=== PATIENT | male | born 1960 | race African-American/Black ===

== ENCOUNTER 2016-09-24 11:37 | Emergency (ER) | payer MEDICAID ==
[~2016-09-24] VITALS: Ht 185.4 cm; Wt 95.0 kg
[~2016-09-24 11:37] MED LIST: CIPR500T2 PO; COUM3TAB PO; COUM5TAB PO; FINA5TAB2 PO; HUMALOG SQ; LEVEMIR SQ; LISI-515 PO; METO25TA3 PO; TAMS0.4C4 PO; VITA500T PO; insulin needles SQ
[2016-09-24 11:39] VITALS: BP 130/65; PULSE 78; RESP 16; TEMP 98.1; O2SAT 96
--- NOTE | 2016-09-24 12:10 | PD ---
HPI Chief Complaint: Syncope/Near-Syncope Time Seen by Provider: 12:10 Travel History International Travel<30 days: No Contact w/Intl Traveler<30days: No Traveled to known affect area: No History of Present Illness HPI 56-year-old Afro-[place] male presents to emergency department with reports of recurrent syncope, generalized weakness, and abdominal pain in the lower abdomen for the past 4 days. Patient was seen by Dr. Rene, the urologist earlier this morning for history of his increasing PSA, and was noted to have symptoms of dizziness, intermittent fever, and question syncope. Urinalysis was performed at that time showing no obvious signs of UTI. Patient is voiding. And moving his bowels appropriately. He denies nausea or vomiting. He has history of type 2 diabetes treated with insulin with high blood sugar [address] Rene's office. Patient denies headache, or upper respiratory symptoms. He denies chest pain. He has a history of atrial fibrillation for which he takes Coumadin. He denies shortness of breath. He states he did not take his long-acting insulin today, as he was worried he might have low sugars due to his generalized weakness. He has no known drug allergies. PFSH Past Medical History Hx Anticoagulant Therapy: Yes Cardiovascular Problems: No Diabetes: Yes Diminished Hearing: No Genitourinary: No Musculoskeletal: No Neurologic: Yes (VERTIGO) Reproductive: No Respiratory: No Social History Alcohol Use: Yes (OCCASIONALLY) Tobacco Use: No Substance Use: No Allergies-Medications (Allergen,Severity, Reaction): Coded Allergies: No Known Allergies (Verified , 09/24/16) Reported Meds & Prescriptions Reported Meds & Active Scripts Active Ciprofloxacin (Ciprofloxacin HCl) 500 Mg Tab 500 Mg PO BID Metoprolol Tartrate 25 Mg Tab 25 Mg PO DAILY Tamsulosin (Tamsulosin HCl) 0.4 Mg Cap 0.4 Mg PO BID Reported Humalog Inj (Insulin Human Lispro) 1,000 Unit/10 Ml Vial 10 Units SQ BIDAC Warfarin 4 Mg Tab 8 Mg PO HS Proscar (Finasteride) 5 Mg Tab 5 Mg PO HS Do not crush. Levemir Inj (Insulin Detemir) 1,000 unit/ 10 ML Vial 10 Units SQ HS Do not mix with any other Insulin. Lisinopril 20 Mg Tab 20 Mg PO BID Review of Systems ROS Limitations: Poor Historian General / Constitutional: Positive: Fever (he states intermittent.), Chills, Weight Loss Eyes: No: Visual changes HENT: Positive: Lightheadedness, No: Headaches, Vertigo, Sore Throat, Rhinitis , Rhinorrhea, Congestion, Neck Stiffness, Neck Pain, Masses, Ear Discharge, Earache Cardiovascular: Positive: Irregular Rhythm (patient has history of atrial fibrillation.), No: Chest Pain or Discomfort Respiratory: No: Cough, Shortness of Breath, Wheezing Gastrointestinal: Positive: Nausea, Abdominal Pain (lower abdominal pain), Loss of Appetite, No: Vomiting, Diarrhea Genitourinary: Positive: Frequency (no more than usual.), Nocturia, Hematuria, Pelvic Pain, No: Urgency, Dysuria, Decreased Urinary Output, Flank Pain Musculoskeletal: Positive: Weakness (generalized), No: Myalgias, Arthralgias, Limited ROM, Cramping, Edema, Pain Skin: No Rash Neurologic: No: Weakness Psychiatric: No: Depression Endocrine: No: Polydipsia Hematologic/Lymphatic: No: Easy Bruising Physical Exam Narrative GENERAL: Patient appears in mild distress. SKIN: Warm and mildly diaphoretic. Normal color. Decreased turgor. HEAD: Atraumatic. Normocephalic. EYES: Pupils equal and round. No scleral icterus. No injection or drainage. Patient has left-sided strabismus. ENT: No nasal bleeding or discharge. Mucous membranes pink and somewhat dry. NECK: Trachea midline. No JVD. Supple and nontender. CARDIOVASCULAR: Regular rate and rhythm. No murmurs gallops or rubs. RESPIRATORY: No accessory muscle use. Clear to auscultation. Breath sounds equal bilaterally. GASTROINTESTINAL: Abdomen soft, patient has mild to moderate tenderness in the right lower quadrant, without guarding or rebound, nondistended. Hepatic and splenic margins not palpable. Patient does have notable right sided flank tenderness with percussion. MUSCULOSKELETAL: Extremities without clubbing, cyanosis, or edema. No obvious deformities. NEUROLOGICAL: Awake and alert. No obvious cranial nerve deficits. Motor grossly within normal limits. Five out of 5 muscle strength in the arms and legs. Normal speech. PSYCHIATRIC: Appropriate mood and affect; insight and judgment normal. Data Data Last Documented VS Vital Signs Date Time Temp Pulse Resp B/P Pulse Ox O2 Delivery O2 Flow Rate FiO2 09/24/16 12:43 20 09/24/16 12:32 98 Room Air 09/24/16 12:11 85 09/24/16 12:11 142/87 09/24/16 11:39 98.1 Orders Electrocardiogram (09/24/16 12:17) Complete Blood Count With Diff (09/24/16 12:17) Comprehensive Metabolic Panel (09/24/16 12:17) Magnesium (Mg) (09/24/16 12:17) Ckmb (Isoenzyme) Profile (09/24/16 12:17) Troponin I (09/24/16 12:17) Act Partial Throm Time (Ptt) (09/24/16 12:17) Prothrombin Time / Inr (Pt) (09/24/16 12:17) Urinalysis - C+S If Indicated (09/24/16 12:17) Blood Glucose (09/24/16 12:17) Ecg Monitoring (09/24/16 12:17) Iv Access Insert/Monitor (09/24/16 12:17) Oximetry (09/24/16 12:17) Sodium Chloride 0.9% Flush (Ns Flush) (09/24/16 12:30) Sodium Chlor 0.9% 1000 Ml Inj (Ns 1000 M (09/24/16 12:17) Orthostatic Vital Signs (09/24/16 12:17) Lipase (09/24/16 12:17) Lactic Acid (09/24/16 12:17) Ct Abd/Pel W Iv Contrast(Rout) (09/24/16 12:17) Morphine Inj (Morphine Inj) (09/24/16 12:30) Ondansetron Inj (Zofran Inj) (09/24/16 12:30) Blood Culture (09/24/16 12:17) Oral Contrast - Adult (09/24/16 12:38) Urine Culture (09/24/16 12:40) Blood Glucose (09/24/16 13:16) Blood Glucose (09/24/16 14:16) Sodium Chlor 0.9% 1000 Ml Inj (Ns 1000 M (09/24/16 13:46) Insulin Human Regular Inj (Novolin R Inj (09/24/16 13:30) Levofloxacin 750 Mg Premix Inj (Levaquin (09/24/16 13:30) Diatrizoate Liq ( Gastroview Liq) (09/24/16 14:23) Morphine Inj (Morphine Inj) (09/24/16 16:15) Iohexol 350 Inj (Omnipaque 350 Inj) (09/24/16 16:20) Tray, Coude Stratton 16fr (09/24/16 17:04) Urinary Catheter Insert/Apply (09/24/16 17:04) Labs Laboratory Tests Test 09/24/16 09/24/16 12:25 12:40 White Blood Count 7.8 TH/MM3 Red Blood Count 4.12 MIL/MM3 Hemoglobin 12.5 GM/DL Hematocrit 36.9 % Mean Corpuscular Volume 89.4 FL Mean Corpuscular Hemoglobin 30.4 PG Mean Corpuscular Hemoglobin 34.0 % Concent Red Cell Distribution Width 13.7 % Platelet Count 192 TH/MM3 Mean Platelet Volume 10.6 FL Neutrophils (%) (Auto) 90.1 % Lymphocytes (%) (Auto) 5.9 % Monocytes (%) (Auto) 3.8 % Eosinophils (%) (Auto) 0.1 % Basophils (%) (Auto) 0.1 % Neutrophils # (Auto) 7.0 TH/MM3 Lymphocytes # (Auto) 0.5 TH/MM3 Monocytes # (Auto) 0.3 TH/MM3 Eosinophils # (Auto) 0.0 TH/MM3 Basophils # (Auto) 0.0 TH/MM3 CBC Comment DIFF FINAL Differential Comment Prothrombin Time 14.1 SEC Prothromb Time International 1.3 RATIO Ratio Activated Partial 34.3 SEC Thromboplast Time Sodium Level 137 MEQ/L Potassium Level 5.1 MEQ/L Chloride Level 100 MEQ/L Carbon Dioxide Level 27.3 MEQ/L Anion Gap 10 MEQ/L Blood Urea Nitrogen 19 MG/DL Creatinine 1.81 MG/DL Estimat Glomerular Filtration 47 ML/MIN Rate Random Glucose 452 MG/DL Lactic Acid Level 1.5 mmol/L Calcium Level 9.6 MG/DL Magnesium Level 2.1 MG/DL Total Bilirubin 0.7 MG/DL Aspartate Amino Transf 16 U/L (AST/SGOT) Alanine Aminotransferase 14 U/L (ALT/SGPT) Alkaline Phosphatase 89 U/L Total Creatine Kinase 35 U/L Troponin I 0.02 NG/ML Total Protein 8.5 GM/DL Albumin 3.4 GM/DL Lipase 151 U/L Urine Color YELLOW Urine Turbidity HAZY Urine pH 5.0 Urine Specific [place] 1.016 Urine Protein NEG mg/dL Urine Glucose (UA) 1000 mg/dL Urine Ketones 10 mg/dL Urine Occult Blood NEG Urine Nitrite NEG Urine Bilirubin NEG Urine Urobilinogen LESS THAN 2.0 MG/DL Urine Leukocyte Esterase MOD Urine RBC 1 /hpf Urine WBC 23 /hpf Urine WBC Clumps OCC Urine Squamous Epithelial <1 /hpf Cells Urine Bacteria MANY /hpf Microscopic Urinalysis Comment CULTURE INDICATED MDM Medical Decision Making Medical Screen Exam Complete: Yes Emergency Medical Condition: Yes Medical Record Reviewed: Yes Differential Diagnosis Electrolyte imbalance. Dehydration. Pyelonephritis. Possible obstruction in the right kidney. Renal colic. Appendicitis. Pancreatitis. History of syncopal episode. Narrative Course Patient is medically stable at time of exam. EKG shows a normal sinus rhythm without significant ST changes. Labs ordered including a fingerstick glucose, CBC, CMP, lactic acid, lipase, magnesium, PT PTT and INR, troponin, and urinalysis. Blood cultures were ordered 2. Orthostatic vital signs are ordered. CT abdomen and pelvis with IV contrast ordered. Patient is given 4 mg Zofran as well as 4 mg morphine IV. Patient is given 1000 mg normal saline bolus. CBC is unremarkable with a white count of 7.8. RBC slightly low at 4.12. Hemoglobin was 12.5. Hematocrit is 36.9. There is also right shift with neutrophils percentage of 98.1. CMP shows a BUN of 19. Creatinine 1.81. GFR estimate 47. Glucose is elevated at 452. Lactic acid is 1.5. Total creatinine kinase is 35 total protein is 8.5. Lipase was 151. Urinalysis shows urine glucose of the thousand, urine ketones of 10, moderate leukocyte esterase esterase with 23 white blood cells per high-power field, and occasional white blood cell clumps. There are many urine bacteria. Urine is cultured. 1330 hrs. Patient was given levofloxacin 750 mg IV, as well as 2 L of normal saline IV total, and he is given insulin 10 units IV. Blood sugars to be rechecked in one hour. CT of the abdomen and pelvis is still pending. Repeat blood sugar at 1615 showed it to be 287. Patient is given an additional [address] scan shows #1 very distended and thick-walled urinary bladder with prostatomegaly. These changes are likely related to chronic bladder outlet obstruction. #2 a 10 mm partially calcified nodule in the right lower lobe with suggested follow-up recommended. 1650 hrs. call was placed to Dr. Rene, the patient's urologist, and the patient was discussed with Dr. Tinsley, who was covering for him. He recommended placing a Stratton catheter, and discharging the patient home with antibiotic treatment and follow with Dr. Rene. 16 daily Stratton was ordered with leg bag for discharge. Patient will be discharged home with a prescription for Levaquin 500 mg daily for 10 days. Patient is to continue the Stratton until seen in follow-up with Dr. Rene's office. Patient is to use his insulin as previously prescribed at home. Patient follow with his primary care physician regarding his diabetes and insulin. Patient can return to emergency department if worsening symptoms develop. Diagnosis Primary Impression: Prostatitis, acute Additional Impressions: Urinary tract infection Qualified Code: N30.00 - Acute cystitis without hematuria Hyperglycemia due to type 2 diabetes mellitus Qualified Code: E11.65 - Type 2 diabetes mellitus with hyperglycemia, with long-term current use of insulin Lower urinary tract obstruction Referrals: Tanner Rene DO call for appointment Patient Instructions: Stratton Catheter Placement and Care (ED), General Instructions, Prostatitis (ED), Urinary Retention in Men (ED), Urinary Tract Infection in Men (DC) Med/Other Pt SpecificInfo: Prescription(s) given Disposition: 01 DISCHARGE HOME Condition: Stable Jori Valadez Sep 24, 2016 12:10
[2016-09-24 12:11] VITALS: BP 142/87; PULSE 80; RESP 18; O2SAT 98
[2016-09-24] MEDS ORDERED: SODIUM CHLOR 0.9% 1000 ML INJ 1,000 ML IV ONE ×2 (12:17→13:46)
[2016-09-24] MEDS ORDERED: SODIUM CHLORIDE 0.9% FLUSH 5 ML FLUSH IVF PRN (12:30)
[2016-09-24] MEDS ORDERED: ONDANSETRON HCL 4 MG/2 ML VIAL IVP ONE (12:30)
[2016-09-24] MEDS ORDERED: MORPHINE SULFATE 4 MG/ML INJ IV PUSH ONE ×2 (12:30→16:15)
[2016-09-24 12:32] VITALS: O2SAT 98
[2016-09-24 12:41] LABS: BASOPHIL % 0.1 % (0.0-2.0); EOSINOPHIL % 0.1 % (0.0-4.0); HEMATOCRIT 36.9 % (39.0-51.0); HEMO FLAGS DIFF FINAL; LYMPH % 5.9 % (9.0-44.0); LYMPHOCYTE # 0.5 TH/MM3 (1.0-4.8); MEAN CELL VOLUME 89.4 FL (80.0-100.0); MEAN CORPUSCULAR HEMOGLOBIN 30.4 PG (27.0-34.0); MONO % 3.8 % (0.0-8.0); NEUT % 90.1 % (16.0-70.0); PLATELET COUNT 192 TH/MM3 (150-450); RED BLOOD COUNT 4.12 MIL/MM3 (4.50-5.90); RED CELL DISTRIBUTION WIDTH 13.7 % (11.6-17.2); WHITE BLOOD COUNT 7.8 TH/MM3 (4.0-11.0)
[2016-09-24 13:01] LABS: APTT (PATIENT) 34.3 SEC (24.3-30.1); INTERNATIONAL NORMALIZED RATIO 1.3 RATIO; PROTHROMBIN TIME - PATIENT 14.1 SEC (9.8-11.6)
[2016-09-24 13:10] LABS: BACTERIA, URINE MANY /hpf; BLOOD, URINE NEG (NEG); COMMENT (UR) CULTURE INDICATED; CULTURE IF INDICATED CULTURE INDICATED; GLUCOSE,URINE 1000 mg/dL (NEG); KETONE, URINE 10 mg/dL (NEG); NITRITE,URINE NEG (NEG); SQUAMOUS EPITHELIAL CELL URINE <1 /hpf (0-5); URINE COLOR YELLOW (YELLW/STRAW)
[2016-09-24 13:11] LABS: ALKALINE PHOSPHATASE 89 U/L (45-117); ALT (GPT) 14 U/L (12-78); ANION GAP 10 MEQ/L (5-15); AST (GOT) 16 U/L (15-37); BICARBONATE 27.3 MEQ/L (21.0-32.0); BLOOD UREA NITROGEN 19 MG/DL (7-18); CHLORIDE 100 MEQ/L (98-107); CREATINE KINASE 35 U/L (39-308); GLOMERULAR FILTRATION RATE 47 ML/MIN (>89); MAGNESIUM 2.1 MG/DL (1.5-2.5); POTASSIUM 5.1 MEQ/L (3.5-5.1); SODIUM (NA) 137 MEQ/L (136-145); TOTAL BILIRUBIN ADULT 0.7 MG/DL (0.2-1.0)
[2016-09-24] MEDS ORDERED: INSULIN HUMAN REGULAR 1,000 UNITS/10 ML VIAL IV PUSH ONE (13:30)
[2016-09-24] MEDS ORDERED: LEVOFLOXACIN 750 MG PREMIX INJ 150 ML IV ONE (13:30)
[2016-09-24] MEDS ORDERED: PROS5TAB PO (13:53)
[2016-09-24] MEDS ORDERED: WARF-20 PO (13:53)
[2016-09-24] MEDS ORDERED: HUMALOG SQ (13:54)
[2016-09-24] MEDS ORDERED: DIATRIZOATE MEGLUM/DIATRIZOATE SOD 9 ML CUP ONE (14:23)
[2016-09-24 14:45] VITALS: BP 137/89; PULSE 76; RESP 18; O2SAT 99
[2016-09-24] MEDS ORDERED: IOHEXOL 350 MG/ML 10 ML VIAL (for RAD DIAG) IV ONE (16:20)
--- NOTE | 2016-09-24 16:42 | RADRPT ---
EXAM DATE/TIME: 09/24/2016 15:59 [facility] COMPARISON: No previous studies available for comparison. INDICATIONS : Persistent abdominal pain with dizziness. IV CONTRAST: 100 cc Visipaque (iodixanol) IV ORAL CONTRAST: Prescribed oral contrast ingested. RADIATION DOSE: 14.05 CTDIvol (mGy) MEDICAL HISTORY : Hypertension. Diabetes mellitus type 1. SURGICAL HISTORY : None. ENCOUNTER: Initial ACUITY: 1 day PAIN SCALE: 5/10 LOCATION: Right lower quadrant TECHNIQUE: Volumetric scanning of the abdomen and pelvis was performed. Using automated exposure control and ad justment of the mA and/or kV according to patient size, radiation dose was kept as low as reasonably achievable to obtain optimal diagnostic quality images. FINDINGS: LOWER LUNGS: There is an essentially calcified nodule in the right lower lobe measuring 10 mm. LIVER: There is a 6 mm low density lesion in the right posterior liver. It is too small to characterize. The re is mild focal fat adjacent to the falciform ligament. There is no dilation of the biliary tree. No calcified gallstones. SPLEEN: Mildly enlarged measuring 13.8 cm in length. No focal lesion is seen. PANCREAS: There are calcifications within the pancreatic head and uncinate process. No duct dilatation or solid mass is seen. KIDNEYS: Normal in size and shape. There is no mass, stone or hydronephrosis. ADRENAL GLANDS: Within normal limits. VASCULAR: There is no aortic aneurysm. There is moderate atherosclerotic disease. BOWEL/MESENTERY: The stomach, small bowel, and colon demonstrate no acute abnormality. There is no free intraperitone al air or fluid. ABDOMINAL WALL: Within normal limits. RETROPERITONEUM: There is no lymphadenopathy. BLADDER: Urinary bladder is very distended and demonstrates circumferential wall thickening. No mass or calcif ications are seen. REPRODUCTIVE: The prostate gland is enlarged. INGUINAL: There is no lymphadenopathy or hernia. MUSCULOSKELETAL: There are degenerative changes of the lumbar spine but no acute osseous abnormality is seen. CONCLUSION: 1. No acute finding is identified within the abdomen or pelvis. 2. Very distended and thick-walled urinary bladder with prostatomegaly. These changes are likely rela nahun to chronic bladder outlet obstruction. 3. There is a 10 mm partially calcified nodule in the right lower lobe. Suggest followup to confirm s tability. 4. Nonacute findings include mild splenomegaly, moderate atherosclerotic disease, and pancreatic calc ifications suggestive of prior pancreatitis. Ventura Hernandez MD on September 24, 2016 at 16:35 Board Certified Radiologist. This report was verified electronically.
[2016-09-24] MEDS ORDERED: LEVA500T PO (17:36)
[2016-09-24] MEDS ORDERED: TRAM50TA PO (17:36)
[2016-09-24 17:45] VITALS: BP 131/74; PULSE 70; RESP 18; O2SAT 98
[2016-09-24 18:34] VITALS: BP 134/76; PULSE 72; RESP 18; O2SAT 98
--- NOTE | 2016-09-25 15:46 | EKG ---
Date Performed: 09/24/2016 Time Performed: 12:23:58 PTAGE: 56 years EKG: Sinus rhythm WITH SINUS ARRHYTHMIA VOLTAGE CRITERIA FOR LVH ABNORMAL ECG PREVIOUS TRACING : 02/19/2013 07.13 No significant change from previous tracing noted. DOCTOR: Kyle Kathleen Interpretating Date/Time 09/25/2016 15:45:15
[2016-10-04] MEDS ORDERED: METO25TA3 PO (16:13)
[2016-10-04] MEDS ORDERED: NOVORP2 SQ (16:26)
[2016-10-04] MEDS ORDERED: LEVEMIR SQ (17:02)
[2016-10-08] MEDS ORDERED: NOVORP2 SQ (12:23)
[2016-10-08] MEDS ORDERED: HUMALOG SQ (12:44)
[2016-10-11] MEDS ORDERED: [UNRECOGNIZED DRUG - CODE] (12:32)
[2016-10-11] MEDS ORDERED: [UNRECOGNIZED DRUG - CODE] TOP (12:32)
[2016-10-23] MEDS ORDERED: ONETKIT11 (10:49)
[2016-10-23] MEDS ORDERED: ONETTES4 (10:49)
[2016-10-23] MEDS ORDERED: ONETMIS8 (10:49)
[2016-11-08] MEDS ORDERED: NOVORP2 SQ (12:44)
[2016-12-14] MEDS ORDERED: MECL-62 PO (16:31)
[2017-01-03] MEDS ORDERED: HUMALOG SQ (08:34)
== END 2016-09-24 18:50 | disposition home or self-care (01) ==
LOC: NEPE 11:37
DX: N41.0 Acute prostatitis (principal); N30.00 Acute cystitis without hematuria; E11.65 Type 2 diabetes mellitus with hyperglycemia; N13.9 Obstructive and reflux uropathy, unspecified; B96.20 Unspecified Escherichia coli [E. coli] as the cause of diseases classified elsewhere; R94.31 Abnormal electrocardiogram [ECG] [EKG]; R53.1 Weakness; R10.30 Lower abdominal pain, unspecified; R42 Dizziness and giddiness; I48.91 Unspecified atrial fibrillation; Z79.4 Long term (current) use of insulin; Z79.01 Long term (current) use of anticoagulants; Z86.69 Personal history of other diseases of the nervous system and sense organs
CPT/HCPCS: 51703; 74177; 80053; 81001; 82550; 83605; 83690; 83735; 84484; 85025; 85610; 85730; 87040; 87077; 87086; 87186; 93005; 96361; 96374; 96375; 99285; J1815; J1956; J2270; J2405; J7030; Q9963; Q9967

== ENCOUNTER 2016-09-30 22:30 | Observation (INO) | payer MEDICAID ==
[~2016-09-30 22:30] MED LIST changes: -COUM3TAB PO; -COUM5TAB PO; -FINA5TAB2 PO; +LEVA500T PO; +PROS5TAB PO; +TRAM50TA PO; -VITA500T PO; +WARF-20 PO; -insulin needles SQ
[2016-09-30] MEDS ORDERED: MECLIZINE HCL 25 MG TAB PO ONE (22:45)
[2016-09-30] MEDS ORDERED: ONDANSETRON HCL 4 MG/2 ML VIAL IVP ONE (22:45)
[2016-09-30] MEDS ORDERED: SODIUM CHLOR 0.9% 1000 ML INJ 1,000 ML IV SCH (22:46)
--- NOTE | 2016-09-30 22:46 | PD ---
HPI Chief Complaint: syncope Time Seen by Provider: 22:38 Travel History International Travel<30 days: No Contact w/Intl Traveler<30days: No Traveled to known affect area: No History of Present Illness HPI 56-year-old male with history of atrial fibrillation on Coumadin, left eye blindness, currently being treated for prostatitis on Levaquin. He presents via EMS for evaluation of syncopal episode. The patient currently has a Stratton catheter in place. He reports a prior to arrival he was emptying the Stratton catheter when he became dizzy and passed out and landed on the ground. He woke up on the ground. He is complaining of an occipital headache where he hit his head. He has a tiny laceration there. He is complaining of some lower back pain as well. He is currently experiencing dizziness which he describes as a room spinning sensation. He denies any chest pain, shortness of breath, palpitations, nausea or vomiting, neck pain, numbness or tingling or weakness in extremities. Blood sugar was read as "high" according to EMS. He has a history of diabetes, he does not remember if he took his insulin today. No other complaints. Last tetanus vaccination 2015. PFSH Past Medical History Hx Anticoagulant Therapy: Yes Cardiovascular Problems: No Diabetes: Yes Diminished Hearing: No Genitourinary: No Musculoskeletal: No Neurologic: Yes (VERTIGO) Reproductive: No Respiratory: No Past Surgical History Prostatectomy: Yes Social History Alcohol Use: Yes (OCCASIONALLY) Tobacco Use: No Substance Use: No Allergies-Medications (Allergen,Severity, Reaction): Coded Allergies: No Known Allergies (Verified , 09/24/16) Reported Meds & Prescriptions Reported Meds & Active Scripts Active Tramadol (Tramadol HCl) 50 Mg Tab 50 Mg PO Q6H PRN Levaquin (Levofloxacin) 500 Mg Tab 500 Mg PO DAILY Tamsulosin (Tamsulosin HCl) 0.4 Mg Cap 0.4 Mg PO BID Reported Humalog Inj (Insulin Human Lispro) 1,000 Unit/10 Ml Vial 10 Units SQ BIDAC Warfarin 4 Mg Tab 8 Mg PO HS Proscar (Finasteride) 5 Mg Tab 5 Mg PO HS Do not crush. Levemir Inj (Insulin Detemir) 1,000 unit/ 10 ML Vial 10 Units SQ HS Do not mix with any other Insulin. Lisinopril 20 Mg Tab 20 Mg PO BID Review of Systems Except as stated in HPI: all other systems reviewed are Neg Physical Exam Narrative GENERAL: Well-developed well-nourished male in no acute distress answering questions appropriately. SKIN: Warm and dry. Linear 1 cm laceration occipital scalp HEAD: Skin as noted above Normocephalic. EYES: Pupils round, right pupil is reactive to light. ENT: No nasal bleeding or discharge. Mucous membranes pink and moist. NECK: Trachea midline. No JVD. CARDIOVASCULAR: Regular rate and rhythm. No murmur appreciated. RESPIRATORY: No accessory muscle use. Clear to auscultation. Breath sounds equal bilaterally. GASTROINTESTINAL: Abdomen soft, non-tender, nondistended. Hepatic and splenic margins not palpable. MUSCULOSKELETAL: No obvious deformities. Some tenderness to palpation to the lower back. NEUROLOGICAL: Awake and alert. No obvious cranial nerve deficits. Motor grossly within normal limits. Normal speech. Data Data Last Documented VS Vital Signs Date Time Temp Pulse Resp B/P Pulse Ox O2 Delivery O2 Flow Rate FiO2 10/01/16 02:00 84 16 164/77 98 09/30/16 23:03 98.0 Orders Electrocardiogram (09/30/16 22:41) Complete Blood Count With Diff (09/30/16 22:41) Comprehensive Metabolic Panel (09/30/16 22:41) Magnesium (Mg) (09/30/16 22:41) Ckmb (Isoenzyme) Profile (09/30/16 22:41) Troponin I (09/30/16 22:41) Act Partial Throm Time (Ptt) (09/30/16 22:41) Prothrombin Time / Inr (Pt) (09/30/16 22:41) Ct Brain W/O Iv Contrast(Rout) (09/30/16 22:41) Meclizine (Antivert) (09/30/16 22:45) Ondansetron Inj (Zofran Inj) (09/30/16 22:45) Spine, Lumbar - Ltd (Ap & Lat) (09/30/16 ) Sodium Chlor 0.9% 1000 Ml Inj (Ns 1000 M (09/30/16 22:46) Sodium Chlor 0.9% 1000 Ml Inj (Ns 1000 M (10/01/16 00:45) Resp Blood Gas Venous (10/01/16 ) Insulin Human Regular Inj (Novolin R Inj (10/01/16 00:45) Lactic Acid (10/01/16 00:32) Blood Gas Venous (Vbg) (10/01/16 01:15) Urinalysis - C+S If Indicated (10/01/16 01:37) Admit Order (Ed Use Only) (10/01/16 02:05) Labs Laboratory Tests Test 09/30/16 10/01/16 10/01/16 23:05 01:15 02:00 Prothrombin Time 14.2 SEC Prothromb Time International 1.3 RATIO Ratio Activated Partial 38.3 SEC Thromboplast Time White Blood Count 11.1 TH/MM3 Red Blood Count 3.99 MIL/MM3 Hemoglobin 11.8 GM/DL Hematocrit 35.7 % Mean Corpuscular Volume 89.5 FL Mean Corpuscular Hemoglobin 29.6 PG Mean Corpuscular Hemoglobin 33.1 % Concent Red Cell Distribution Width 14.2 % Platelet Count 254 TH/MM3 Mean Platelet Volume 10.0 FL Neutrophils (%) (Auto) 91.5 % Lymphocytes (%) (Auto) 4.1 % Monocytes (%) (Auto) 4.0 % Eosinophils (%) (Auto) 0.1 % Basophils (%) (Auto) 0.3 % Neutrophils # (Auto) 10.2 TH/MM3 Lymphocytes # (Auto) 0.5 TH/MM3 Monocytes # (Auto) 0.4 TH/MM3 Eosinophils # (Auto) 0.0 TH/MM3 Basophils # (Auto) 0.0 TH/MM3 CBC Comment AUTO DIFF Differential Total Cells 100 Counted Neutrophils % (Manual) 59 % Band Neutrophils % 15 % Lymphocytes % 23 % Monocytes % 1 % Neutrophils # (Manual) 8.4 TH/MM3 Metamyelocytes 2 % Differential Comment FINAL DIFF MANUAL Toxic Granulation 1+ Toxic Vacuolation PRESENT Platelet Estimate NORMAL Platelet Morphology Comment NORMAL Red Cell Morphology Comment NORMAL Sodium Level 135 MEQ/L Potassium Level 4.4 MEQ/L Chloride Level 93 MEQ/L Carbon Dioxide Level 24.8 MEQ/L Anion Gap 17 MEQ/L Blood Urea Nitrogen 29 MG/DL Creatinine 1.91 MG/DL Estimat Glomerular Filtration 44 ML/MIN Rate Random Glucose 579 MG/DL Calcium Level 9.6 MG/DL Magnesium Level 2.5 MG/DL Total Bilirubin 0.7 MG/DL Aspartate Amino Transf 29 U/L (AST/SGOT) Alanine Aminotransferase 16 U/L (ALT/SGPT) Alkaline Phosphatase 99 U/L Total Creatine Kinase 42 U/L Troponin I LESS THAN 0.02 NG/ML Total Protein 8.3 GM/DL Albumin 2.8 GM/DL Blood Gas Puncture Site PIV Blood Gas Patient Temperature 98.6 Venous Blood pH 7.34 Venous Blood Partial Pressure 36 mmHg CO2 Venous Blood Partial Pressure 34 mmHg O2 Venous Blood HCO3 19 mmol/L Venous Blood Oxygen Saturation 44 % Venous Blood Oxygen Content 6.6 Vol % Venous Blood Base Excess -5.6 mmol/L Oxygen Delivery Device RA Blood Gas Inspired Oxygen 21 % Urine Color LIGHT-YELLOW Urine Turbidity HAZY Urine pH 5.0 Urine Specific [place] 1.017 Urine Protein NEG mg/dL Urine Glucose (UA) 1000 mg/dL Urine Ketones 80 mg/dL Urine Occult Blood LARGE Urine Nitrite POS Urine Bilirubin NEG Urine Urobilinogen LESS THAN 2.0 MG/DL Urine Leukocyte Esterase MOD Urine RBC 11 /hpf Urine WBC 39 /hpf Urine Bacteria FEW /hpf Urine Mucus FEW /lpf Microscopic Urinalysis Comment CULTURE INDICATED MDM Medical Decision Making Medical Screen Exam Complete: Yes Emergency Medical Condition: Yes Medical Record Reviewed: Yes Differential Diagnosis Peripheral vertigo, central vertigo, closed head injury, intracranial hemorrhage , CVA Narrative Course 56-year-old male presents for evaluation after syncopal episode. He is currently experiencing a vertigo-like sensation. Plan is for basic lab work, EKG, CT the brain and lumbar spine x-ray. At the end of my shift the patient was signed out to Dr. Horner pending workup. Procedures EKG Prior to Arrival: Yes Scripts Metoprolol Tartrate 50 Mg Tab50 Mg PO BID #60 TAB Ref 0 Prov:Sunita Lovell MD 10/02/16 Meclizine 25 Mg Tab25 Mg PO TID PRN (VERTIGO) #60 TAB Ref 0 Prov:Sunita Lovell MD 10/02/16 Vlad Comer Sep 30, 2016 22:46
[2016-09-30 23:03] VITALS: BP 167/93; PULSE 91; RESP 18; TEMP 98; O2SAT 95
[2016-09-30 23:22] LABS: AUTOMATED NEUTROPHIL # 10.2 TH/MM3 (1.8-7.7); BASOPHIL % 0.3 % (0.0-2.0); EOSINOPHIL % 0.1 % (0.0-4.0); HEMATOCRIT 35.7 % (39.0-51.0); LYMPH % 4.1 % (9.0-44.0); LYMPHOCYTE # 0.5 TH/MM3 (1.0-4.8); MEAN CELL VOLUME 89.5 FL (80.0-100.0); MEAN CORPUSCULAR HEMOGLOBIN 29.6 PG (27.0-34.0); MEAN CORPUSCULAR HGB CONC 33.1 % (32.0-36.0); NEUT % 91.5 % (16.0-70.0); PLATELET COUNT 254 TH/MM3 (150-450); RED BLOOD COUNT 3.99 MIL/MM3 (4.50-5.90); RED CELL DISTRIBUTION WIDTH 14.2 % (11.6-17.2); WHITE BLOOD COUNT 11.1 TH/MM3 (4.0-11.0)
[2016-09-30 23:28] LABS: HEMO FLAGS AUTO DIFF
[2016-09-30 23:30] LABS: APTT (PATIENT) 38.3 SEC (24.3-30.1); INTERNATIONAL NORMALIZED RATIO 1.3 RATIO; PROTHROMBIN TIME - PATIENT 14.2 SEC (9.8-11.6)
--- NOTE | 2016-09-30 23:31 | RADRPT ---
EXAM DATE/TIME: 09/30/2016 23:07 [facility] COMPARISON: CT ABDOMEN & PELVIS W CONTRAST, September 24, 2016, 15:59. INDICATIONS : Pain from fall. MEDICAL HISTORY : None. SURGICAL HISTORY : None. ENCOUNTER: Initial ACUITY: 1 day PAIN SCORE: 5/10 LOCATION: Lumbar. FINDINGS: 3 views of the lumbar spine. Apparent urinary bladder catheter in place. Bone alignment within normal limits. No evidence of fracture. Small endplate osteophytes at every level of the lumbar spine. L4- 5 and L5-S1. CONCLUSION: Mild bony degenerative findings. No evidence of fracture. Minesh Rivas MD on September 30, 2016 at 23:27 Board Certified Radiologist. This report was verified electronically.
[2016-10-01] VITALS (12 sets, daily range): BP systolic 133–190; BP diastolic 74–92; PULSE 60–97; RESP 16–21; TEMP 97.6–98.9; O2SAT 94–98
[2016-10-01 00:02] LABS: ALKALINE PHOSPHATASE 99 U/L (45-117); ALT (GPT) 16 U/L (12-78); ANION GAP 17 MEQ/L (5-15); AST (GOT) 29 U/L (15-37); BICARBONATE 24.8 MEQ/L (21.0-32.0); BLOOD UREA NITROGEN 29 MG/DL (7-18); CHLORIDE 93 MEQ/L (98-107); GLOMERULAR FILTRATION RATE 44 ML/MIN (>89); MAGNESIUM 2.5 MG/DL (1.5-2.5); POTASSIUM 4.4 MEQ/L (3.5-5.1); SODIUM (NA) 135 MEQ/L (136-145); TOTAL BILIRUBIN ADULT 0.7 MG/DL (0.2-1.0)
[2016-10-01 00:05] LABS: CREATINE KINASE 42 U/L (39-308)
[2016-10-01] MEDS ORDERED: INSULIN HUMAN REGULAR 1,000 UNITS/10 ML VIAL IV PUSH ONE (00:45)
[2016-10-01] MEDS ORDERED: SODIUM CHLOR 0.9% 1000 ML INJ 1,000 ML IV SCH (00:45)
--- NOTE | 2016-10-01 01:24 | RADRPT ---
EXAM DATE/TIME: 10/01/2016 00:36 [facility] COMPARISON: CT BRAIN W/O CONTRAST, February 19, 2013, 6:58. INDICATIONS : Trauma, fall. RADIATION DOSE: 44.55 CTDIvol (mGy) MEDICAL HISTORY : Benign prostatic hyperplasia, (BPH). Hypertension. Diabetes. SURGICAL HISTORY : Prostatectomy. ENCOUNTER: Initial ACUITY: 1 day PAIN SCALE: 3/10 LOCATION: cranial TECHNIQUE: Multiple contiguous axial images were obtained of the head. Using automated exposure control and adj ustment of the mA and/or kV according to patient size, radiation dose was kept as low as reasonably a chievable to obtain optimal diagnostic quality images. FINDINGS: CEREBRUM: The ventricles are normal for age. No evidence of midline shift, mass lesion, hemorrhage or acute in farction. No extra-axial fluid collections are seen. POSTERIOR FOSSA: The cerebellum and brainstem are intact. The 4th ventricle is midline. The cerebellopontine angle i s unremarkable. EXTRACRANIAL: The visualized portion of the orbits is intact. SKULL: The calvaria is intact. No evidence of skull fracture. CONCLUSION: No acute intracranial findings. Minesh Rivas MD on October 01, 2016 at 1:21 Board Certified Radiologist. This report was verified electronically.
[2016-10-01 01:29] LABS: BANDS 15 % (0-6); METAMYELOCYTES 2 % (0-1); NEUTROPHIL # MANUAL DIFF 8.4 TH/MM3 (1.8-7.7); PLATELET ESTIMATE SMEAR NORMAL (NORMAL); PLATELET MORPHOLOGY NORMAL (NORMAL); POLYS (SEG NEUTROPHILS) 59 % (16-70); SCAN/DIFF FINAL DIFF MANUAL; WBC DIFF SAMPLE 100
[2016-10-01 01:30] LABS: TOXIC GRANULATION 1+ (NORMAL); TOXIC VACUOLATION PRESENT (NONE SEEN)
[2016-10-01 01:37] LABS: BLOOD GAS VENOUS BASE EXCESS -5.6 mmol/L (-2-2); BLOOD GAS VENOUS HCO3 19 mmol/L (22-26); BLOOD GAS VENOUS O2 CONTENT 6.6 Vol % (9.0-17.0); BLOOD GAS VENOUS O2 HGB SAT 44 % (70-76); BLOOD GAS VENOUS PCO2 36 mmHg (44-48); BLOOD GAS VENOUS PO2 34 mmHg (35-40); BLOOD GAS VENOUS pH 7.34 (7.360-7.400); CRITICAL VALUE NO; FIO2 21 %; OXYGEN DEVICE RA; TEMP CORR TO 98.6
[2016-10-01 01:39] LABS: DRAW SITE PIV
--- NOTE | 2016-10-01 01:56 | PD ---
Data Data Last Documented VS Vital Signs Date Time Temp Pulse Resp B/P Pulse Ox O2 Delivery O2 Flow Rate FiO2 10/01/16 01:20 88 16 138/79 98 09/30/16 23:03 98.0 Orders Electrocardiogram (09/30/16 22:41) Complete Blood Count With Diff (09/30/16 22:41) Comprehensive Metabolic Panel (09/30/16 22:41) Magnesium (Mg) (09/30/16 22:41) Ckmb (Isoenzyme) Profile (09/30/16 22:41) Troponin I (09/30/16 22:41) Act Partial Throm Time (Ptt) (09/30/16 22:41) Prothrombin Time / Inr (Pt) (09/30/16 22:41) Ct Brain W/O Iv Contrast(Rout) (09/30/16 22:41) Meclizine (Antivert) (09/30/16 22:45) Ondansetron Inj (Zofran Inj) (09/30/16 22:45) Spine, Lumbar - Ltd (Ap & Lat) (09/30/16 ) Sodium Chlor 0.9% 1000 Ml Inj (Ns 1000 M (09/30/16 22:46) Sodium Chlor 0.9% 1000 Ml Inj (Ns 1000 M (10/01/16 00:45) Resp Blood Gas Venous (10/01/16 ) Insulin Human Regular Inj (Novolin R Inj (10/01/16 00:45) Lactic Acid (10/01/16 00:32) Blood Gas Venous (Vbg) (10/01/16 01:15) Urinalysis - C+S If Indicated (10/01/16 01:37) Labs Laboratory Tests Test 09/30/16 10/01/16 23:05 01:15 Prothrombin Time 14.2 SEC Prothromb Time International 1.3 RATIO Ratio Activated Partial 38.3 SEC Thromboplast Time White Blood Count 11.1 TH/MM3 Red Blood Count 3.99 MIL/MM3 Hemoglobin 11.8 GM/DL Hematocrit 35.7 % Mean Corpuscular Volume 89.5 FL Mean Corpuscular Hemoglobin 29.6 PG Mean Corpuscular Hemoglobin 33.1 % Concent Red Cell Distribution Width 14.2 % Platelet Count 254 TH/MM3 Mean Platelet Volume 10.0 FL Neutrophils (%) (Auto) 91.5 % Lymphocytes (%) (Auto) 4.1 % Monocytes (%) (Auto) 4.0 % Eosinophils (%) (Auto) 0.1 % Basophils (%) (Auto) 0.3 % Neutrophils # (Auto) 10.2 TH/MM3 Lymphocytes # (Auto) 0.5 TH/MM3 Monocytes # (Auto) 0.4 TH/MM3 Eosinophils # (Auto) 0.0 TH/MM3 Basophils # (Auto) 0.0 TH/MM3 CBC Comment AUTO DIFF Differential Total Cells 100 Counted Neutrophils % (Manual) 59 % Band Neutrophils % 15 % Lymphocytes % 23 % Monocytes % 1 % Neutrophils # (Manual) 8.4 TH/MM3 Metamyelocytes 2 % Differential Comment FINAL DIFF MANUAL Toxic Granulation 1+ Toxic Vacuolation PRESENT Platelet Estimate NORMAL Platelet Morphology Comment NORMAL Red Cell Morphology Comment NORMAL Sodium Level 135 MEQ/L Potassium Level 4.4 MEQ/L Chloride Level 93 MEQ/L Carbon Dioxide Level 24.8 MEQ/L Anion Gap 17 MEQ/L Blood Urea Nitrogen 29 MG/DL Creatinine 1.91 MG/DL Estimat Glomerular Filtration 44 ML/MIN Rate Random Glucose 579 MG/DL Calcium Level 9.6 MG/DL Magnesium Level 2.5 MG/DL Total Bilirubin 0.7 MG/DL Aspartate Amino Transf 29 U/L (AST/SGOT) Alanine Aminotransferase 16 U/L (ALT/SGPT) Alkaline Phosphatase 99 U/L Total Creatine Kinase 42 U/L Troponin I LESS THAN 0.02 NG/ML Total Protein 8.3 GM/DL Albumin 2.8 GM/DL Blood Gas Puncture Site PIV Blood Gas Patient Temperature 98.6 Venous Blood pH 7.34 Venous Blood Partial Pressure 36 mmHg CO2 Venous Blood Partial Pressure 34 mmHg O2 Venous Blood HCO3 19 mmol/L Venous Blood Oxygen Saturation 44 % Venous Blood Oxygen Content 6.6 Vol % Venous Blood Base Excess -5.6 mmol/L Oxygen Delivery Device RA Blood Gas Inspired Oxygen 21 % MDM Supervised Visit with YAIR: Yes Interpretation(s) Afebrile Leukocytosis with 15% bandemia Renal insufficiency Glucose is 579 Troponin is normal Anion gap is 17 VBG: PH is 7.[address] of the head: No intracranial hemorrhage Differential Diagnosis Arrhythmia, electrolyte abnormality, dehydration, urinary tract infection Narrative Course This is a 56-year-old male who presents to the emergency department having had an episode of syncope followed by dizziness and weakness. Patient was placed on a monitor and an IV was established. He was found to be hyperglycemic with renal insufficiency which is similar to labs from one week ago. Patient was diagnosed with bladder outlet obstruction and a urinary tract infection one week ago and was discharged on antibiotics with a [place] catheter. He is not followed up with Dr. Rene yet. Patient was given 2 L of IV hydration, meclizine and Zofran but he continues to feel weak and dizzy. CT imaging of the head was reassuring. Patient will be admitted for continued IV hydration in the setting of syncope. Diagnosis Primary Impression: Syncope Qualified Code: R55 - Syncope, unspecified syncope type Admitting Information Admitting Physician Requests: Admit Thalia Horner MD Oct 01, 2016 01:56
[2016-10-01 02:28] LABS: BACTERIA, URINE FEW /hpf; BLOOD, URINE LARGE (NEG); COMMENT (UR) CULTURE INDICATED; CULTURE IF INDICATED CULTURE INDICATED; GLUCOSE,URINE 1000 mg/dL (NEG); KETONE, URINE 80 mg/dL (NEG); MUCUS URINE FEW /lpf (OCC); NITRITE,URINE POS (NEG); URINE COLOR LIGHT-YELLOW (YELLW/STRAW)
[2016-10-01] MEDS ORDERED: cefTRIAXone INJ 1,000 MG in SODIUM CHLORIDE 0.9% INJ 100 ML IV ONE (02:30)
[2016-10-01] MEDS ORDERED: DEXTROSE 50% IN WATER 50 ML VIAL(D50) IV PUSH PRN (03:15)
[2016-10-01] MEDS ORDERED: GLUCAGON 1 MG/ML VIAL OTHER PRN (03:15)
[2016-10-01] MEDS ORDERED: SODIUM CHLORIDE 0.9% FLUSH 5 ML FLUSH IV PRN (03:15)
[2016-10-01] MEDS: SODIUM CHLOR 0.9% 1000 ML INJ 1,000 ML IV SCH ×2 (03:59→15:50)
[2016-10-01] MEDS ORDERED: INSULIN DETEMIR 100 UNITS/ML VIAL SQ ONE (04:15)
[2016-10-01] MEDS: INSULIN ASPART SUPPLEMENTAL SCALE SQ SCH ×4 (06:51→21:32)
--- NOTE | 2016-10-01 09:06 | HHI.HP ---
[facility] No Primary Care Physician Admission Diagnosis hyperglycemia, syncope Diagnoses: Chief Complaint: dizziness Travel History International Travel<30 Days: No Contact w/Intl Traveler <30 Da: No Traveled to Known Affected Are: No History of Present Illness 56-year-old male with history of atrial fibrillation on Coumadin, left eye blindness, DM, BPH, HTN, currently being treated for prostatitis on Levaquin. He presents via EMS for evaluation of syncopal episode. He also says he has a h /o vertigo, and he reports dizziness/lightheadedness. Says he might think is related to meds. However he had this symptoms prior having started meds. The patient currently has a Miller catheter in place. Says prior to arrival he was emptying the Miller catheter when he became dizzy and passed out and landed on the ground. He woke up on the ground. He is complaining of an occipital headache where he hit his head. He has a tiny laceration there. He is complaining of some lower back pain as well. He is currently experiencing dizziness which he describes as a room spinning sensation. He denies any chest pain, shortness of breath, palpitations, nausea or vomiting, neck pain, numbness or tingling or weakness in extremities. Blood sugar was read as "high " according to EMS. He has a history of diabetes, he does not remember if he took his insulin. Denies chest pain, diaphoresis, nausea. Says he feel his heart racing at times. Says he follows with Dr Rene urology, however he missed the follow up appointment. No fever or chills. No other complaints. Review of Systems Except as stated in HPI: all other systems reviewed are Neg 12 ROS reviewe and negative except as stated in HPI Past Family Social History Past Medical History Prior bouts of vertigo Left eye blindness BPH Afib DM Past Surgical History Cystoscopy Reported Medications Reported Meds & Active Scripts Active Tramadol (Tramadol HCl) 50 Mg Tab 50 Mg PO Q6H PRN Levaquin (Levofloxacin) 500 Mg Tab 500 Mg PO DAILY Ciprofloxacin (Ciprofloxacin HCl) 500 Mg Tab 500 Mg PO BID Metoprolol Tartrate 25 Mg Tab 25 Mg PO DAILY Tamsulosin (Tamsulosin HCl) 0.4 Mg Cap 0.4 Mg PO BID Reported Humalog Inj (Insulin Human Lispro) 1,000 Unit/10 Ml Vial 10 Units SQ BIDAC Warfarin 4 Mg Tab 8 Mg PO HS Proscar (Finasteride) 5 Mg Tab 5 Mg PO HS Do not crush. Levemir Inj (Insulin Detemir) 1,000 unit/ 10 ML Vial 10 Units SQ HS Do not mix with any other Insulin. Lisinopril 20 Mg Tab 20 Mg PO BID Allergies: Coded Allergies: No Known Allergies (Verified , 09/24/16) Family History Parents healthy lived in 80s Siblings healthy Social History Denies EtOh use, tobacco use or illicit drug use Physical Exam Vital Signs Vital Signs Date Time Temp Pulse Resp B/P Pulse Ox O2 Delivery O2 Flow Rate FiO2 10/01/16 07:46 97.6 60 16 149/74 96 10/01/16 06:51 98.4 78 21 157/81 97 10/01/16 04:30 82 10/01/16 03:00 82 17 133/80 98 10/01/16 02:00 84 16 164/77 98 10/01/16 01:20 88 16 138/79 98 09/30/16 23:05 92 18 98 09/30/16 23:03 98.0 91 18 167/93 95 Physical Exam GENERAL: This is a well-nourished, well-developed patient, in no apparent distress. SKIN: No rashes, ecchymoses or lesions. Cool and dry. HEAD: Atraumatic. Normocephalic. No temporal or scalp tenderness. EYES: Pupils equal round and reactive. Extraocular motions intact. No scleral icterus. No injection or drainage. ENT: Nose without bleeding, purulent drainage or septal hematoma. Throat without erythema, tonsillar hypertrophy or exudate. Uvula midline. Airway patent. NECK: Trachea midline. No JVD or lymphadenopathy. Supple, nontender, no meningeal signs. CARDIOVASCULAR: Regular rate and rhythm without murmurs, gallops, or rubs. RESPIRATORY: Clear to auscultation. Breath sounds equal bilaterally. No wheezes , rales, or rhonchi. GASTROINTESTINAL: Abdomen soft, non-tender, nondistended. No hepato-splenomegaly , or palpable masses. No guarding. GENITOURINARY: Miller in place dak[place] color urine no hematuria. MUSCULOSKELETAL: Extremities without clubbing, cyanosis, or edema. No joint tenderness, effusion, or edema noted. No calf tenderness. Negative Homans sign bilaterally. NEUROLOGICAL: Awake and alert. Cranial nerves II through XII intact. Motor and sensory grossly within normal limits. Five out of 5 muscle strength in all muscle groups. Normal speech. Laboratory Laboratory Tests Test 09/30/16 10/01/16 10/01/16 10/01/16 23:05 01:15 02:00 03:50 Prothrombin Time 14.2 Prothromb Time International 1.3 Ratio Activated Partial 38.3 Thromboplast Time White Blood Count 11.1 Red Blood Count 3.99 Hemoglobin 11.8 Hematocrit 35.7 Mean Corpuscular Volume 89.5 Mean Corpuscular Hemoglobin 29.6 Mean Corpuscular Hemoglobin 33.1 Concent Red Cell Distribution Width 14.2 Platelet Count 254 Mean Platelet Volume 10.0 Neutrophils (%) (Auto) 91.5 Lymphocytes (%) (Auto) 4.1 Monocytes (%) (Auto) 4.0 Eosinophils (%) (Auto) 0.1 Basophils (%) (Auto) 0.3 Neutrophils # (Auto) 10.2 Lymphocytes # (Auto) 0.5 Monocytes # (Auto) 0.4 Eosinophils # (Auto) 0.0 Basophils # (Auto) 0.0 CBC Comment AUTO DIFF Differential Total Cells 100 Counted Neutrophils % (Manual) 59 Band Neutrophils % 15 Lymphocytes % 23 Monocytes % 1 Neutrophils # (Manual) 8.4 Metamyelocytes 2 Differential Comment FINAL DIFF MANUAL Toxic Granulation 1+ Toxic Vacuolation PRESENT Platelet Estimate NORMAL Platelet Morphology Comment NORMAL Red Cell Morphology Comment NORMAL Sodium Level 135 Potassium Level 4.4 Chloride Level 93 Carbon Dioxide Level 24.8 Anion Gap 17 Blood Urea Nitrogen 29 Creatinine 1.91 Estimat Glomerular Filtration 44 Rate Random Glucose 579 Calcium Level 9.6 Magnesium Level 2.5 Total Bilirubin 0.7 Aspartate Amino Transf 29 (AST/SGOT) Alanine Aminotransferase 16 (ALT/SGPT) Alkaline Phosphatase 99 Total Creatine Kinase 42 Troponin I LESS THAN 0.02 Total Protein 8.3 Albumin 2.8 Blood Gas Puncture Site PIV Blood Gas Patient Temperature 98.6 Venous Blood pH 7.34 Venous Blood Partial Pressure 36 CO2 Venous Blood Partial Pressure 34 O2 Venous Blood HCO3 19 Venous Blood Oxygen Saturation 44 Venous Blood Oxygen Content 6.6 Venous Blood Base Excess -5.6 Oxygen Delivery Device RA Blood Gas Inspired Oxygen 21 Urine Color LIGHT-YELLOW Urine Turbidity HAZY Urine pH 5.0 Urine Specific [place] 1.017 Urine Protein NEG Urine Glucose (UA) 1000 Urine Ketones 80 Urine Occult Blood LARGE Urine Nitrite POS Urine Bilirubin NEG Urine Urobilinogen LESS THAN 2.0 Urine Leukocyte Esterase MOD Urine RBC 11 Urine WBC 39 Urine Bacteria FEW Urine Mucus FEW Microscopic Urinalysis Comment CULTURE INDICATED Lactic Acid Level 0.9 Date/Time Procedure Status Source Growth 10/01/16 02:00 Urine Culture Received Urine Clean Catch Pending Result Diagram: 09/30/16230409/30/16 230 Assessment and Plan Assessment and Plan 56 yo male with: Syncope Hyperglycemia, uncontrolled DM UTI AFib rate controlled BPH HTN Monitor VS , keep normotensive, normoglycemic Check 2D ECHO. Check carotid US Check A1c Monitor on tele Neuro checks Restart home meds. Check INR, pharmacy consulted for INR level. Has chronic miller Accuchecks, ISS Check urine cultures. On IV abx Rocephin Antiemetics/laxatives as need. Pain meds per pain scale as need. DVT ppx scd/teds/on coumadin Code Status full code Discussed Condition With patient, nurse Sunita Lovell MD Oct 01, 2016 09:06
[2016-10-01] MEDS: METOPROLOL TARTRATE 25 MG TAB PO SCH (09:12)
[2016-10-01] MEDS: LISINOPRIL 20 MG TAB PO SCH ×2 (09:12→21:31)
[2016-10-01] MEDS: TAMSULOSIN HCL 0.4 MG CAP PO SCH ×2 (09:12→21:31)
[2016-10-01] MEDS: SODIUM CHLORIDE 0.9% FLUSH 5 ML FLUSH IV SCH ×2 (09:13→20:33)
[2016-10-01 10:16] LABS: HEMATOCRIT 33.4 % (39.0-51.0); HEMO FLAGS AUTO DIFF; MEAN CELL VOLUME 87.8 FL (80.0-100.0); MEAN CORPUSCULAR HEMOGLOBIN 29.2 PG (27.0-34.0); MEAN CORPUSCULAR HGB CONC 33.3 % (32.0-36.0); PLATELET COUNT 215 TH/MM3 (150-450); WHITE BLOOD COUNT 10.8 TH/MM3 (4.0-11.0)
[2016-10-01 10:27] LABS: BICARBONATE 24.3 MEQ/L (21.0-32.0); POTASSIUM 5.1 MEQ/L (3.5-5.1)
[2016-10-01 10:50] LABS: BANDS 3 % (0-6); NEUTROPHIL # MANUAL DIFF 10.3 TH/MM3 (1.8-7.7); POLYS (SEG NEUTROPHILS) 92 % (16-70); WBC DIFF SAMPLE 100
[2016-10-01 10:51] LABS: PLATELET ESTIMATE SMEAR NORMAL (NORMAL); PLATELET MORPHOLOGY NORMAL (NORMAL); SCAN/DIFF FINAL DIFF MANUAL
--- NOTE | 2016-10-01 11:13 | RADRPT ---
EXAM DATE/TIME: 10/01/2016 08:33 [place] COMPARISON: No previous studies available for comparison. INDICATIONS : Syncope. MEDICAL HISTORY : Hypertension. Benign prostatic hyperplasia, (BPH) Blind left eye. Vertigo. Afib. Diabetes. Anticoag ulant therapy. SURGICAL HISTORY : Prostatectomy. ENCOUNTER: Initial ACUITY: 1 day PAIN SCORE: 1/10 LOCATION: Bilateral neck PEAK SYSTOLIC VELOCITIES (cm/sec): ICA/CCA RATIO: Right: 0.7 Left: 1.1 ICA: Right: 97 Left: 88 CCA: Right: 134 Left: 81 ECA: Right: 81 Left: 86 VERTEBRAL: Right: 75 antegrade Left: 75 antegrade Elevated flow velocities and ICA/CCA ratios have been found to correlate with increased degrees of vessel stenosis, calculated as percentage of diameter relative to a normal segment of distal ICA/CCA FINDINGS: RIGHT CAROTID: No significant stenosis is visualized. The waveforms are within normal limits. LEFT CAROTID: Minimal noncalcified plaque is noted. No significant stenosis is visualized. The waveforms are withi n normal limits. VERTEBRAL ARTERIES: Antegrade flow is seen in both vertebral arteries. MISCELLANEOUS: None. CONCLUSION: Minimal noncalcified plaque left carotid bifurcation. Otherwise unremarkable exam; no evidence of hemodynamically significant stenosis. Antegrade flow in both vertebral arteries. Vinod Pelletier MD on October 01, 2016 at 10:58 Board Certified Radiologist. This report was verified electronically.
[2016-10-01 11:20] LABS: INTERNATIONAL NORMALIZED RATIO 1.2 RATIO; PROTHROMBIN TIME - PATIENT 13.8 SEC (9.8-11.6)
[2016-10-01] MEDS: ACETAMINOPHEN/HYDROcodone 325 MG/5 MG TAB PO PRN ×3 (12:01→20:32)
--- NOTE | 2016-10-01 14:59 | EKG ---
Date Performed: 10/01/2016 Time Performed: 00:07:33 PTAGE: 56 years EKG: Sinus rhythm MODERATE VOLTAGE CRITERIA FOR LVH, CONSIDER NORMAL VARIANT BORDERLINE ECG Compared to prior tracing no significant change PREVIOUS TRACING : 09/24/2016 12.23 DOCTOR: Mattie Drake Interpretating Date/Time 10/01/2016 14:52:14
[2016-10-01] MEDS ORDERED: WARFARIN SOD 4 MG TAB PO SCH (21:00)
[2016-10-01] MEDS ORDERED: INSULIN DETEMIR 100 UNITS/ML VIAL SQ SCH (21:00)
[2016-10-01] MEDS ORDERED: FINASTERIDE 5 MG TAB PO SCH (21:00)
[2016-10-01] MEDS ORDERED: MECLIZINE HCL 25 MG TAB PO ONE (21:15)
[2016-10-01 21:55] LABS: HEMOGLOBIN A1a 0.8 %; HEMOGLOBIN A1b 0.5 %; HEMOGLOBIN Ao 47.8 %; HEMOGLOBIN F 1.4 %; HEMOGLOBIN LA1C 2.5 %; HEMOGLOBIN P3 3.7 %
[2016-10-02] MEDS: SODIUM CHLOR 0.9% 1000 ML INJ 1,000 ML IV SCH
[2016-10-02] MEDS: ACETAMINOPHEN/HYDROcodone 325 MG/5 MG TAB PO PRN ×3 (00:18→14:59)
[2016-10-02 00:21] VITALS: BP 148/72; PULSE 89; RESP 20; TEMP 98.3; O2SAT 96
[2016-10-02] MEDS ORDERED: cefTRIAXone INJ 1,000 MG in SODIUM CHLORIDE 0.9% INJ 100 ML IV SCH (03:15)
[2016-10-02 03:47] VITALS: BP 142/76; PULSE 90; RESP 20; TEMP 98.4; O2SAT 97
[2016-10-02] MEDS: INSULIN ASPART SUPPLEMENTAL SCALE SQ SCH ×2 (06:04→11:00)
--- NOTE | 2016-10-02 07:39 | HHI.PR ---
Subjective Remarks Patient is in nad. Patient says he has pain and he thinks he has darker urine. Says he was supposed to see Dr Rene urology today. Will consult urology. He has no fever or chills. No n/v/d/c. No chest pain. Has vertigo at times. Objective Vitals Vital Signs Date Time Temp Pulse Resp B/P Pulse Ox O2 Delivery O2 Flow Rate FiO2 10/02/16 03:47 98.4 90 20 142/76 97 10/02/16 00:21 98.3 89 20 148/72 96 10/01/16 20:00 97 10/01/16 19:07 98.2 87 20 157/76 96 10/01/16 15:18 98.3 87 18 149/86 94 10/01/16 15:00 79 10/01/16 11:25 98.9 80 20 190/92 95 10/01/16 08:00 79 10/01/16 07:46 97.6 60 16 149/74 96 I/O 10/01/16 10/01/16 10/01/16 10/02/16 10/02/16 10/02/16 07:00 15:00 23:00 07:00 15:00 23:00 Intake Total 250 ml Output Total 900 ml 1450 ml 900 ml 775 ml Balance -650 ml -1450 ml -900 ml -775 ml Intake Oral 250 ml Output Urine Total 900 ml 1450 ml 900 ml 775 ml Result Diagram: 10/01/16 0910 10/01/16 0910 Imaging Last Impressions Carotid Artery Ultrasound 10/01/16 0000 Signed Impressions: Service Date/Time: Saturday, October 01, 2016 08:33 - CONCLUSION: Minimal noncalcified plaque left carotid bifurcation. Otherwise unremarkable exam; no evidence of hemodynamically significant stenosis. Antegrade flow in both vertebral arteries. Vinod Pelletier MD Head CT 09/30/16 2241 Signed Impressions: Service Date/Time: Saturday, October 01, 2016 00:36 - CONCLUSION: No acute intracranial findings. Minesh Rivas MD Lumbar Spine X-Ray 09/30/16 0000 Signed Impressions: Service Date/Time: Friday, September 30, 2016 23:07 - CONCLUSION: Mild bony degenerative findings. No evidence of fracture. Minesh Rivas MD Objective Remarks GENERAL: This is a well-nourished, well-developed patient, in no apparent distress. SKIN: No rashes, ecchymoses or lesions. Cool and dry. HEAD: Atraumatic. Normocephalic. No temporal or scalp tenderness. EYES: Pupils equal round and reactive. Extraocular motions intact. No scleral icterus. No injection or drainage. ENT: Nose without bleeding, purulent drainage or septal hematoma. Throat without erythema, tonsillar hypertrophy or exudate. Uvula midline. Airway patent. NECK: Trachea midline. No JVD or lymphadenopathy. Supple, nontender, no meningeal signs. CARDIOVASCULAR: Regular rate and rhythm without murmurs, gallops, or rubs. RESPIRATORY: Clear to auscultation. Breath sounds equal bilaterally. No wheezes , rales, or rhonchi. GASTROINTESTINAL: Abdomen soft, non-tender, nondistended. No hepato-splenomegaly , or palpable masses. No guarding. GENITOURINARY: Miller in place [place] color urine no hematuria. MUSCULOSKELETAL: Extremities without clubbing, cyanosis, or edema. No joint tenderness, effusion, or edema noted. No calf tenderness. Negative Homans sign bilaterally. NEUROLOGICAL: Awake and alert. Cranial nerves II through XII intact. Motor and sensory grossly within normal limits. Five out of 5 muscle strength in all muscle groups. Normal speech. A/P Assessment and Plan 56 yo male with: Syncope Hyperglycemia, uncontrolled DM insulin dependent A1c 8.1 UTI AFib rate controlled BPH follows with DrManoloomas will consult Dr Rene HTN Monitor VS , keep normotensive, normoglycemic Check 2D ECHO pending Carotid US reviewed without significant hemodynamically stenosis A1c 8.1 Monitor on tele Neuro checks Restart home meds. Check INR, pharmacy consulted for INR level. Has chronic miller Accuchecks, ISS Check urine cultures. On IV abx Rocephin Antiemetics/laxatives as need. Pain meds per pain scale as need. Consult Dr Rene appreciate recommendations. Seen by Dr Rene. Abdominal pain improved. Maintain Miller catheter and plan for a suprapubic prostatectomy as an outpatient. He will need to have a prostate needle biopsy first, and will need to hold his Coumadin for 1 week prior to this which will be done as an outpatient. Patient can be DC, to follow up as OP with PCP and consultants. DVT ppx scd/teds/on coumadin Code Status full code Discussed Condition With patient, nurse Sunita Lovell MD Oct 02, 2016 07:39
--- NOTE | 2016-10-02 07:41 | HHI.DCPOC ---
Discharge Care Plan Goals to Promote Your Health * To prevent worsening of your condition and complications * To maintain your health at the optimal level Directions to Meet Your Goals Take your medications as prescribed Follow your dietary instruction Follow activity as directed Keep your appointments as scheduled Take your immunizations and boosters as scheduled If your symptoms worsen call your PCP, if no PCP go to Urgent Care Center or Emergency Room Smoking is Dangerous to Your Health. Avoid second hand smoke Call the 24-hour hour crisis hotline for domestic abuse at Sunita Lovell MD Oct 02, 2016 07:41
[2016-10-02 07:43] LABS: INTERNATIONAL NORMALIZED RATIO 1.3 RATIO
[2016-10-02 07:44] LABS: AUTOMATED NEUTROPHIL # 8.2 TH/MM3 (1.8-7.7); BASOPHIL % 0.3 % (0.0-2.0); EOSINOPHIL # 0.1 TH/MM3 (0-0.4); EOSINOPHIL % 0.6 % (0.0-4.0); HEMATOCRIT 29.2 % (39.0-51.0); HEMO FLAGS DIFF FINAL; LYMPHOCYTE # 0.8 TH/MM3 (1.0-4.8); MEAN CELL VOLUME 87.9 FL (80.0-100.0); MEAN CORPUSCULAR HEMOGLOBIN 29.8 PG (27.0-34.0); MEAN CORPUSCULAR HGB CONC 33.9 % (32.0-36.0); MONO % 5.6 % (0.0-8.0); NEUT % 85.5 % (16.0-70.0); PLATELET COUNT 216 TH/MM3 (150-450); RED BLOOD COUNT 3.32 MIL/MM3 (4.50-5.90); RED CELL DISTRIBUTION WIDTH 13.7 % (11.6-17.2); WHITE BLOOD COUNT 9.6 TH/MM3 (4.0-11.0)
[2016-10-02 08:01] LABS: BICARBONATE 25.2 MEQ/L (21.0-32.0); POTASSIUM 3.7 MEQ/L (3.5-5.1)
[2016-10-02 08:25] VITALS: BP 145/83; PULSE 92; RESP 18; O2SAT 96
[2016-10-02] MEDS: METOPROLOL TARTRATE 25 MG TAB PO SCH (08:45)
[2016-10-02] MEDS: LISINOPRIL 20 MG TAB PO SCH (08:45)
[2016-10-02] MEDS: TAMSULOSIN HCL 0.4 MG CAP PO SCH (08:46)
[2016-10-02] MEDS: SODIUM CHLORIDE 0.9% FLUSH 5 ML FLUSH IV SCH (08:47)
--- NOTE | 2016-10-02 10:12 | HHI.FF ---
Face to Face Verification Diagnosis: (1) BPH (benign prostatic hyperplasia) (2) Hyperglycemia due to type 2 diabetes mellitus (3) Lower urinary tract obstruction (4) Prostatitis, acute (5) Syncope (6) Urinary tract infection Physical Therapy Order: Evaluate and Treat Home Health Nursing Order: Medical education Signs/symptoms of disease process Medication education-adverse effect Nursing assessment with vital signs I have seen patient Demarcus Cunha on 10/02/16. My clinical findings support the need for the requested home health care services because: Ltd mobility - disease progression Patient has SOB I certify that my clinical findings support that this patient is homebound because: Post-op weakness Unsteady gait/balance Sunita Lovell MD Oct 02, 2016 10:12
--- NOTE | 2016-10-02 11:20 | EC ---
Study Study Date:10/01/2016 STUDY CONCLUSIONS SUMMARY - Procedure narrative: Image quality was fair. Patient was tachycardiac through part of the exam, degrading some of the images. - Left ventricle: The cavity size was normal. Wall thickness was increased in a pattern of moderate LVH. There was concentric hypertrophy. Systolic function was normal. The estimated ejection fraction was in the range of 60% to 65%. Wall motion was normal; there were no regional wall motion abnormalities. - Right ventricle: The cavity size was mildly dilated. If LV function is below 40, please consider prescribing an ACEI or ARB or document rationale for non-use. PROCEDURE DATA STUDY STATUS: Elective. Procedure: Transthoracic echocardiography. Image quality was fair. Scanning was performed from the parasternal, apical, and subcostal acoustic windows. Study completion: The patient tolerated the procedure well. Transthoracic echocardiography. M-mode, complete 2D, complete spectral Doppler, and color Doppler. Height: Height: 73in. Weight: Weight: 189.6lb. Body mass index: BMI: 25.1kg/m^2. Body surface area: BSA: 2.11m^2. Patient status: Inpatient. CARDIAC ANATOMY LEFT VENTRICLE: The cavity size was normal. Wall thickness was increased in a pattern of moderate LVH. There was concentric hypertrophy. Systolic function was normal. The estimated ejection fraction was in the range of 60% to 65%. Wall motion was normal; there were no regional wall motion abnormalities. AORTIC VALVE: The valve appears to be grossly normal. Doppler: There was no stenosis. No significant regurgitation. Valve area: 3.77cm^2 (Vmax). Indexed valve area: 1.79cm^2/m^2 (Vmax). MITRAL VALVE: The valve appears to be grossly normal. Doppler: There was no evidence for stenosis. Trace regurgitation. Valve area by pressure half-time: 4.15cm^2. Indexed valve area by pressure half-time: 1.97cm^2/m^2. LEFT ATRIUM: The atrium was normal in size. RIGHT VENTRICLE: The cavity size was mildly dilated. PULMONIC VALVE: Not well visualized. TRICUSPID VALVE: The valve appears to be grossly normal. Doppler: There was no evidence for stenosis. Trace regurgitation. Peak gradient: 18mm Hg (D). PERICARDIUM: There was no pericardial effusion. Patient weight: 189.6lb _Ejection fraction:_ 65-75% _Fractional shortening:_ 32% up to 5Kg 5-11.5Kg 11.6-22.9Kg 23-45Kg 45-57Kg Aortic Root 7-13 <17 13-22 17-27 17-27 LA diam 6-13 <23 24-38 33-47 37-40 RVID 10-17 7-15 7-15 7-18 8-17 LVIDd 12-22 <32 24-38 33-47 37-40 LVPW 2-4 3-6 5-7 6-8 7-8 IVS 2-4 3-6 5-7 6-8 7-8 BASIC MEASUREMENTS ADULT NORMAL Left ventricle LV internal dimension, ED, chordal *39.4 mm 43-52 level, PLAX LV internal dimension, ES, chordal 27 mm 23-38 level, PLAX Fractional shortening, chordal level, 31 % >29 PLAX LV posterior wall thickness, ED 14.9 mm IVS/LVPW ratio, ED 0.98 <1.3 Volume, ED, MOD, 1-plane 100 ml Volume, ES, MOD, 1-plane 48 ml Ejection fraction, MOD, 1-plane 52 % Stroke volume, MOD, 1-plane 52 ml Volume index, ED, MOD, 1-plane 47 ml/m^2 Volume index, ES, MOD, 1-plane 23 ml/m^2 Stroke index, MOD, 1-plane 24.6 ml/m^2 Ventricular septum Septal thickness, ED 14.6 mm Aortic valve Leaflet separation 22 mm 15-26 Left atrium Anterior-posterior dimension 32 mm Anterior-posterior dimension index 1.52 cm/m^2 <2.2 BASIC MEASUREMENTS ADULT NORMAL Aortic valve Leaflet separation 22 mm 15-26 Aorta Root diameter, ED *38 mm 20-37 Left atrium Anterior-posterior dimension, ES 30 mm 19-40 Anterior-posterior dimension index, ES 1.42 cm/m^2 <2.2 LA/aortic root ratio 0.79 DOPPLER MEASUREMENTS ADULT NORMAL Aortic valve Peak velocity, S 117 cm/s Valve area, Vmax 3.77 cm^2 Valve area index, Vmax 1.79 cm^2/m^2 Mitral valve Peak E-wave velocity 55.4 cm/s Peak A-wave velocity 64.7 cm/s Pressure half-time 53 ms Peak E/A ratio 0.9 Valve area, pressure half-time 4.15 cm^2 Valve area index, pressure half-time 1.97 cm^2/m^2 Tricuspid valve Peak gradient, D 18 mm Hg Maximal inflow velocity 212 cm/s Systemic veins Estimated CVP 10 mm Hg LEGEND: Mean values are shown as u=mean value. Asterisk (*) loyd values outside specified normal range. Prepared and signed by Bob Portillo [id number]
--- NOTE | 2016-10-02 11:24 | HHI.FF ---
Face to Face Verification Diagnosis: (1) Syncope (2) Prostatitis, acute (3) Lower urinary tract obstruction (4) BPH (benign prostatic hyperplasia) (5) Hyperglycemia due to type 2 diabetes mellitus (6) Urinary tract infection Home Health Nursing Order: Medical education Signs/symptoms of disease process Medication education-adverse effect Nursing assessment with vital signs I have seen patient Demarcus Cunha on 10/02/16. My clinical findings support the need for the requested home health care services because: Ltd mobility - disease progression I certify that my clinical findings support that this patient is homebound because: Post-op weakness Sunita Lovell MD Oct 02, 2016 11:23
[2016-10-02] MEDS ORDERED: MECL-62 PO (11:28)
[2016-10-02 11:57] VITALS: BP 181/91; PULSE 97; RESP 20; TEMP 98.4; O2SAT 96
[2016-10-02] MEDS ORDERED: ENALAPRILAT 2.5 MG/2 ML VIAL IV PUSH PRN (12:45)
--- NOTE | 2016-10-02 13:37 | PD.CONS ---
[facility] Service Urology Consult Requested By Primary Care Physician No Primary Care Physician Diagnosis: History of Present Illness 56-year-old male admitted with right sided abdominal pain and flank pain. He also was experiencing dizziness and fell and sustained a laceration to his occipital lobe region. He is well-known to the urology service. His history dates back to a few months ago when he was seen in the office and was in urinary retention. His initially admitted to [facility] and due to insurance reasons was sent to [place]. He had some gross hematuria and was diagnosed with atrial fibrillation and needed to be started on Coumadin. He's had repeated bouts of urinary retention and failed medical therapy. He needs to undergo a suprapubic prostatectomy. However, his PSA has been elevated in the 5 range and is in need of undergoing a prostate needle biopsy but was recently diagnosed with prostatitis. He has been complaining of some syncopal episodes and was seen in the office last week and was sent to the emergency room for evaluation. He recently had a carotid ultrasound which did not show any significant obstruction and his head CT was negative. He does have a history of vertigo. He will need to be cleared from the cardiac standpoint prior to proceeding with any procedures in the near future. Presently he denies any fever or chills or nausea or vomiting. Review of Systems Constitutional: DENIES: Diaphoretic episodes Endocrine: DENIES: Heat/cold intolerance Eyes: COMPLAINS OF: Vision loss Ears, nose, mouth, throat: DENIES: Tinnitus Respiratory: DENIES: Apneas Cardiovascular: DENIES: Chest pain Gastrointestinal: COMPLAINS OF: Abdominal pain Musculoskeletal: DENIES: Joint pain Integumentary: DENIES: Abnormal pigmentation Hematologic/lymphatic: DENIES: Bruising Immunologic/allergic: DENIES: Eczema Neurologic: DENIES: Abnormal gait Psychiatric: DENIES: Anxiety Past Family Social History Past Medical History Atrial fibrillation BPH with obstruction and urinary retention Vertigo Diabetes Past Surgical History Cystoscopy Allergies: Coded Allergies: No Known Allergies (Verified , 09/24/16) Family History Denies any family history of prostate cancer Social History Denies smoking or drinking at present. Physical Exam Vital Signs Vital Signs Date Time Temp Pulse Resp B/P Pulse Ox O2 Delivery O2 Flow Rate FiO2 10/02/16 11:57 98.4 97 20 181/91 96 10/02/16 08:25 92 18 145/83 96 10/02/16 03:47 98.4 90 20 142/76 97 10/02/16 00:21 98.3 89 20 148/72 96 10/01/16 20:00 97 10/01/16 19:07 98.2 87 20 157/76 96 10/01/16 15:18 98.3 87 18 149/86 94 10/01/16 15:00 79 Physical Exam GENERAL: This is a well-nourished, well-developed patient, in no apparent distress. SKIN: No rashes, ecchymoses or lesions. Cool and dry. HEAD: Atraumatic. Normocephalic. No temporal or scalp tenderness. EYES: Pupils equal round and reactive. Extraocular motions intact. No scleral icterus. No injection or drainage. Blind in left eye. ENT: Nose without bleeding, purulent drainage or septal hematoma. Throat without erythema, tonsillar hypertrophy or exudate. Uvula midline. Airway patent. NECK: Trachea midline. No JVD or lymphadenopathy. Supple, nontender, no meningeal signs. CARDIOVASCULAR: Regular rate and rhythm without murmurs, gallops, or rubs. RESPIRATORY: Clear to auscultation. Breath sounds equal bilaterally. No wheezes , rales, or rhonchi. GASTROINTESTINAL: Abdomen soft, mild RLQ tenderness, nondistended. No hepato- splenomegaly, or palpable masses. No guarding. GENITOURINARY: Stratton catheter presently in place draining dakota urine. Testes descended nontender MUSCULOSKELETAL: Extremities without clubbing, cyanosis, or edema. No joint tenderness, effusion, or edema noted. No calf tenderness. Negative Homans sign bilaterally. NEUROLOGICAL: Awake and alert. Cranial nerves II through XII intact. Motor and sensory grossly within normal limits. Five out of 5 muscle strength in all muscle groups. Normal speech. Laboratory Laboratory Tests Test 10/02/16 10/02/16 06:00 06:55 Prothrombin Time 14.0 Prothromb Time International 1.3 Ratio White Blood Count 9.6 Red Blood Count 3.32 Hemoglobin 9.9 Hematocrit 29.2 Mean Corpuscular Volume 87.9 Mean Corpuscular Hemoglobin 29.8 Mean Corpuscular Hemoglobin 33.9 Concent Red Cell Distribution Width 13.7 Platelet Count 216 Mean Platelet Volume 9.5 Neutrophils (%) (Auto) 85.5 Lymphocytes (%) (Auto) 8.0 Monocytes (%) (Auto) 5.6 Eosinophils (%) (Auto) 0.6 Basophils (%) (Auto) 0.3 Neutrophils # (Auto) 8.2 Lymphocytes # (Auto) 0.8 Monocytes # (Auto) 0.5 Eosinophils # (Auto) 0.1 Basophils # (Auto) 0.0 CBC Comment DIFF FINAL Differential Comment Sodium Level 143 Potassium Level 3.7 Chloride Level 108 Carbon Dioxide Level 25.2 Anion Gap 10 Blood Urea Nitrogen 16 Creatinine 1.18 Estimat Glomerular Filtration 77 Rate Random Glucose 186 Calcium Level 8.9 Date/Time Procedure Status Source Growth 10/01/16 02:00 Urine Culture - Preliminary Resulted Urine Clean Catch Gram Negative Valentin Result Diagram: 10/02/16 0655 10/02/16 0655 Assessment and Plan Assessment and Plan 56-year-old male with history of BPH with obstruction, urinary retention, elevated PSA, with abdominal pain and recent syncopal episodes. Abdominal pain improving at present time. We'll need to maintain the Stratton catheter and we'll plan for a suprapubic prostatectomy as an outpatient. He will need to undergo medical clearance prior to this procedure given his recent syncopal episodes and other comorbidities. He will need to have a prostate needle biopsy first, and will need to hold his Coumadin for 1 week prior to this which will be done as an outpatient. We will follow with you and thank you for the consult. Tanner Rene DO Oct 02, 2016 13:37
[2016-10-02] MEDS ORDERED: MECLIZINE HCL 25 MG TAB PO SCH (14:00)
--- NOTE | 2016-10-02 19:32 | HHI.DS ---
Discharge Summary Admission Date Oct 01, 2016 at 02:06 Discharge Date: Oct 02, 2016 Admitting Diagnosis hyperglycemia, syncope (1) Syncope ICD Code: R55 Diagnosis: Principal (2) Urinary tract infection ICD Code: N39.0 Diagnosis: Secondary (3) Prostatitis, acute ICD Code: N41.0 Diagnosis: Secondary (4) Lower urinary tract obstruction ICD Code: N13.9 Diagnosis: Secondary (5) BPH (benign prostatic hyperplasia) ICD Code: N40.0 Diagnosis: Principal (6) Hyperglycemia due to type 2 diabetes mellitus ICD Code: E11.65 Diagnosis: Principal Procedures none Brief History - From Admission 56-year-old male with history of atrial fibrillation on Coumadin, left eye blindness, DM, BPH, HTN, currently being treated for prostatitis on Levaquin. He presents via EMS for evaluation of syncopal episode. He also says he has a h /o vertigo, and he reports dizziness/lightheadedness. Says he might think is related to meds. However he had this symptoms prior having started meds. The patient currently has a Miller catheter in place. Says prior to arrival he was emptying the Miller catheter when he became dizzy and passed out and landed on the ground. He woke up on the ground. He is complaining of an occipital headache where he hit his head. He has a tiny laceration there. He is complaining of some lower back pain as well. He is currently experiencing dizziness which he describes as a room spinning sensation. He denies any chest pain, shortness of breath, palpitations, nausea or vomiting, neck pain, numbness or tingling or weakness in extremities. Blood sugar was read as "high " according to EMS. He has a history of diabetes, he does not remember if he took his insulin. Denies chest pain, diaphoresis, nausea. Says he feel his heart racing at times. Says he follows with Dr Rene urology, however he missed the follow up appointment. No fever or chills. No other complaints. CBC/BMP: 10/02/16 0655 10/02/16 0655 Significant Findings Laboratory Tests Test 09/30/16 10/01/16 10/01/16 10/01/16 23:05 01:15 02:00 09:10 Prothrombin Time 14.2 SEC (9.8-11.6) Activated Partial 38.3 SEC Thromboplast Time (24.3-30.1) White Blood Count 11.1 TH/MM3 (4.0-11.0) Red Blood Count 3.99 MIL/MM3 3.80 MIL/MM3 (4.50-5.90) (4.50-5.90) Hemoglobin 11.8 GM/DL 11.1 GM/DL (13.0-17.0) (13.0-17.0) Hematocrit 35.7 % 33.4 % (39.0-51.0) (39.0-51.0) Neutrophils (%) (Auto) 91.5 % (16.0-70.0) Lymphocytes (%) (Auto) 4.1 % (9.0-44.0) Neutrophils # (Auto) 10.2 TH/MM3 (1.8-7.7) Lymphocytes # (Auto) 0.5 TH/MM3 (1.0-4.8) Band Neutrophils % 15 % (0-6) Neutrophils # (Manual) 8.4 TH/MM3 10.3 TH/MM3 (1.8-7.7) (1.8-7.7) Metamyelocytes 2 % (0-1) Toxic Granulation 1+ (NORMAL) Toxic Vacuolation PRESENT (NONE SEEN) Sodium Level 135 MEQ/L (136-145) Chloride Level 93 MEQ/L (98-107) Anion Gap 17 MEQ/L (5-15) Blood Urea Nitrogen 29 MG/DL (7-18) 27 MG/DL (7-18) Creatinine 1.91 MG/DL 1.57 MG/DL (0.60-1.30) (0.60-1.30) Estimat Glomerular Filtration 44 ML/MIN (>89) 55 ML/MIN (>89) Rate Random Glucose 579 MG/DL 388 MG/DL (74-106) (74-106) Troponin I LESS THAN 0.02 NG/ML (0.02-0.05) Total Protein 8.3 GM/DL (6.4-8.2) Albumin 2.8 GM/DL (3.4-5.0) Venous Blood pH 7.34 (7.360-7.400) Venous Blood Partial Pressure 36 mmHg (44-48) CO2 Venous Blood Partial Pressure 34 mmHg (35-40) O2 Venous Blood HCO3 19 mmol/L (22-26) Venous Blood Oxygen Saturation 44 % (70-76) Venous Blood Oxygen Content 6.6 Vol % (9.0-17.0) Venous Blood Base Excess -5.6 mmol/L (-2-2) Urine Turbidity HAZY (CLEAR) Urine Glucose (UA) 1000 mg/dL (NEG) Urine Ketones 80 mg/dL (NEG) Urine Occult Blood LARGE (NEG) Urine Nitrite POS (NEG) Urine Leukocyte Esterase MOD (NEG) Urine RBC 11 /hpf (0-3) Urine WBC 39 /hpf (0-5) Urine Bacteria FEW /hpf (NONE) Urine Mucus FEW /lpf (OCC) Neutrophils % (Manual) 92 % (16-70) Lymphocytes % 4 % (9-44) Hemoglobin A1c 8.1 % (4.3-6.0) Test 10/01/16 10/02/16 10/02/16 10/02/16 10:58 06:00 06:55 14:04 Prothrombin Time 13.8 SEC 14.0 SEC (9.8-11.6) (9.8-11.6) Red Blood Count 3.32 MIL/MM3 (4.50-5.90) Hemoglobin 9.9 GM/DL (13.0-17.0) Hematocrit 29.2 % (39.0-51.0) Neutrophils (%) (Auto) 85.5 % (16.0-70.0) Lymphocytes (%) (Auto) 8.0 % (9.0-44.0) Neutrophils # (Auto) 8.2 TH/MM3 (1.8-7.7) Lymphocytes # (Auto) 0.8 TH/MM3 (1.0-4.8) Chloride Level 108 MEQ/L (98-107) Estimat Glomerular Filtration 77 ML/MIN (>89) Rate Random Glucose 186 MG/DL (74-106) Prostate Specific Antigen 6.30 NG/ML (0.00-4.00) Imaging Last Impressions Carotid Artery Ultrasound 10/01/16 0000 Signed Impressions: Service Date/Time: Saturday, October 01, 2016 08:33 - CONCLUSION: Minimal noncalcified plaque left carotid bifurcation. Otherwise unremarkable exam; no evidence of hemodynamically significant stenosis. Antegrade flow in both vertebral arteries. Vinod Pelletier MD Head CT 09/30/16 2241 Signed Impressions: Service Date/Time: Saturday, October 01, 2016 00:36 - CONCLUSION: No acute intracranial findings. Minesh Rivas MD Lumbar Spine X-Ray 09/30/16 0000 Signed Impressions: Service Date/Time: Friday, September 30, 2016 23:07 - CONCLUSION: Mild bony degenerative findings. No evidence of fracture. Minesh Rivas MD PE at Discharge GENERAL: This is a well-nourished, well-developed patient, in no apparent distress. SKIN: No rashes, ecchymoses or lesions. Cool and dry. HEAD: Atraumatic. Normocephalic. No temporal or scalp tenderness. EYES: Pupils equal round and reactive. Extraocular motions intact. No scleral icterus. No injection or drainage. ENT: Nose without bleeding, purulent drainage or septal hematoma. Throat without erythema, tonsillar hypertrophy or exudate. Uvula midline. Airway patent. NECK: Trachea midline. No JVD or lymphadenopathy. Supple, nontender, no meningeal signs. CARDIOVASCULAR: Regular rate and rhythm without murmurs, gallops, or rubs. RESPIRATORY: Clear to auscultation. Breath sounds equal bilaterally. No wheezes , rales, or rhonchi. GASTROINTESTINAL: Abdomen soft, non-tender, nondistended. No hepato-splenomegaly , or palpable masses. No guarding. GENITOURINARY: Miller in place dakota color urine no hematuria. MUSCULOSKELETAL: Extremities without clubbing, cyanosis, or edema. No joint tenderness, effusion, or edema noted. No calf tenderness. Negative Homans sign bilaterally. NEUROLOGICAL: Awake and alert. Cranial nerves II through XII intact. Motor and sensory grossly within normal limits. Five out of 5 muscle strength in all muscle groups. Normal speech. Hospital Course 56 yo male with: Syncope Hyperglycemia, uncontrolled DM insulin dependent A1c 8.1 UTI AFib rate controlled BPH follows with Dr Rene will consult Dr Rene HTN Monitor VS , keep normotensive, normoglycemic Check 2D ECHO pending Carotid US reviewed without significant hemodynamically stenosis A1c 8.1 Monitor on tele Neuro checks Restart home meds. Check INR, pharmacy consulted for INR level. Increase metoprolol at 50 mg po bid as high BP and HR in 90s Has chronic miller Accuchecks, ISS Check urine cultures. On IV abx Rocephin Antiemetics/laxatives as need. Pain meds per pain scale as need. Consult Dr Rene appreciate recommendations. Seen by Dr Rene. Abdominal pain improved. Maintain Miller catheter and plan for a suprapubic prostatectomy as an outpatient. He will need to have a prostate needle biopsy first, and will need to hold his Coumadin for 1 week prior to this which will be done as an outpatient. Improved. Patient can be DC, to follow up as OP with PCP and consultants as OP. Pt Condition on Discharge: Stable Discharge Disposition: Disch w/ Home Health Serv Discharge Time: > 30 minutes Discharge Instructions DIET: Follow Instructions for: Heart Healthy Diet, Diabetic Diet Activities you can perform: Regular-No Restrictions Follow up Referrals: PCP Follow-up - 3-5 Days Urology - 1 Week New Medications: Meclizine (Meclizine) 25 Mg Tab 25 MG PO TID PRN VERTIGO #60 Ref 0 TAB Metoprolol Tartrate (Metoprolol Tartrate) 50 Mg Tab 50 MG PO BID Blood Pressure Management #60 Ref 0 TAB Continued Medications: Finasteride (Proscar) 5 Mg Tab 5 MG PO HS Do not crush. Manage Prostate Problems #30 Ref 0 TAB Insulin Detemir Inj (Levemir Inj) 1,000 unit/ 10 ML Vial 10 UNITS SQ HS Do not mix with any other Insulin. Blood Sugar Management Ref 0 VIAL Insulin Lispro (Human) Inj (Humalog Inj) 1,000 Unit/10 Ml Vial 10 UNITS SQ BIDAC Blood Sugar Management #1 Ref 0 VIAL Levofloxacin (Levaquin) 500 Mg Tab 500 MG PO DAILY Infection #10 TAB Lisinopril (Lisinopril) 20 Mg Tab 20 MG PO BID #30 Ref 0 TAB Tamsulosin (Tamsulosin) 0.4 Mg Cap 0.4 MG PO BID Manage Prostate Problems #90 Ref 2 CAP Tramadol (Tramadol) 50 Mg Tab 50 MG PO Q6H PRN PAIN #20 TAB Warfarin (Warfarin) 4 Mg Tab 8 MG PO HS Blood Clot Prevention #30 Ref 0 TAB Discontinued Medications: Ciprofloxacin (Ciprofloxacin) 500 Mg Tab 500 MG PO BID Infection #6 Ref 0 TAB Sunita Lovell MD Oct 02, 2016 19:32
[2016-10-02] MEDS ORDERED: METO50TA PO (19:33)
[2016-10-03] MEDS ORDERED: METOPROLOL TARTRATE 50 MG TAB PO SCH (09:00)
[2016-10-04] MEDS ORDERED: METO25TA3 PO (16:13)
[2016-10-04] MEDS ORDERED: NOVORP2 SQ (16:26)
[2016-10-04] MEDS ORDERED: LEVEMIR SQ (17:02)
[2016-10-08] MEDS ORDERED: NOVORP2 SQ (12:23)
[2016-10-08] MEDS ORDERED: HUMALOG SQ (12:44)
[2016-10-11] MEDS ORDERED: [UNRECOGNIZED DRUG - CODE] TOP (12:32)
[2016-10-11] MEDS ORDERED: [UNRECOGNIZED DRUG - CODE] (12:32)
[2016-10-15 06:58] LABS: STAT NO
[2016-10-23] MEDS ORDERED: ONETKIT11 (10:49)
[2016-10-23] MEDS ORDERED: ONETTES4 (10:49)
[2016-10-23] MEDS ORDERED: ONETMIS8 (10:49)
[2016-11-08] MEDS ORDERED: NOVORP2 SQ (12:44)
[2016-12-14] MEDS ORDERED: MECL-62 PO (16:31)
[2017-01-03] MEDS ORDERED: HUMALOG SQ (08:34)
== END 2016-10-02 15:50 | disposition home or self-care (01) ==
LOC: NEPC 22:30 → NEDH 10-01 02:06 → INTOOBSV 10-01 02:06 → NEPHCDU 10-01 04:38
PROVIDERS: ADMIT Hospitalist; ATTEND Hospitalist
DX: R55 Syncope and collapse (principal); N41.9 Inflammatory disease of prostate, unspecified; I48.91 Unspecified atrial fibrillation; Z79.01 Long term (current) use of anticoagulants; H54.42 Blindness, left eye, normal vision right eye; R42 Dizziness and giddiness; R51 Headache; M54.5 Low back pain; S01.01XA Laceration without foreign body of scalp, initial encounter; E11.65 Type 2 diabetes mellitus with hyperglycemia; Z79.4 Long term (current) use of insulin; N39.0 Urinary tract infection, site not specified; I10 Essential (primary) hypertension; W01.198A Fall on same level from slipping, tripping and stumbling with subsequent striking against other object, initial encounter; N13.8 Other obstructive and reflux uropathy; N40.1 Benign prostatic hyperplasia with lower urinary tract symptoms; R10.9 Unspecified abdominal pain; R97.20 Elevated prostate specific antigen [PSA]; B96.20 Unspecified Escherichia coli [E. coli] as the cause of diseases classified elsewhere
CPT/HCPCS: 12001; 70450; 72100; 80048; 80053; 81001; 82550; 82805; 82948; 83036; 83605; 83735; 84153; 84484; 85007; 85025; 85027; 85610; 85730; 87077; 87086; 87186; 93005; 93306; 93880; 96374; 96375; 99285; G0378; J0696; J1815; J2405; J7030

== ENCOUNTER 2016-11-16 21:46 | Emergency (ER) | payer MEDICAID ==
[~2016-11-16] VITALS: Ht 185.4 cm; Wt 80.0 kg
[~2016-11-16 21:46] MED LIST changes: -MACR100C2 PO; -PERI8.6T PO; -WALKER WHEELS/F1 MIS
[2016-11-16 21:48] VITALS: BP 147/92; PULSE 70; RESP 15; TEMP 98.5; O2SAT 99
--- NOTE | 2016-11-16 22:52 | PD ---
Physical Exam Date Seen by Provider: Nov 16, 2016 Time Seen by Provider: 22:50 Narrative 56 yo male that presents to the ED for evaluation of urinary cathether. Patient states that he is "peeing on himself". per patient cathether still in place. Unclear if it is leaking. No injuries. no pain. Vitals sign stable. Patient awaiting bed placement. Data Data Last Documented VS Vital Signs Date Time Temp Pulse Resp B/P Pulse Ox O2 Delivery O2 Flow Rate FiO2 11/16/16 21:48 98.5 70 15 147/92 99 Room Air [facility] Medical Record Reviewed: Yes Supervised Visit with YAIR: No Nicho Quintero Nov 16, 2016 22:52
--- NOTE | 2016-11-16 23:50 | PD ---
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 Reports that he has a Miller catheter as his history of BPH, reports that his urologist will be performing surgery on his prostate seen. Patient reports that he needs his Miller catheter changed because of this leaking. Patient with no abdominal pain, no nausea or vomiting. Patient with no other complaints. PFSH Past Medical History Hx Anticoagulant Therapy: Yes Atrial Fibrillation: Yes Cardiovascular Problems: No Diabetes: Yes Patient Takes Glucophage: No Diminished Hearing: No Genitourinary: No Musculoskeletal: No Neurologic: Yes (VERTIGO) Reproductive: No Respiratory: No Past Surgical History Prostatectomy: Yes Other Surgery: No Social History Alcohol Use: Yes (OCCASIONALLY) Tobacco Use: No Substance Use: No Allergies-Medications (Allergen,Severity, Reaction): Coded Allergies: No Known Allergies (Verified , 11/16/16) Reported Meds & Prescriptions Reported Meds & Active Scripts Active Onetouch Ultralink System W/Device (Blood Glucose Monitoring Suppl) 1 Kit Kit Kit Please provide glucometer to patient. Onetouch Ultrasoft Lancet (Lancets) 1 Mis Mis Box .ROUTE QID Onetouch Ultra Test Strips (Blood Glucose Test Strips) 1 Keisha Keisha 1 Strip .ROUTE QID Easy Touch Safety Syringe 25G X 5/8" 1 ml 1 Mis Mis 1 Box .ROUTE DIRECTED Humalog Inj (Insulin Human Lispro) 1,000 Unit/10 Ml Vial 20 Units SQ BIDAC Levemir Inj (Insulin Detemir) 1,000 unit/ 10 ML Vial 10 Units SQ HS Do not mix with any other Insulin. Meclizine (Meclizine HCl) 25 Mg Tab 25 Mg PO TID PRN Tramadol (Tramadol HCl) 50 Mg Tab 50 Mg PO Q6H PRN Tamsulosin (Tamsulosin HCl) 0.4 Mg Cap 0.4 Mg PO BID Reported Metoprolol Tartrate 25 Mg Tab 25 Mg PO DAILY Warfarin 4 Mg Tab 8 Mg PO HS Proscar (Finasteride) 5 Mg Tab 5 Mg PO HS Do not crush. Levemir Inj (Insulin Detemir) 1,000 unit/ 10 ML Vial 10 Units SQ HS Do not mix with any other Insulin. Lisinopril 20 Mg Tab 20 Mg PO HS Review of Systems General / Constitutional: No: Fever Eyes: No: Visual changes HENT: No: Headaches Cardiovascular: No: Chest Pain or Discomfort Respiratory: No: Shortness of Breath Gastrointestinal: No: Abdominal Pain Genitourinary: No: Dysuria Musculoskeletal: No: Pain Skin: No Rash Neurologic: No: Weakness Psychiatric: No: Depression Endocrine: No: Polydipsia Hematologic/Lymphatic: No: Easy Bruising Physical Exam Narrative GENERAL: nad, nontoxic SKIN: Focused skin assessment warm/dry. HEAD: Atraumatic. Normocephalic. EYES: Pupils equal and round. No scleral icterus. No injection or drainage. ENT: No nasal bleeding or discharge. Mucous membranes pink and moist. NECK: Trachea midline. No JVD. CARDIOVASCULAR: Regular rate and rhythm. No murmur appreciated. RESPIRATORY: No accessory muscle use. Clear to auscultation. Breath sounds equal bilaterally. GASTROINTESTINAL: Abdomen soft, non-tender, nondistended. Hepatic and splenic margins not palpable. FC in place - patient with urine draining around your miller catheter MUSCULOSKELETAL: No obvious deformities. No clubbing. No cyanosis. No edema. NEUROLOGICAL: Awake and alert. No obvious cranial nerve deficits. Motor grossly within normal limits. Normal speech. PSYCHIATRIC: Appropriate mood and affect; insight and judgment normal. Data Data Last Documented VS Vital Signs Date Time Temp Pulse Resp B/P Pulse Ox O2 Delivery O2 Flow Rate FiO2 11/16/16 21:48 98.5 70 15 147/92 99 Room Air Orders Replace Miller (11/16/16 23:18) [facility] Medical Decision Making Medical Screen Exam Complete: Yes Emergency Medical Condition: Yes Interpretation(s) Vital Signs Date Time Temp Pulse Resp B/P Pulse Ox O2 Delivery O2 Flow Rate FiO2 11/16/16 21:48 98.5 70 15 147/92 99 Room Air Differential Diagnosis urinary retention, bph Narrative Course 56 year old male who presents to ER for miller catheter change. Patient reports that he has leaking around his miller catheter and needs his fc changed. Patient's miller catheter was replaced without difficultly. Patient will follow up with your urologist and will return to ER as needed Diagnosis Primary Impression: Encounter for Miller catheter fitting and adjustment Patient Instructions: General Instructions Additional Instructions: please follow up with your urologist and return to ER as needed Disposition: 01 DISCHARGE HOME Condition: Chinyere Hendricks DO Nov 16, 2016 23:50
[2016-11-17 00:26] VITALS: BP 142/88
[2016-12-14] MEDS ORDERED: MECL-62 PO (16:31)
[2017-01-03] MEDS ORDERED: HUMALOG SQ (08:34)
== END 2016-11-17 01:52 | disposition home or self-care (01) ==
LOC: NEPD 21:46
DX: T83.031A Leakage of indwelling urethral catheter, initial encounter (principal)
CPT/HCPCS: 51702

== ENCOUNTER → 2016-11-16 | Outpatient (CLI) | payer MEDICAID ==
[~2016-11-16] MED LIST changes: -CIPR500T2 PO; -LEVA500T PO; +MACR100C2 PO; +MECL-62 PO; +ONETKIT11; +ONETMIS8; +ONETTES4; +PERI8.6T PO; +WALKER WHEELS/F1 MIS; +[UNRECOGNIZED DRUG - CODE]
--- NOTE | 2016-11-16 14:55 | RADRPT ---
EXAM DATE/TIME: 11/16/2016 14:37 [facility] COMPARISON: No previous studies available for comparison. INDICATIONS : Evaluate for pneumonia, pneumothorax, or communicable disease. Pre-op prostate. MEDICAL HISTORY : Hypertension. A-fib. SURGICAL HISTORY : None. ENCOUNTER: Initial ACUITY: 1 day PAIN SCORE: 0/10 LOCATION: Bilateral chest FINDINGS: PA and lateral views of the chest demonstrate the lungs to be symmetrically, but hyper aerated withou t evidence of mass, infiltrate or effusion. The cardiomediastinal contours are unremarkable. Osseou s structures are intact. CONCLUSION: Hyperinflation with no acute cardiopulmonary process. Pedro Luis Neely MD on November 16, 2016 at 14:52 Board Certified Radiologist. This report was verified electronically.
--- NOTE | 2016-11-17 19:25 | EKG ---
Date Performed: 11/16/2016 Time Performed: 15:05:32 PTAGE: 56 years EKG: Sinus rhythm WITH FREQUENT SUPRAVENTRICULAR PREMATURE COMPLEXES VOLTAGE CRITERIA FOR LVH ABNORMAL ECG PREVIOUS TRACING : 10/01/2016 00.07 Compared to the previous tracing PACs present DOCTOR: Alex Mcdaniel Interpretating Date/Time 11/17/2016 19:24:25
== END ==
LOC: HCAV 14:03
PROVIDERS: ATTEND Family Medicine
DX: N40.0 Benign prostatic hyperplasia without lower urinary tract symptoms (principal); R94.31 Abnormal electrocardiogram [ECG] [EKG]
CPT/HCPCS: 71020; 93005

== ENCOUNTER 2016-12-07 18:17 | Emergency (ER) | payer MEDICAID ==
[~2016-12-07] VITALS: Ht 185.4 cm; Wt 80.5 kg
[~2016-12-07 18:17] MED LIST changes: -TRAM50TA PO
[2016-12-07 18:19] VITALS: BP 133/82; PULSE 98; RESP 13; TEMP 99.9; O2SAT 98
--- NOTE | 2016-12-07 20:14 | PD ---
HPI Chief Complaint: Complaint Time Seen by Provider: 20:04 Travel History International Travel<30 days: No Contact w/Intl Traveler<30days: No Traveled to known affect area: No History of Present Illness HPI The chin is a 56-year-old after [place] male who presents emergency department for Stratton catheter exchange. The patient has a history of enlarged prostate, scheduled to undergo surgery next week by his urologist, Dr. Rene. The patient states he now has low back pain and mild drainage from around the Stratton catheter site at the meatus. He also complains of mild suprapubic discomfort. The patient does have a history of previous prostatitis. He denies any fever, chills, sweats, nausea, or vomiting. Symptoms are moderate, there are no alleviating or exacerbating factors. The patient is requesting Stratton catheter exchange secondary to his current symptoms. He does continue to make yellow colored urine which is slightly cloudy. PFSH Past Medical History Hx Anticoagulant Therapy: Yes Atrial Fibrillation: Yes Cardiovascular Problems: No Diabetes: Yes Diminished Hearing: No Genitourinary: No Musculoskeletal: No Neurologic: Yes (VERTIGO) Reproductive: No Respiratory: No Past Surgical History Prostatectomy: Yes Other Surgery: No Social History Alcohol Use: Yes (OCCASIONALLY) Tobacco Use: No Substance Use: No Allergies-Medications (Allergen,Severity, Reaction): Coded Allergies: No Known Allergies (Verified , 11/22/16) Reported Meds & Prescriptions Reported Meds & Active Scripts Active Onetouch Ultralink System W/Device (Blood Glucose Monitoring Suppl) 1 Kit Kit Kit Please provide glucometer to patient. Onetouch Ultrasoft Lancet (Lancets) 1 Mis Mis Box .ROUTE QID Onetouch Ultra Test Strips (Blood Glucose Test Strips) 1 Keisha Keisha 1 Strip .ROUTE QID Easy Touch Safety Syringe 25G X 5/8" 1 ml 1 Mis Mis 1 Box .ROUTE DIRECTED Humalog Inj (Insulin Human Lispro) 1,000 Unit/10 Ml Vial 20 Units SQ BIDAC Levemir Inj (Insulin Detemir) 1,000 unit/ 10 ML Vial 10 Units SQ HS Do not mix with any other Insulin. Meclizine (Meclizine HCl) 25 Mg Tab 25 Mg PO TID PRN Tamsulosin (Tamsulosin HCl) 0.4 Mg Cap 0.4 Mg PO BID Reported Metoprolol Tartrate 25 Mg Tab 25 Mg PO DAILY Warfarin 4 Mg Tab 8 Mg PO HS Proscar (Finasteride) 5 Mg Tab 5 Mg PO HS Do not crush. Levemir Inj (Insulin Detemir) 1,000 unit/ 10 ML Vial 10 Units SQ HS Do not mix with any other Insulin. Lisinopril 20 Mg Tab 20 Mg PO HS Review of Systems Except as stated in HPI: all other systems reviewed are Neg General / Constitutional: No: Fever, Chills Cardiovascular: No: Chest Pain or Discomfort Respiratory: No: Shortness of Breath Gastrointestinal: No: Nausea, Vomiting, Diarrhea, Abdominal Pain Genitourinary: Positive: Pelvic Pain, Other (as noted any history of present illness), No: Dysuria Physical Exam Narrative GENERAL: Awake, alert, pleasant 56-year-old male who appears his stated age and is in no acute respiratory distress. SKIN: Focused skin assessment warm/dry. HEAD: Atraumatic. Normocephalic. NECK: Trachea midline. No JVD. CARDIOVASCULAR: Regular rate and rhythm. No murmur appreciated. RESPIRATORY: No accessory muscle use. Clear to auscultation. Breath sounds equal bilaterally. GASTROINTESTINAL: Abdomen soft, minimal suprapubic discomfort. Back: No CVA tenderness. Genitourinary: Circumcised phallus with Stratton catheter in place. No visible drainage or blood from around the meatus. Both testicles are descended. Urine bag has yellow cloudy urine. MUSCULOSKELETAL: No obvious deformities. No clubbing. No cyanosis. No edema. NEUROLOGICAL: Awake and alert. No obvious cranial nerve deficits. Motor grossly within normal limits. Normal speech. PSYCHIATRIC: Appropriate mood and affect; insight and judgment normal. Data Data Last Documented VS Vital Signs Date Time Temp Pulse Resp B/P Pulse Ox O2 Delivery O2 Flow Rate FiO2 12/07/16 18:19 99.9 98 13 133/82 98 Orders Urinalysis - C+S If Indicated (12/07/16 20:14) Urinary Catheter Insert/Apply (12/07/16 20:14) Urinary Catheter - Remove (12/07/16 20:14) Tramadol (Ultram) (12/07/16 21:15) Urine Culture (12/07/16 20:45) Labs Laboratory Tests Test 12/07/16 20:45 Urine Color LIGHT-YELLOW Urine Turbidity HAZY Urine pH 5.5 Urine Specific [place] 1.014 Urine Protein TRACE mg/dL Urine Glucose (UA) 1000 mg/dL Urine Ketones NEG mg/dL Urine Occult Blood MOD Urine Nitrite NEG Urine Bilirubin NEG Urine Urobilinogen LESS THAN 2.0 MG/DL Urine Leukocyte Esterase LARGE Urine RBC 30 /hpf Urine WBC 80 /hpf Urine WBC Clumps MANY Urine Bacteria FEW /hpf Microscopic Urinalysis Comment CATH-CULTURE IND [facility] Medical Decision Making Medical Screen Exam Complete: Yes Emergency Medical Condition: Yes Medical Record Reviewed: Yes Interpretation(s) Laboratory Tests Test 12/07/16 20:45 Urine Color LIGHT-YELLOW Urine Turbidity HAZY Urine pH 5.5 Urine Specific [place] 1.014 Urine Protein TRACE mg/dL Urine Glucose (UA) 1000 mg/dL Urine Ketones NEG mg/dL Urine Occult Blood MOD Urine Nitrite NEG Urine Bilirubin NEG Urine Urobilinogen LESS THAN 2.0 MG/DL Urine Leukocyte Esterase LARGE Urine RBC 30 /hpf Urine WBC 80 /hpf Urine WBC Clumps MANY Urine Bacteria FEW /hpf Microscopic Urinalysis Comment CATH-CULTURE IND Differential Diagnosis Differential diagnosis includes complicated UTI, prostatitis, benign prostatic hypertrophy, renal insufficiency, obstructive uropathy. Narrative Course The patient's Stratton catheter was replaced and UA was sent to lab. The patient was administered Ultram 50 mg orally for pain. The patient's UA is positive for infection, therefore, old micros were reviewed. The patient had Escherichia coli infections in the past that were resistant to ciprofloxacin and sulfa, however, were sensitive to cefazolin and nitrofurantoin. Therefore, the patient we placed on Macrobid 100 mg twice a day for 10 days. He is advised to follow-up with his urologist. Return if symptoms worsen or progress. The patient was also administered 1 g of Rocephin IM prior to discharge. Diagnosis Primary Impression: Lower urinary tract obstruction Additional Impression: Encounter for Stratton catheter fitting and adjustment Patient Instructions: General Instructions Additional Instructions: Medication as directed. Follow-up with your primary physician. Return if symptoms worsen or progress. Med/Other Pt SpecificInfo: Prescription(s) given Scripts Nitrofurantoin Monohydrate Macrocrystals (Macrobid)100 Mg [id number] Mg PO BID 10 Days Ref 0 Prov:Jae Teresa MD 12/07/16 Disposition: 01 DISCHARGE HOME Condition: Stable Jae Teresa MD December 07, 2016 20:14
[2016-12-07] MEDS ORDERED: traMADol HCL 50 MG TAB PO ONE (21:15)
[2016-12-07 21:18] LABS: BACTERIA, URINE FEW /hpf; BLOOD, URINE MOD (NEG); GLUCOSE,URINE 1000 mg/dL (NEG); KETONE, URINE NEG (NEG); NITRITE,URINE NEG (NEG); PH, URINE 5.5 (5.0-8.5); URINE COLOR LIGHT-YELLOW (YELLW/STRAW)
[2016-12-07 21:19] LABS: COMMENT (UR) CATH-CULTURE IND; CULTURE IF INDICATED CATH CULTURE IND
[2016-12-07] MEDS ORDERED: MACR100C2 PO (21:27)
[2016-12-07] MEDS ORDERED: LIDOCAINE HCL 1% 50 ML VIAL XX ONE (21:30)
[2016-12-14] MEDS ORDERED: MECL-62 PO (16:31)
[2017-01-03] MEDS ORDERED: HUMALOG SQ (08:34)
== END 2016-12-07 22:26 | disposition home or self-care (01) ==
LOC: NEPD 18:17
DX: N39.0 Urinary tract infection, site not specified (principal); B96.5 Pseudomonas (aeruginosa) (mallei) (pseudomallei) as the cause of diseases classified elsewhere; B96.29 Other Escherichia coli [E. coli] as the cause of diseases classified elsewhere; Z46.6 Encounter for fitting and adjustment of urinary device; E11.9 Type 2 diabetes mellitus without complications; I48.91 Unspecified atrial fibrillation; Z79.01 Long term (current) use of anticoagulants; Z79.4 Long term (current) use of insulin
CPT/HCPCS: 51702; 81001; 87077; 87086; 87186; 96372; 99283; J0696

== ENCOUNTER 2016-12-24 19:05 | Inpatient (IN) | payer MEDICAID ==
[~2016-12-24 19:05] MED LIST changes: +MACR100C2 PO; -ONETKIT11; -ONETMIS8; -ONETTES4; -[UNRECOGNIZED DRUG - CODE]
[2016-12-24 19:26] VITALS: BP 170/79; PULSE 95; RESP 18; TEMP 98.1; O2SAT 97
[2016-12-24] MEDS ORDERED: SODIUM CHLOR 0.9% 1000 ML INJ 1,000 ML IV ONE ×3 (20:07→21:45)
--- NOTE | 2016-12-24 20:14 | PD ---
Physical Exam Date Seen by Provider: Dec 24, 2016 Time Seen by Provider: 20:10 Narrative 56-year-old Afro[place] male brought into the emergency department via ambulance with bilateral lower extremity weakness, and hyperglycemia, as well as polydipsia. Patient is a poor historian. Patient denies fever, chills, or significant pain. Blood sugar reported to be 575 by EMS. Patient is seen in the ambulance jamison Patient has no known drug allergies. Vital signs are stable. Labs ordered, including CBC, CMP, lipase, lactic acid, beta hydroxybuterate, magnesium, phosphorus, troponin, urinalysis, and serum osmolality. Venous blood gas is ordered as well. IV is ordered with 2 L normal saline bolus as well as 10 units of insulin. Blood sugars to be monitored every 30 minutes post insulin. Patient is awaiting mental bed placement. Data Data Last Documented VS Vital Signs Date Time Temp Pulse Resp B/P Pulse Ox O2 Delivery O2 Flow Rate FiO2 12/24/16 19:26 98.1 95 18 170/79 97 Room Air Orders Electrocardiogram (12/24/16 20:07) Complete Blood Count With Diff (12/24/16 20:07) Comprehensive Metabolic Panel (12/24/16 20:07) Magnesium (Mg) (12/24/16 20:07) Phosphorus (Po4) (12/24/16 20:07) Beta Hydroxybutyrate (Acetone) (12/24/16 20:07) Osmolality,Serum (12/24/16 20:07) Lactic Acid (12/24/16 20:07) Urinalysis - C+S If Indicated (12/24/16 20:07) Chest, Single Ap (12/24/16 20:07) Blood Gas Venous (Vbg) (12/24/16 20:07) Blood Glucose (12/24/16 20:07) Blood Glucose (12/24/16 20:37) Ecg Monitoring (12/24/16 20:07) Iv Access Insert/Monitor (12/24/16 20:07) Oximetry (12/24/16 20:07) NPO (12/24/16 20:07) Sodium Chlor 0.9% 1000 Ml Inj (Ns 1000 M (12/24/16 20:07) Sodium Chlor 0.9% 1000 Ml Inj (Ns 1000 M (12/24/16 20:37) Sodium Chloride 0.9% Flush (Ns Flush) (12/24/16 20:15) Troponin I (12/24/16 20:07) Lipase (12/24/16 20:07) Insulin Human Regular Inj (Novolin R Inj (12/24/16 20:15) MDM Medical Record Reviewed: Yes Supervised Visit with YAIR: Yes Condition: Stable Jori Valadez Dec 24, 2016 20:14
[2016-12-24] MEDS ORDERED: INSULIN HUMAN REGULAR 1,000 UNITS/10 ML VIAL IV PUSH ONE (20:15)
[2016-12-24] MEDS ORDERED: SODIUM CHLORIDE 0.9% FLUSH 10 ML FLUSH IVF PRN (20:15)
--- NOTE | 2016-12-24 20:38 | RADRPT ---
EXAM DATE/TIME: 12/24/2016 20:23 [facility] COMPARISON: CHEST PA & LAT, November 16, 2016, 14:37. INDICATIONS : Cough. MEDICAL HISTORY : Hypertension. Atrial fibrilation. SURGICAL HISTORY : None. ENCOUNTER: Initial ACUITY: 1 day PAIN SCORE: 0/10 LOCATION: Bilateral chest FINDINGS: A single view of the chest demonstrates the lungs to be symmetrically aerated without evidence of mas s, infiltrate or effusion. The cardiomediastinal contours are unremarkable. Osseous structures are intact. CONCLUSION: No evidence of acute cardiopulmonary disease. Ventura Jacob MD on December 24, 2016 at 20:36 Board Certified Radiologist. This report was verified electronically.
[2016-12-24 20:55] LABS: AUTOMATED NEUTROPHIL # 11.8 TH/MM3 (1.8-7.7); BASOPHIL # 0.1 TH/MM3 (0-0.2); BASOPHIL % 0.5 % (0.0-2.0); HEMATOCRIT 40.6 % (39.0-51.0); HEMO FLAGS DIFF FINAL; LYMPH % 5.3 % (9.0-44.0); LYMPHOCYTE # 0.7 TH/MM3 (1.0-4.8); MEAN CELL VOLUME 89.9 FL (80.0-100.0); MEAN CORPUSCULAR HEMOGLOBIN 28.4 PG (27.0-34.0); MEAN CORPUSCULAR HGB CONC 31.6 % (32.0-36.0); MONO % 3.5 % (0.0-8.0); NEUT % 90.7 % (16.0-70.0); PLATELET COUNT 308 TH/MM3 (150-450); RED BLOOD COUNT 4.52 MIL/MM3 (4.50-5.90)
[2016-12-24 21:14] LABS: ANION GAP 30 MEQ/L (5-15)
[2016-12-24 21:25] LABS: ALKALINE PHOSPHATASE 129 U/L (45-117); ALT (GPT) 12 U/L (12-78); AST (GOT) 20 U/L (15-37); BETA-HYDROXYBUTYRATE 13.13 MMOL/L (0.00-0.39); BICARBONATE 10.7 MEQ/L (21.0-32.0); BLOOD UREA NITROGEN 52 MG/DL (7-18); CHLORIDE 92 MEQ/L (98-107); GLOMERULAR FILTRATION RATE 28 ML/MIN (>89); POTASSIUM 5.7 MEQ/L (3.5-5.1); SODIUM (NA) 133 MEQ/L (136-145); TOTAL BILIRUBIN ADULT 0.9 MG/DL (0.2-1.0)
[2016-12-24] MEDS ORDERED: DEXT 5%-NACL 0.9% 1000 ML INJ 1,000 ML IV SCH (21:31)
[2016-12-24] MEDS ORDERED: SODIUM CHLOR 0.9% 1000 ML INJ 1,000 ML IV SCH (21:31)
[2016-12-24] MEDS ORDERED: SODIUM BICARBONATE 8.4% SOLN 50 MEQ/50 ML VIAL IV PRN ×4 (21:45→22:45)
[2016-12-24] MEDS ORDERED: INSULIN REGULAR (IV INFUSION) 100 UNITS in SODIUM CHLORIDE 0.9% INJ 99 ML IV SCH ×2 (21:45→22:45)
[2016-12-24] MEDS ORDERED: POTASSIUM CHLOR 20 MEQ PREMIX 100 ML IV PRN ×12 (21:45→22:45)
[2016-12-24] MEDS ORDERED: SODIUM PHOSPHATE INJ 15 MMOL in SODIUM CHLORIDE 0.9% INJ 100 ML IV PRN ×2 (21:45→22:45)
[2016-12-24] MEDS ORDERED: POTASSIUM CHLOR 40 MEQ PREMIX 100 ML IV PRN ×4 (21:45→22:45)
[2016-12-24 22:00] VITALS: BP 170/88; PULSE 85; RESP 26; O2SAT 99
[2016-12-24 22:00] LABS: BACTERIA, URINE RARE /hpf; BLOOD, URINE SMALL (NEG); COMMENT (UR) CULT NOT INDICATED; CULTURE IF INDICATED CULT NOT INDICATED; GLUCOSE,URINE 1000 mg/dL (NEG); KETONE, URINE 80 mg/dL (NEG); MUCUS URINE FEW /lpf (OCC); NITRITE,URINE NEG (NEG); URINE COLOR LIGHT-YELLOW (YELLW/STRAW)
[2016-12-24 22:36] LABS: BLOOD GAS VENOUS BASE EXCESS -17.4 mmol/L (-2-2); BLOOD GAS VENOUS HCO3 10 mmol/L (22-26); BLOOD GAS VENOUS O2 CONTENT 6.3 Vol % (9.0-17.0); BLOOD GAS VENOUS O2 HGB SAT 39 % (70-76); BLOOD GAS VENOUS PCO2 31 mmHg (44-48); BLOOD GAS VENOUS PO2 33 mmHg (35-40); BLOOD GAS VENOUS pH 7.14 (7.360-7.400); TEMP CORR TO 98.6
--- NOTE | 2016-12-24 22:36 | PD ---
HPI Chief Complaint: General Weakness Time Seen by Provider: 20:47 Travel History International Travel<30 days: No Contact w/Intl Traveler<30days: No Traveled to known affect area: No History of Present Illness HPI 56-year-old male with history of insulin dependent diabetes here for evaluation of generalized weakness and worsening lower extremity weakness. Symptoms have been going on for last 5 days. Patient also endorses generalized malaise. He is scheduled for prostatectomy in 2 weeks. He has a chronic indwelling Stratton catheter. He denies chest pain or dyspnea. No abdominal pain, nausea, vomiting , or diarrhea. No fevers or chills. PFSH Past Medical History Hx Anticoagulant Therapy: Yes Atrial Fibrillation: Yes Cardiovascular Problems: No Diabetes: Yes Diminished Hearing: No Genitourinary: No Musculoskeletal: No Neurologic: Yes (VERTIGO) Reproductive: No Respiratory: No Past Surgical History Prostatectomy: Yes Other Surgery: No Social History Alcohol Use: Yes (OCCASIONALLY) Tobacco Use: No Substance Use: No Allergies-Medications (Allergen,Severity, Reaction): Coded Allergies: No Known Allergies (Verified , 12/24/16) Reported Meds & Prescriptions Reported Meds & Active Scripts Active Meclizine (Meclizine HCl) 25 Mg Tab 25 Mg PO TID PRN Macrobid (Nitrofurantoin Monoh/Nitrofur Macro) 100 Mg Cap 100 Mg PO BID 10 Days Humalog Inj (Insulin Human Lispro) 1,000 Unit/10 Ml Vial 20 Units SQ BIDAC Levemir Inj (Insulin Detemir) 1,000 unit/ 10 ML Vial 10 Units SQ HS Do not mix with any other Insulin. Tamsulosin (Tamsulosin HCl) 0.4 Mg Cap 0.4 Mg PO BID Reported Metoprolol Tartrate 25 Mg Tab 25 Mg PO DAILY Warfarin 4 Mg Tab 8 Mg PO HS Proscar (Finasteride) 5 Mg Tab 5 Mg PO HS Do not crush. Levemir Inj (Insulin Detemir) 1,000 unit/ 10 ML Vial 10 Units SQ HS Do not mix with any other Insulin. Lisinopril 20 Mg Tab 20 Mg PO HS Review of Systems Except as stated in HPI: all other systems reviewed are Neg Physical Exam Narrative GENERAL: Well-developed, thin, awake, alert, no apparent distress. SKIN: Focused skin assessment warm/dry. No rash. HEAD: Atraumatic. Normocephalic. EYES: Pupils equal and round. No scleral icterus. No injection or drainage. ENT: No nasal bleeding or discharge. Mucous membranes pink and dry. NECK: Trachea midline. No JVD. No nuchal rigidity. CARDIOVASCULAR: Regular rate and rhythm. RESPIRATORY: No accessory muscle use. Clear to auscultation. Breath sounds equal bilaterally. GASTROINTESTINAL: Abdomen soft, non-tender, nondistended. MUSCULOSKELETAL: No obvious deformities. No clubbing. No cyanosis. No edema. NEUROLOGICAL: Awake and alert. No obvious cranial nerve deficits. Motor grossly within normal limits. Normal speech. PSYCHIATRIC: Appropriate mood and affect; insight and judgment normal. Data Data Last Documented VS Vital Signs Date Time Temp Pulse Resp B/P Pulse Ox O2 Delivery O2 Flow Rate FiO2 12/24/16 19:26 98.1 95 18 170/79 97 Room Air Orders Electrocardiogram (12/24/16 20:07) Complete Blood Count With Diff (12/24/16 20:07) Comprehensive Metabolic Panel (12/24/16 20:07) Magnesium (Mg) (12/24/16 20:07) Phosphorus (Po4) (12/24/16 20:07) Beta Hydroxybutyrate (Acetone) (12/24/16 20:07) Osmolality,Serum (12/24/16 20:07) Lactic Acid (12/24/16 20:07) Urinalysis - C+S If Indicated (12/24/16 20:07) Chest, Single Ap (12/24/16 20:07) Blood Gas Venous (Vbg) (12/24/16 20:07) Blood Glucose (12/24/16 20:07) Blood Glucose (12/24/16 20:37) Ecg Monitoring (12/24/16 20:07) Iv Access Insert/Monitor (12/24/16 20:07) Oximetry (12/24/16 20:07) NPO (12/24/16 20:07) Sodium Chlor 0.9% 1000 Ml Inj (Ns 1000 M (12/24/16 20:07) Sodium Chlor 0.9% 1000 Ml Inj (Ns 1000 M (12/24/16 20:37) Sodium Chloride 0.9% Flush (Ns Flush) (12/24/16 20:15) Troponin I (12/24/16 20:07) Lipase (12/24/16 20:07) Insulin Human Regular Inj (Novolin R Inj (12/24/16 20:15) Kaitara Taraka / Telemetry [id number] (12/24/16 21:31) ^ Insert Iv (12/24/16 21:31) Diet Npo (12/25/16 Breakfast) Sodium Chlor 0.9% 1000 Ml Inj (Ns 1000 M (12/24/16 21:31) Dext 5%-Nacl 0.9% 1000 Ml Inj (D5w-Ns 10 (12/24/16 21:31) Insulin Regular (Iv Infusion) (Novolin R (12/24/16 21:45) Potassium Chlor 40 Meq Premix (Kcl 40 Me (12/24/16 21:45) Potassium Chlor 40 Meq Premix (Kcl 40 Me (12/24/16 21:45) Potassium Chlor 20 Meq Premix (Kcl 20 Me (12/24/16 21:45) Potassium Chlor 20 Meq Premix (Kcl 20 Me (12/24/16 21:45) Potassium Chlor 20 Meq Premix (Kcl 20 Me (12/24/16 21:45) Potassium Chlor 20 Meq Premix (Kcl 20 Me (12/24/16 21:45) Potassium Chlor 20 Meq Premix (Kcl 20 Me (12/24/16 21:45) Potassium Chlor 20 Meq Premix (Kcl 20 Me (12/24/16 21:45) Sodium Bicarbonate 8.4% Inj (Sodium Bica (12/24/16 21:45) Sodium Bicarbonate 8.4% Inj (Sodium Bica (12/24/16 21:45) Sodium Phosphate Inj (Sodium Phosphate I (12/24/16 21:45) Basic Metabolic Panel (Bmp) (12/25/16 02:31) Basic Metabolic Panel (Bmp) (12/25/16 08:31) Basic Metabolic Panel (Bmp) (12/25/16 14:31) Basic Metabolic Panel (Bmp) (12/25/16 20:31) Magnesium (Mg) (12/25/16 02:31) Magnesium (Mg) (12/25/16 08:31) Magnesium (Mg) (12/25/16 14:31) Magnesium (Mg) (12/25/16 20:31) Phosphorus (Po4) (12/25/16 02:31) Phosphorus (Po4) (12/25/16 08:31) Phosphorus (Po4) (12/25/16 14:31) Phosphorus (Po4) (12/25/16 20:31) Beta Hydroxybutyrate (Acetone) (12/25/16 08:31) Beta Hydroxybutyrate (Acetone) (12/25/16 20:31) Sodium Chlor 0.9% 1000 Ml Inj (Ns 1000 M (12/24/16 21:45) Admit Order (Ed Use Only) (12/24/16 22:30) Labs Laboratory Tests Test 12/24/16 12/24/16 12/24/16 12/24/16 19:30 20:38 20:40 21:30 White Blood Count 13.0 TH/MM3 Red Blood Count 4.52 MIL/MM3 Hemoglobin 12.8 GM/DL Hematocrit 40.6 % Mean Corpuscular Volume 89.9 FL Mean Corpuscular Hemoglobin 28.4 PG Mean Corpuscular Hemoglobin 31.6 % Concent Red Cell Distribution Width 16.0 % Platelet Count 308 TH/MM3 Mean Platelet Volume 11.3 FL Neutrophils (%) (Auto) 90.7 % Lymphocytes (%) (Auto) 5.3 % Monocytes (%) (Auto) 3.5 % Eosinophils (%) (Auto) 0.0 % Basophils (%) (Auto) 0.5 % Neutrophils # (Auto) 11.8 TH/MM3 Lymphocytes # (Auto) 0.7 TH/MM3 Monocytes # (Auto) 0.5 TH/MM3 Eosinophils # (Auto) 0.0 TH/MM3 Basophils # (Auto) 0.1 TH/MM3 CBC Comment DIFF FINAL Differential Comment Sodium Level 133 MEQ/L Potassium Level 5.7 MEQ/L Chloride Level 92 MEQ/L Carbon Dioxide Level 10.7 MEQ/L Anion Gap 30 MEQ/L Blood Urea Nitrogen 52 MG/DL Creatinine 2.85 MG/DL Estimat Glomerular Filtration 28 ML/MIN Rate Random Glucose 720 MG/DL Calcium Level 10.2 MG/DL Phosphorus Level 6.4 MG/DL Magnesium Level 3.0 MG/DL Total Bilirubin 0.9 MG/DL Aspartate Amino Transf 20 U/L (AST/SGOT) Alanine Aminotransferase 12 U/L (ALT/SGPT) Alkaline Phosphatase 129 U/L Troponin I 0.03 NG/ML Total Protein 9.3 GM/DL Albumin 3.6 GM/DL Lipase 357 U/L B-Hydroxybutyrate 13.13 MMOL/L Serum Osmolality 365 MOSM/KG Lactic Acid Level 2.9 mmol/L Urine Color LIGHT-YELLOW Urine Turbidity CLEAR Urine pH 5.0 Urine Specific [place] 1.017 Urine Protein NEG mg/dL Urine Glucose (UA) 1000 mg/dL Urine Ketones 80 mg/dL Urine Occult Blood SMALL Urine Nitrite NEG Urine Bilirubin NEG Urine Urobilinogen LESS THAN 2.0 MG/DL Urine Leukocyte Esterase NEG Urine RBC LESS THAN 1 /hpf Urine WBC 1 /hpf Urine Bacteria RARE /hpf Urine Mucus FEW /lpf Urine Yeast (Budding) OCC Microscopic Urinalysis Comment CULT NOT INDICATED MDM Medical Decision Making Medical Screen Exam Complete: Yes Emergency Medical Condition: Yes Differential Diagnosis DKA, dehydration, sepsis, metabolic abnormality Narrative Course Patient was initially evaluated on the ambulance hallway by my PA and was given an insulin bolus for suspected DKA with a fingerstick of 575. Vital signs show heart rate 95, blood pressure 170/79, pulse ox 97% on room air , oral temp of 98.1F. CBC shows WBC 13, hemoglobin 12.8, hematocrit 40.6, platelets really, neutrophils 90.7%. CMP is remarkable for potassium 5.7, bicarbonate 10.7, anion gap 30, BUN 52, creatinine 2.5, GFR 28, random glucose 720, serum osmolality 365, calcium 10.2. Lactic acid is 2.9. Beta hydroxybutyrate is 13.13. UA is not suggestive of UTI, shows 80 ketones with 1000 glucose. Venous pH is 7.13 Patient was given 3 L of normal saline IV as well as an insulin bolus of 10 units IV. DKA protocol initiated. Case initially discussed with hospitalist Dr. Pérez who requested the patient be admitted to the chief librarian music department service. Case discussed with chief librarian music department Dr. Smith who will admit the patient to his service. Critical Care Narrative Aggregate critical care time was 35 minutes. Time to perform other separately billable procedures was not included in the critical care time. My time did not include minutes spent treating any other patients simultaneously or on activities that did not directly contribute to the patient's treatment. The services I provided to this patient were to treat and/or prevent clinically significant deterioration that could result in: , permanent disability, worsening clinical condition, diabetic coma I provided critical care services requiring my management, as noted below: Chart data review, documentation time, medication orders and management, vital sign assessments/reviewing monitor data, ordering and reviewing lab tests, ordering and interpreting/reviewing x-rays and diagnostic studies, care of the patient and discussion of the patient with the admitting physicians. Diagnosis Primary Impression: DKA (diabetic ketoacidoses) Qualified Code: E10.10 - Diabetic ketoacidosis without coma associated with type 1 diabetes mellitus Condition: Stable Rip Whelan MD Dec 24, 2016 22:36
[2016-12-24 22:37] LABS: CRITICAL VALUE YES; OXYGEN DEVICE RA
[2016-12-24 22:38] LABS: DRAW SITE PIV; FIO2 21 %; STAT YES
[2016-12-24] MEDS: SODIUM CHLOR 0.9% 1000 ML INJ 1,000 ML IV SCH (22:38)
--- NOTE | 2016-12-24 22:43 | HHI.HP ---
[facility] Service Critical Care Medicine Primary Care Physician Noemí Newton MD Admission Diagnosis DKA Diagnosis: Travel History International Travel<30 Days: No Contact w/Intl Traveler <30 Da: No Traveled to Known Affected Are: No History of Present Illness 56-year-old male with history of insulin dependent diabetes, missed a few doses at home, here for evaluation of generalized weakness and worsening lower extremity weakness. Symptoms have been going on for last 5 days. Patient also endorses generalized malaise. He is scheduled for prostatectomy in 2 weeks. He has a chronic indwelling Stratton catheter. He denies chest pain or dyspnea. No abdominal pain, nausea, vomiting, or diarrhea. No fevers or chills. Review of Systems Constitutional: DENIES: Diaphoretic episodes, Fatigue, Fever, Weight gain, Weight loss, Chills, Dizziness, Change in appetite, Night Sweats Endocrine: DENIES: Heat/cold intolerance, Polydipsia, Polyuria, Polyphagia Eyes: DENIES: Blurred vision, Diplopia, Eye inflammation, Eye pain, Vision loss , Photosensitivity, Double Vision Ears, nose, mouth, throat: DENIES: Tinnitus, Hearing loss, Vertigo, Nasal discharge, Oral lesions, Throat pain, Hoarseness, Ear Pain, Running Nose, Epistaxis, Sinus Pain, Toothache, Odynophagia Respiratory: DENIES: Apneas, Cough, Snoring, Wheezing, Hemoptysis, Sputum production, Shortness of breath Cardiovascular: DENIES: Chest pain, Palpitations, Syncope, Dyspnea on Exertion , PND, Lower Extremity Edema, Orthopnea, Claudication Gastrointestinal: DENIES: Abdominal pain, Black stools, Bloody stools, Constipation, Diarrhea, Nausea, Vomiting, Difficulty Swallowing, Anorexia Genitourinary: DENIES: Sexual dysfunction, Urinary frequency, Urinary incontinence, Urgency, Hematuria, Dysuria, Nocturia, Penile Discharge, Testicular Pain, Testicular Swelling Musculoskeletal: DENIES: Joint pain, Muscle aches, Stiffness, Joint Swelling, Back pain, Neck pain Integumentary: DENIES: Abnormal pigmentation, Nail changes, Pruritus, Rash Hematologic/lymphatic: DENIES: Bruising, Lymphadenopathy Immunologic/allergic: DENIES: Eczema, Urticaria Neurologic: COMPLAINS OF: Abnormal gait, Poor Balance, DENIES: Headache, Localized weakness, Paresthesias, Seizures, Speech Problems, Tremor Psychiatric: DENIES: Anxiety, Confusion, Mood changes, Depression, Hallucinations, Agitation, Suicidal Ideation, Homicidal Ideation, Delusions Past Family Social History Allergies: Coded Allergies: No Known Allergies (Verified , 12/24/16) Past Medical History Prior bouts of vertigo Left eye blindness BPH Afib DM Past Surgical History Cystoscopy Reported Medications Reported Meds & Active Scripts Active Meclizine (Meclizine HCl) 25 Mg Tab 25 Mg PO TID PRN Humalog Inj (Insulin Human Lispro) 1,000 Unit/10 Ml Vial 20 Units SQ BIDAC Levemir Inj (Insulin Detemir) 1,000 unit/ 10 ML Vial 10 Units SQ HS Do not mix with any other Insulin. Tamsulosin (Tamsulosin HCl) 0.4 Mg Cap 0.4 Mg PO BID Reported Metoprolol Tartrate 25 Mg Tab 25 Mg PO DAILY Proscar (Finasteride) 5 Mg Tab 5 Mg PO HS Do not crush. Lisinopril 20 Mg Tab 20 Mg PO HS Active Ordered Medications Current Medications Medications (Trade) Dose Ordered Sig/Jluis Route PRN Reason Start Time Stop Time Status Last Admin Dose Admin Sodium Chloride 1,000 ml @ 250 mls/hr Q4H IV 12/24/16 22:38 Dextrose/Sodium Chloride 1,000 ml @ 200 mls/hr Q5H IV 12/24/16 22:38 Insulin Human Regular 100 units/ Sodium Chloride 100 ml @ 0 mls/hr TITRATE IV 12/24/16 22:45 12/24/16 23:07 Potassium Chloride 100 ml @ 100 mls/hr Q1H PRN IV SEE LABEL COMMENTS 12/24/16 22:45 Potassium Chloride 100 ml @ 50 mls/hr Q2H PRN IV SEE LABEL COMMENTS 12/24/16 22:45 Potassium Chloride 100 ml @ 100 mls/hr Q1H PRN IV SEE LABEL COMMENTS 12/24/16 22:45 Potassium Chloride 100 ml @ 100 mls/hr Q1H PRN IV SEE LABEL COMMENTS 12/24/16 22:45 Potassium Chloride 100 ml @ 50 mls/hr Q2H PRN IV SEE LABEL COMMENTS 12/24/16 22:45 Potassium Chloride 100 ml @ 50 mls/hr Q2H PRN IV SEE LABEL COMMENTS 12/24/16 22:45 Potassium Chloride 100 ml @ 50 mls/hr Q2H PRN IV SEE LABEL COMMENTS 12/24/16 22:45 Potassium Chloride (KCl 20 Meq Premix Inj) 100 ml @ 50 mls/hr Q2H PRN IV SEE LABEL COMMENTS 12/24/16 22:45 Sodium Bicarbonate (Sodium Bicarbonate 8.4% Inj) 100 meq UNSCH PRN IV SEE LABEL COMMENTS 12/24/16 22:45 Sodium Bicarbonate 50 meq 50 meq UNSCH PRN IV SEE LABEL COMMENTS 12/24/16 22:45 Sodium Phosphate/ Sodium Chloride (Sodium Phosphate Inj/NS Inj) 105 ml @ 25 mls/hr UNSCH PRN IV SEE LABEL COMMENTS 12/24/16 22:45 Miscellaneous Information 1 [id number] XX 12/24/16 22:45 Chlorhexidine Gluconate (Chlorhexidine 2% Cloth) 3 pack Taper DAILY@04 TOP 12/25/16 04:00 12/21/17 03:59 Chlorhexidine Gluconate (Chlorhexidine 2% Cloth) 3 pack UNSCH PRN TOP HYGIENIC CARE 12/24/16 22:45 Family History Noncontributory Social History Negative 3 Physical Exam Vital Signs Vital Signs Date Time Temp Pulse Resp B/P Pulse Ox O2 Delivery O2 Flow Rate FiO2 12/24/16 19:26 98.1 95 18 170/79 97 Room Air Physical Exam GENERAL: Well-nourished, well-developed patient. SKIN: Warm and dry. HEAD: Normocephalic. EYES: No scleral icterus. No injection or drainage. NECK: Supple, trachea midline. No JVD or lymphadenopathy. CARDIOVASCULAR: Regular rate and rhythm without murmurs, gallops, or rubs. RESPIRATORY: Breath sounds equal bilaterally. No accessory muscle use. GASTROINTESTINAL: Abdomen soft, non-tender, nondistended. MUSCULOSKELETAL: No cyanosis, or edema. BACK: Nontender without obvious deformity. No CVA tenderness. EXTREMITIES: No clubbing cyanosis or edema Laboratory Laboratory Tests Test 12/24/16 12/24/16 12/24/16 12/24/16 19:30 20:38 20:40 21:30 White Blood Count 13.0 Red Blood Count 4.52 Hemoglobin 12.8 Hematocrit 40.6 Mean Corpuscular Volume 89.9 Mean Corpuscular Hemoglobin 28.4 Mean Corpuscular Hemoglobin 31.6 Concent Red Cell Distribution Width 16.0 Platelet Count 308 Mean Platelet Volume 11.3 Neutrophils (%) (Auto) 90.7 Lymphocytes (%) (Auto) 5.3 Monocytes (%) (Auto) 3.5 Eosinophils (%) (Auto) 0.0 Basophils (%) (Auto) 0.5 Neutrophils # (Auto) 11.8 Lymphocytes # (Auto) 0.7 Monocytes # (Auto) 0.5 Eosinophils # (Auto) 0.0 Basophils # (Auto) 0.1 CBC Comment DIFF FINAL Differential Comment Sodium Level 133 Potassium Level 5.7 Chloride Level 92 Carbon Dioxide Level 10.7 Anion Gap 30 Blood Urea Nitrogen 52 Creatinine 2.85 Estimat Glomerular Filtration 28 Rate Random Glucose 720 Calcium Level 10.2 Phosphorus Level 6.4 Magnesium Level 3.0 Total Bilirubin 0.9 Aspartate Amino Transf 20 (AST/SGOT) Alanine Aminotransferase 12 (ALT/SGPT) Alkaline Phosphatase 129 Troponin I 0.03 Total Protein 9.3 Albumin 3.6 Lipase 357 B-Hydroxybutyrate 13.13 Serum Osmolality 365 Lactic Acid Level 2.9 Urine Color LIGHT-YELLOW Urine Turbidity CLEAR Urine pH 5.0 Urine Specific [place] 1.017 Urine Protein NEG Urine Glucose (UA) 1000 Urine Ketones 80 Urine Occult Blood SMALL Urine Nitrite NEG Urine Bilirubin NEG Urine Urobilinogen LESS THAN 2.0 Urine Leukocyte Esterase NEG Urine RBC LESS THAN 1 Urine WBC 1 Urine Bacteria RARE Urine Mucus FEW Urine Yeast (Budding) OCC Microscopic Urinalysis Comment CULT NOT INDICATED Test 12/24/16 21:47 Blood Gas Puncture Site PIV Blood Gas Patient Temperature 98.6 Venous Blood pH 7.14 Venous Blood Partial Pressure 31 CO2 Venous Blood Partial Pressure 33 O2 Venous Blood HCO3 10 Venous Blood Oxygen Saturation 39 Venous Blood Oxygen Content 6.3 Venous Blood Base Excess -17.4 Oxygen Delivery Device RA Blood Gas Inspired Oxygen 21 Result Diagram: 12/24/16192912/24/161929 Imaging Last 24 hours Impressions Chest X-Ray 12/24/162006 Signed Impressions: Service Date/Time: Saturday, December 24, 2016 20:23 - CONCLUSION: No evidence of acute cardiopulmonary disease. Ventura Jacob MD Assessment and Plan Assessment and Plan DKA - IV hydration - Insulin drip per protocol - Monitor electrolytes and replace Hypertension - Hold lisinopril due to high creatinine and potassium - Resume at the per all BPH - Tamsulosin - Finasteride Vertigo - Meclizine DVT prophylaxis - Subcutaneous heparin and Pepcid Critical Care: The total critical care time was 35 minutes. Time to perform other separately billable procedures was not included in the critical care time. Transfer to hospitalist service Lee Abel MD Dec 24, 2016 22:43
[2016-12-24] MEDS ORDERED: MISCELLANEOUS NURSING INFORMATION XX SCH (22:45)
[2016-12-24] MEDS ORDERED: CHLORHEXIDINE GLUCONATE 2 % 1 PACK (2 CLOTHS) TOP PRN (22:45)
[2016-12-24 23:00] VITALS: BP 175/92; PULSE 80; RESP 24; O2SAT 99
[2016-12-24 23:25] VITALS: RESP 24; O2SAT 99
[2016-12-25] VITALS (9 sets, daily range): BP systolic 135–177; BP diastolic 69–84; PULSE 66–84; RESP 13–22; TEMP 97.6–97.8; O2SAT 96–98
[2016-12-25] MEDS: SODIUM CHLOR 0.9% 1000 ML INJ 1,000 ML IV SCH ×4 (00:05→16:45)
[2016-12-25] MEDS: DEXT 5%-NACL 0.9% 1000 ML INJ 1,000 ML IV SCH ×3 (03:38→08:38)
[2016-12-25 03:54] LABS: AUTOMATED NEUTROPHIL # 10.7 TH/MM3 (1.8-7.7); BASOPHIL % 0.3 % (0.0-2.0); HEMATOCRIT 36.6 % (39.0-51.0); HEMO FLAGS DIFF FINAL; LYMPH % 6.5 % (9.0-44.0); LYMPHOCYTE # 0.8 TH/MM3 (1.0-4.8); MEAN CELL VOLUME 88.3 FL (80.0-100.0); MEAN CORPUSCULAR HEMOGLOBIN 28.6 PG (27.0-34.0); MEAN CORPUSCULAR HGB CONC 32.4 % (32.0-36.0); MONO % 5.8 % (0.0-8.0); NEUT % 87.4 % (16.0-70.0); PLATELET COUNT 237 TH/MM3 (150-450); RED BLOOD COUNT 4.14 MIL/MM3 (4.50-5.90); RED CELL DISTRIBUTION WIDTH 16.3 % (11.6-17.2); WHITE BLOOD COUNT 12.2 TH/MM3 (4.0-11.0)
[2016-12-25] MEDS ORDERED: CHLORHEXIDINE GLUCONATE 2 % 1 PACK (2 CLOTHS) TOP SCH (04:00)
[2016-12-25 05:44] LABS: BLOOD GAS BASE EXCESS -3.9 mmol/L (-2-2); BLOOD GAS CARBOXYHEMOGLOBIN 2.3 % (0-4); BLOOD GAS HCO3 20 mmol/L (22-26); BLOOD GAS METHEMOGLOBIN 0.8 % (0-2); BLOOD GAS O2 HGB SATURATION 96 % (90-100); BLOOD GAS PCO2 36 mmHg (38-42); BLOOD GAS PO2 129 mmHg (61-120); BLOOD GAS TOTAL HGB 10.9 G/DL (12.0-16.0); CRITICAL VALUE NO; TEMP CORR TO 98.6
[2016-12-25 05:45] LABS: DRAW SITE RT RADIAL; FIO2 21 %; NUMBER OF ARTERIAL PUNCTURES 1; OXYGEN DEVICE ROOM AIR; STAT NO; ULNAR PULSE PRESENT
[2016-12-25] MEDS: TAMSULOSIN HCL 0.4 MG CAP PO SCH ×2 (08:46→20:20)
[2016-12-25] MEDS: METOPROLOL TARTRATE 25 MG TAB PO SCH (08:46)
--- NOTE | 2016-12-25 11:35 | HHI.CCPN ---
Subjective Remarks/Hospital Course 56-year-old male with history of insulin dependent diabetes, missed a few doses at home, here for evaluation of generalized weakness and worsening lower extremity weakness. Symptoms have been going on for last 5 days. Patient also endorses generalized malaise. He is scheduled for prostatectomy in 2 weeks. He has a chronic indwelling Stratton catheter. He denies chest pain or dyspnea. No abdominal pain, nausea, vomiting, or diarrhea. No fevers or chills. Subjective 12/25: Off insulin drip. Afebrile. No nausea vomiting. Objective Vital Signs Date Time Temp Pulse Resp B/P Pulse Ox O2 Delivery O2 Flow Rate FiO2 12/25/16 08:00 97 Room Air 12/25/16 07:00 71 12/25/16 00:00 22 177/83 12/24/16 19:26 98.1 Intake and Output 12/24/16 12/24/16 12/25/16 08:00 16:00 00:00 Output Total 600 ml Balance -600 ml Result Diagram: 12/25/16 0315 12/24/16 1930 Imaging Last Impressions Chest X-Ray 12/24/162006 Signed Impressions: Service Date/Time: Saturday, December 24, 2016 20:23 - CONCLUSION: No evidence of acute cardiopulmonary disease. Ventura Jacob MD Objective Remarks GENERAL: 48-year-old male, resting in bed in no acute distress SKIN: Warm and dry. HEAD: Normocephalic. EYES: No scleral icterus. No injection or drainage. NECK: Supple, trachea midline. No JVD or lymphadenopathy. CARDIOVASCULAR: Regular rate and rhythm without murmurs, gallops, or rubs. RESPIRATORY: Breath sounds equal bilaterally. No accessory muscle use. GASTROINTESTINAL: Abdomen soft, non-tender, nondistended. MUSCULOSKELETAL: No if can peripheral BACK: Nontender without obvious deformity. No CVA tenderness. Urinary Catheter: Yes Assessment to: Continue Stratton insert reason: Prolonged Immobilization A/P Assessment and Plan Neuro/Psych: Avoid sedatives Acetaminophen for pain/fever CV: History of hypertension Lactic acidosis Metoprolol 25 mg by mouth twice a day/home medication resumed Holding lisinopril 20 mg by mouth daily light of acute kidney injury As needed and hypertensive including labetalol and hydralazine Resp: Nasal cannula if needed to maintain saturation greater than equal to 92% Incentive spirometry while awake GI: Advance diet once gap closes : BPH - Tamsulosin - Finasteride Maintain Stratton Endo: DKA DM Medications Levemir 10 units at night and insulin lispro 20 units twice a day Renal: Acute kidney injury Follow BMP. IV fluids per protocol now on D5 normal saline at 200 cc an hour Heme: Leukocytosis Anemia Monitor CBC daily. Follow trends ID: Monitor for infection MSK: PT evaluate and treat FEN: Pseudohyponatremia secondary to hyperglycemia Hyperkalemia Monitor BMP DVT prophylaxis - Subcutaneous heparin GI prophylaxis Pepcid Critical Care: The total care time was 25 minutes. Time to perform other separately billable procedures was not included in the critical care time. Level II Transfer to hospitalist service a.m. 12/26 Jose De Jesus Vergara MD Dec 25, 2016 11:35
[2016-12-25 12:09] LABS: BETA-HYDROXYBUTYRATE 1.34 MMOL/L (0.00-0.39); MAGNESIUM 2.6 MG/DL (1.5-2.5); POTASSIUM 4.1 MEQ/L (3.5-5.1)
[2016-12-25] MEDS ORDERED: SODIUM CHLOR 0.9% 1000 ML INJ 1,000 ML IV SCH (12:16)
[2016-12-25] MEDS ORDERED: POTASSIUM CHLORIDE 25 MEQ EFFERVESCENT TAB PO PRN (12:30)
[2016-12-25] MEDS ORDERED: MISCELLANEOUS NURSING INFORMATION XX SCH (12:30)
[2016-12-25] MEDS ORDERED: hydrALAZINE HCL 20 MG/ML VIAL IV PUSH PRN (12:30)
[2016-12-25] MEDS ORDERED: DEXTROSE 50% IN WATER 50 ML VIAL(D50) IV PRN (12:30)
[2016-12-25] MEDS ORDERED: SODIUM CHLORIDE 0.9% FLUSH 10 ML FLUSH IV FLUSH PRN (12:30)
[2016-12-25] MEDS ORDERED: LABETALOL HCL 100 MG/20 ML VIAL IV PUSH PRN (12:30)
[2016-12-25] MEDS ORDERED: POTASSIUM CHLOR 40 MEQ PREMIX 100 ML IV PRN ×2 (12:30)
[2016-12-25] MEDS ORDERED: CHLORHEXIDINE GLUCONATE 2 % 1 PACK (2 CLOTHS) TOP PRN (12:30)
[2016-12-25] MEDS ORDERED: ACETAMINOPHEN 325 MG TAB PO PRN (12:30)
[2016-12-25] MEDS ORDERED: SODIUM PHOSPHATE INJ 30 MMOL in SODIUM CHLOR 0.9% 250 ML INJ 240 ML IV PRN (12:30)
[2016-12-25] MEDS ORDERED: MORPHINE SULFATE 4 MG/ML INJ IV PRN (12:30)
[2016-12-25] MEDS ORDERED: MAGNESIUM SULFATE INJ 2 GM in SODIUM CHLORIDE 0.9% INJ 96 ML IV PRN (12:30)
[2016-12-25] MEDS ORDERED: NITROGLYCERIN 2% OINT 1 GM PACKET TOPICAL PRN (12:30)
[2016-12-25] MEDS ORDERED: INSULIN HUMAN REGULAR 1,000 UNITS/10 ML VIAL SQ ONE (12:30)
[2016-12-25] MEDS ORDERED: POTASSIUM CHLOR 20 MEQ PREMIX 100 ML IV PRN ×2 (12:30)
[2016-12-25] MEDS ORDERED: GLUCAGON 1 MG/ML VIAL OTHER PRN (12:30)
[2016-12-25] MEDS ORDERED: MAGNESIUM OXIDE 400 MG TAB PO PRN (12:30)
[2016-12-25] MEDS ORDERED: POTASSIUM PHOSPHATE MONOBASIC 500 MG TAB PO/TUBE PRN (12:30)
[2016-12-25] MEDS ORDERED: POTASSIUM PHOSPHATE MONOBASIC 500 MG TAB PO PRN (12:30)
[2016-12-25] MEDS ORDERED: MAGNESIUM SULFATE INJ 4 GM in SODIUM CHLORIDE 0.9% INJ 92 ML IV PRN (12:30)
[2016-12-25] MEDS ORDERED: POTASSIUM PHOSPHATE INJ 30 MMOL in SODIUM CHLOR 0.9% 250 ML INJ 250 ML IV PRN (12:30)
[2016-12-25] MEDS: ACETAMINOPHEN/HYDROcodone 325 MG/5 MG TAB PO PRN ×2 (12:43→16:53)
[2016-12-25] MEDS: SODIUM CHLOR 0.45% 1000 ML INJ 1,000 ML IV SCH (12:43)
[2016-12-25] MEDS: LISINOPRIL 5 MG TAB PO SCH ×2 (12:54→20:20)
--- NOTE | 2016-12-25 15:37 | RADRPT ---
EXAM DATE/TIME: 12/25/2016 13:21 [facility] COMPARISON: CT ABDOMEN & PELVIS W CONTRAST, September 24, 2016, 15:59. INDICATIONS : Increased BUN/Creatinine. MEDICAL HISTORY : Hypertension. A-fib. Diabetes. SURGICAL HISTORY : Prostatectomy. ENCOUNTER: Initial ACUITY: 1 week PAIN SCORE: 5/10 LOCATION: Bilateral pelvis MEASUREMENTS: RIGHT KIDNEY: 12.1 x 5.2 x 4.6 cm LEFT KIDNEY: 11.8 x 4.7 x 5.6 cm FINDINGS: RIGHT KIDNEY: Renal cortex is normal in thickness and echotexture. No hydronephrosis, stone, or mass. Parenchymal cyst, anechoic and round, lower pole measuring 11 x 12 mm. There is a parenchymal calcification in t he midpole which measures 8 mm and causes acoustic shadowing. This does not appear to be related to the collecting system. LEFT KIDNEY: Renal cortex is normal in thickness and echotexture. No hydronephrosis, stone, or mass. BLADDER: Stratton catheter in the nondistended urinary bladder. There is soft tissue mass posterior/inferior to the urinary bladder measuring 7.8 x 5.2 x 6.2 cm, suggesting an enlarged prostate, however, there is clinical history of prostatectomy. CONCLUSION: 1. No evidence of hydronephrosis on either side. 2. Greater than 7 cm soft tissue mass in the region of the prostate, but there is a history of prosta tectomy. Edgard Hartman MD on December 25, 2016 at 15:32 Board Certified Radiologist. This report was verified electronically.
[2016-12-25] MEDS: INSULIN ASPART 1,000 UNITS/10 ML VIAL SQ SCH (16:00)
[2016-12-25] MEDS: MECLIZINE HCL 25 MG TAB PO PRN (16:21)
[2016-12-25] MEDS: INSULIN NovoLIN REGULAR SUPPLEMENTAL SCALE SQ SCH ×2 (16:38→20:19)
[2016-12-25] MEDS: SODIUM CHLORIDE 0.9% FLUSH 10 ML FLUSH IV FLUSH SCH (20:19)
[2016-12-25] MEDS: FINASTERIDE 5 MG TAB PO SCH (20:20)
[2016-12-25] MEDS ORDERED: INSULIN DETEMIR 100 UNITS/ML VIAL SQ SCH (21:00)
[2016-12-25] MEDS ORDERED: LISINOPRIL 20 MG TAB PO SCH (21:00)
--- NOTE | 2016-12-25 21:49 | EKG ---
Date Performed: 12/24/2016 Time Performed: 20:35:50 PTAGE: 56 years EKG: Sinus rhythm VOLTAGE CRITERIA FOR LVH NONSPECIFIC T-WAVE ABNORMALITY Since previous tracing, no significant moran e noted ABNORMAL ECG PREVIOUS TRACING : 11/16/2016 15.05 DOCTOR: Jana Weeks Interpretating Date/Time 12/25/2016 21:48:20
[2016-12-26] VITALS (9 sets, daily range): BP systolic 98–128; BP diastolic 59–70; PULSE 67–96; RESP 11–21; TEMP 97.4–98.7; O2SAT 97–100
[2016-12-26] MEDS: SODIUM CHLOR 0.45% 1000 ML INJ 1,000 ML IV SCH ×2 (00:47→19:52)
[2016-12-26] MEDS: INSULIN NovoLIN REGULAR SUPPLEMENTAL SCALE SQ SCH ×5 (02:30→21:00)
[2016-12-26] MEDS: MECLIZINE HCL 25 MG TAB PO PRN (03:07)
[2016-12-26] MEDS: CHLORHEXIDINE GLUCONATE 2 % 1 PACK (2 CLOTHS) TOP SCH (04:00)
[2016-12-26 05:06] LABS: AUTOMATED NEUTROPHIL # 5.6 TH/MM3 (1.8-7.7); BASOPHIL % 0.3 % (0.0-2.0); EOSINOPHIL % 0.5 % (0.0-4.0); HEMATOCRIT 30.6 % (39.0-51.0); HEMO FLAGS DIFF FINAL; LYMPH % 8.1 % (9.0-44.0); LYMPHOCYTE # 0.5 TH/MM3 (1.0-4.8); MEAN CELL VOLUME 87.8 FL (80.0-100.0); MEAN CORPUSCULAR HEMOGLOBIN 28.9 PG (27.0-34.0); MEAN CORPUSCULAR HGB CONC 32.9 % (32.0-36.0); MONO % 5.6 % (0.0-8.0); NEUT % 85.5 % (16.0-70.0); PLATELET COUNT 162 TH/MM3 (150-450); RED BLOOD COUNT 3.49 MIL/MM3 (4.50-5.90); RED CELL DISTRIBUTION WIDTH 16.4 % (11.6-17.2); WHITE BLOOD COUNT 6.6 TH/MM3 (4.0-11.0)
[2016-12-26 05:32] LABS: ALKALINE PHOSPHATASE 76 U/L (45-117); ALT (GPT) 8 U/L (12-78); ANION GAP 10 MEQ/L (5-15); AST (GOT) 24 U/L (15-37); BICARBONATE 22.3 MEQ/L (21.0-32.0); BLOOD UREA NITROGEN 18 MG/DL (7-18); CHLORIDE 115 MEQ/L (98-107); GLOMERULAR FILTRATION RATE 66 ML/MIN (>89); MAGNESIUM 1.9 MG/DL (1.5-2.5); POTASSIUM 4.1 MEQ/L (3.5-5.1); SODIUM (NA) 147 MEQ/L (136-145); TOTAL BILIRUBIN ADULT 0.8 MG/DL (0.2-1.0)
[2016-12-26] MEDS: INSULIN ASPART 1,000 UNITS/10 ML VIAL SQ SCH ×3 (07:00→21:16)
[2016-12-26] MEDS: METOPROLOL TARTRATE 25 MG TAB PO SCH (08:47)
[2016-12-26] MEDS: TAMSULOSIN HCL 0.4 MG CAP PO SCH ×2 (08:47→21:11)
[2016-12-26] MEDS: LISINOPRIL 5 MG TAB PO SCH ×3 (08:47→21:11)
[2016-12-26] MEDS ORDERED: SOD PHOSPHATE/SOD BIPHOSPHATE (ADULT) ENEMA 133ML RECTAL ONE (10:45)
--- NOTE | 2016-12-26 10:49 | PD.CONS ---
[facility] Service Urology Consult Requested By Primary Care Physician No Primary Care Physician Diagnosis: History of Present Illness 56-year-old male well-known to the urology service with history of BPH with obstruction and urinary retention with a chronic indwelling Stratton. He is scheduled undergo suprapubic prostatectomy on January 03, 2017. He was admitted with weakness and lethargy and was found to have a glucose level DCCXX and DKA. According to the chart, he missed a few doses of insulin. He was medically cleared by Dr. Newton to undergo suprapubic prostatectomy. I explained to him that he needs to make sure that these taking his medications because this will delay his surgery. Presently he is complaining of constipation with some nausea. He was also noted to have an elevated creatinine on admission of 2.85 and in acute renal failure. Today's creatinine is down to 1.34. His urine is clear on exam today. I will arrange for his Stratton catheter be changed out during his hospitalization as it was changed 3 weeks ago. Review of Systems ROS Limitations: Clinical Condition Constitutional: DENIES: Diaphoretic episodes Eyes: COMPLAINS OF: Blurred vision Ears, nose, mouth, throat: DENIES: Tinnitus Cardiovascular: DENIES: Chest pain Gastrointestinal: DENIES: Abdominal pain Musculoskeletal: DENIES: Joint pain Integumentary: DENIES: Abnormal pigmentation Hematologic/lymphatic: DENIES: Bruising Immunologic/allergic: DENIES: Eczema Neurologic: DENIES: Abnormal gait Psychiatric: DENIES: Anxiety Except as stated in HPI: all other systems reviewed are Neg Past Family Social History Past Medical History BPH with obstruction and urinary retention Insulin-dependent diabetes mellitus Atrial fibrillation Left eye blindness Vertigo Past Surgical History Cystoscopy Allergies: Coded Allergies: No Known Allergies (Verified , 01/02/17) Family History Family history of prostate cancers noted Social History Denies smoking drinking or using drugs. Physical Exam Vital Signs Date Time Temp Pulse Resp B/P Pulse Ox O2 Delivery O2 Flow Rate FiO2 12/26/16 09:01 99 Room Air 12/26/16 09:01 75 12/26/16 08:00 98.4 72 16 103/60 97 12/26/16 06:00 98.0 68 11 125/65 98 12/26/16 00:00 97.7 67 21 127/61 98 12/25/16 23:00 84 12/25/16 20:00 97.6 82 13 135/69 97 12/25/16 19:00 98 Room Air 12/25/16 16:00 97.8 66 13 153/77 96 12/25/16 15:00 71 Physical Exam GENERAL: This is a well-nourished, well-developed patient, in no apparent distress. SKIN: No rashes, ecchymoses or lesions. Cool and dry. HEAD: Atraumatic. Normocephalic. No temporal or scalp tenderness. EYES: No scleral icterus. No injection or drainage. ENT: Nose without bleeding, purulent drainage or septal hematoma. Throat without erythema, tonsillar hypertrophy or exudate. Uvula midline. Airway patent. NECK: Trachea midline. No JVD or lymphadenopathy. Supple, nontender, no meningeal signs. CARDIOVASCULAR: Regular rate and rhythm without murmurs, gallops, or rubs. RESPIRATORY: Clear to auscultation. Breath sounds equal bilaterally. No wheezes , rales, or rhonchi. GASTROINTESTINAL: Abdomen soft, non-tender, nondistended. No hepato-splenomegaly , or palpable masses. No guarding. GENITOURINARY: Stratton catheter in place and draining clear urine. MUSCULOSKELETAL: Extremities without clubbing, cyanosis, or edema. No joint tenderness, effusion, or edema noted. No calf tenderness. Negative Homans sign bilaterally. NEUROLOGICAL: Awake and alert. Cranial nerves II through XII intact. Motor and sensory grossly within normal limits. Five out of 5 muscle strength in all muscle groups. Normal speech. Laboratory Tests Test 12/25/16 12/26/16 14:00 04:26 Urine Eosinophils NONE SEEN Urine Random Creatinine 78.0 Urine Random Sodium 62 White Blood Count 6.6 Red Blood Count 3.49 Hemoglobin 10.1 Hematocrit 30.6 Mean Corpuscular Volume 87.8 Mean Corpuscular Hemoglobin 28.9 Mean Corpuscular Hemoglobin 32.9 Concent Red Cell Distribution Width 16.4 Platelet Count 162 Mean Platelet Volume 10.3 Neutrophils (%) (Auto) 85.5 Lymphocytes (%) (Auto) 8.1 Monocytes (%) (Auto) 5.6 Eosinophils (%) (Auto) 0.5 Basophils (%) (Auto) 0.3 Neutrophils # (Auto) 5.6 Lymphocytes # (Auto) 0.5 Monocytes # (Auto) 0.4 Eosinophils # (Auto) 0.0 Basophils # (Auto) 0.0 CBC Comment DIFF FINAL Differential Comment Sodium Level 147 Potassium Level 4.1 Chloride Level 115 Carbon Dioxide Level 22.3 Anion Gap 10 Blood Urea Nitrogen 18 Creatinine 1.34 Estimat Glomerular Filtration 66 Rate Random Glucose 156 Calcium Level 9.0 Phosphorus Level 2.0 Magnesium Level 1.9 Total Bilirubin 0.8 Aspartate Amino Transf 24 (AST/SGOT) Alanine Aminotransferase 8 (ALT/SGPT) Alkaline Phosphatase 76 Troponin I LESS THAN 0.02 Total Protein 6.4 Albumin 2.4 Date/Time Procedure Status Source Growth 12/26/16 04:24 Aerobic Blood Culture Received Blood Peripheral Pending 12/26/16 04:24 Anaerobic Blood Culture Received Blood Peripheral Pending 12/25/16 16:45 Influenza Types A,B Antigen ([place]) - Final Complete Nasal Aspirate NEGATIVE FOR FLU A AND B ANTIGEN.... Result Diagram: 12/26/16 0426 12/26/16 0426 Imaging Last Impressions Renal Ultrasound 12/25/16 0000 Signed Impressions: Service Date/Time: Sunday, December 25, 2016 13:21 - CONCLUSION: 1. No evidence of hydronephrosis on either side. 2. Greater than 7 cm soft tissue mass in the region of the prostate, but there is a history of prostatectomy. Edgard Hartman MD Chest X-Ray 12/24/162006 Signed Impressions: Service Date/Time: Saturday, December 24, 2016 20:23 - CONCLUSION: No evidence of acute cardiopulmonary disease. Ventura Jacob MD Assessment and Plan Assessment and Plan 56-year-old male with history of BPH with obstruction and urinary retention admitted with DKA. Will change Stratton catheter out today. Treat constipation. Glucose now is better controlled and acute renal failure is resolving. Patient scheduled for suprapubic prostatectomy on January 03 pending resolution of DKA and better diabetic control. Patient explained the importance of taking his medications and is noncompliant surgery will need to be postponed near future. Tanner Rene DO Dec 26, 2016 10:49
[2016-12-26] MEDS ORDERED: POLYETHYLENE GLYCOL 17 GM PKG PO ONE (13:45)
--- NOTE | 2016-12-26 13:51 | HHI.PR ---
Subjective Remarks Follow-up for DKA Patient continues to have abdominal pain that has improved. Denying nausea vomiting. Patient seems to be having more pain while eating solid food. Dealt with patient's nurse. Patient stated that at home he was taking Levemir 15 units at night, 10 units of NovoLog in the morning. He stated that for his dinner and lunch she was on the insulin signs scope and never had to use it. Patient stated that he did run out of his insulin. Objective Vitals Vital Signs Date Time Temp Pulse Resp B/P Pulse Ox O2 Delivery O2 Flow Rate FiO2 12/26/16 09:01 99 Room Air 12/26/16 09:01 75 12/26/16 08:00 98.4 72 16 103/60 97 12/26/16 06:00 98.0 68 11 125/65 98 12/26/16 00:00 97.7 67 21 127/61 98 12/25/16 23:00 84 12/25/16 20:00 97.6 82 13 135/69 97 12/25/16 19:00 98 Room Air 12/25/16 16:00 97.8 66 13 153/77 96 12/25/16 15:00 71 I/O 12/25/16 12/25/16 12/25/16 12/26/16 12/26/16 12/26/16 07:00 15:00 23:00 07:00 15:00 23:00 Intake Total 2640 ml 2552 ml 841 ml Output Total 1100 ml 700 ml 475 ml Balance 1540 ml 1852 ml 366 ml Intake Oral 640 ml 720 ml 240 ml IV Total 2000 ml 1832 ml 601 ml Output Urine Total 1100 ml 700 ml 475 ml Stool Total 0 ml 0 ml 0 ml Result Diagram: 12/26/16 0426 12/26/16 0426 Objective Remarks GENERAL: in NAD CARDIOVASCULAR: Regular rate and rhythm without murmurs, gallops, or rubs. RESPIRATORY: Breath sounds equal bilaterally. No accessory muscle use. GASTROINTESTINAL: Abdomen soft, + TTP in the epigastric area, nondistended. MUSCULOSKELETAL: No cyanosis, or edema. BACK: Nontender without obvious deformity. No CVA tenderness. Medications and IVs Current Medications Sodium Chloride 1,000 ml @ 2,000 mls/hr Q30M ONCE IV Last administered on t 20:49; Start 12/24/16 at 20:07; Stop 12/24/16 at 20:36; Status DC Sodium Chloride (NS 1000 ml Inj) 1,000 ml @ 2,000 mls/hr Q30M ONCE IV Last administered on 12/24/16 20:50; Start 12/24/16 at 20:37; Stop 12/24/16 at 21:06; Status DC Sodium Chloride (NS Flush) 2 ml UNSCH PRN IVF FLUSH AFTER USING IV ACCESS; Start 12/24/16 at 20:15; Stop 12/24/16 at 22:43; Status DC Insulin Human Regular 10 units 10 units ONCE ONCE IV PUSH Last administered on 12/24/16 21:09; Start 12/24/16 at 20:15; Stop 12/24/16 at 20:16; Status DC Sodium Chloride 1,000 ml @ 250 mls/hr Q4H IV ; Start 12/24/16 at 21:31; Stop 12/24/16 at 22:43; Status DC Dextrose/Sodium Chloride 1,000 ml @ 200 mls/hr Q5H IV ; Start 12/24/16 at 21:31 ; Stop 12/24/16 at 22:43; Status DC Insulin Human Regular 100 units/ Sodium Chloride 100 ml @ 0 mls/hr TITRATE IV ; Start 12/24/16 at 21:45; Stop 12/24/16 at 22:43; Status DC Potassium Chloride 100 ml @ 100 mls/hr Q1H PRN IV SEE LABEL COMMENTS; Start at 21:45; Stop 12/24/16 at 22:43; Status DC Potassium Chloride 100 ml @ 50 mls/hr Q2H PRN IV SEE LABEL COMMENTS; Start 12/24/16 at 21:45; Stop 12/24/16 at 22:43; Status DC Potassium Chloride 100 ml @ 100 mls/hr Q1H PRN IV SEE LABEL COMMENTS; Start at 21:45; Stop 12/24/16 at 22:43; Status DC Potassium Chloride 100 ml @ 100 mls/hr Q1H PRN IV SEE LABEL COMMENTS; Start at 21:45; Stop 12/24/16 at 22:43; Status DC Potassium Chloride 100 ml @ 50 mls/hr Q2H PRN IV SEE LABEL COMMENTS; Start 12/24/16 at 21:45; Stop 12/24/16 at 22:43; Status DC Potassium Chloride 100 ml @ 50 mls/hr Q2H PRN IV SEE LABEL COMMENTS; Start 12/24/16 at 21:45; Stop 12/24/16 at 22:43; Status DC Potassium Chloride 100 ml @ 50 mls/hr Q2H PRN IV SEE LABEL COMMENTS; Start 12/24/16 at 21:45; Stop 12/24/16 at 22:43; Status DC Potassium Chloride (KCl 20 Meq Premix Inj) 100 ml @ 50 mls/hr Q2H PRN IV SEE LABEL COMMENTS; Start 12/24/16 at 21:45; Stop 12/24/16 at 22:43; Status DC Sodium Bicarbonate (Sodium Bicarbonate 8.4% Inj) 100 meq UNSCH PRN IV SEE LABEL COMMENTS; Start 12/24/16 at 21:45; Stop 12/24/16 at 22:43; Status DC Sodium Bicarbonate 50 meq 50 meq UNSCH PRN IV SEE LABEL COMMENTS; Start at 21:45; Stop 12/24/16 at 22:43; Status DC Sodium Phosphate 15 mmol/Sodium Chloride 105 ml @ 25 mls/hr UNSCH PRN IV SEE LABEL COMMENTS; Start 12/24/16 at 21:45; Stop 12/24/16 at 22:43; Status DC Sodium Chloride 1,000 ml @ 999 mls/hr BOLUS ONCE IV Last administered on 22:53; Start 12/24/16 at 21:45; Stop 12/24/16 at 22:48; Status DC Sodium Chloride 1,000 ml @ 1,000 mls/hr Q1H IV Last administered on 12/25/16 00:05; Start 12/24/16 at 22:38; Stop 12/25/16 at 00:37; Status DC Sodium Chloride 1,000 ml @ 250 mls/hr Q4H IV ; Start 12/24/16 at 22:38; Stop 12/25/16 at 12:21; Status DC Dextrose/Sodium Chloride 1,000 ml @ 200 mls/hr Q5H IV Last administered on 12/25 05:11; Start 12/24/16 at 22:38; Stop 12/25/16 at 12:21; Status DC Insulin Human Regular 100 units/ Sodium Chloride 100 ml @ 0 mls/hr TITRATE IV Last administered on 12/24/16t 23:07; Start 12/24/16 at 22:45; Stop 12/25/16 at 12: 21; Status DC Potassium Chloride 100 ml @ 100 mls/hr Q1H PRN IV SEE LABEL COMMENTS; Start at 22:45; Stop 12/25/16 at 12:21; Status DC Potassium Chloride 100 ml @ 50 mls/hr Q2H PRN IV SEE LABEL COMMENTS; Start 12/24/16 at 22:45; Stop 12/25/16 at 12:21; Status DC Potassium Chloride 100 ml @ 100 mls/hr Q1H PRN IV SEE LABEL COMMENTS; Start at 22:45; Stop 12/25/16 at 12:22; Status DC Potassium Chloride 100 ml @ 100 mls/hr Q1H PRN IV SEE LABEL COMMENTS; Start at 22:45; Stop 12/25/16 at 12:22; Status DC Potassium Chloride 100 ml @ 50 mls/hr Q2H PRN IV SEE LABEL COMMENTS; Start 12/24/16 at 22:45; Stop 12/25/16 at 12:22; Status DC Potassium Chloride 100 ml @ 50 mls/hr Q2H PRN IV SEE LABEL COMMENTS; Start 12/24/16 at 22:45; Stop 12/25/16 at 12:22; Status DC Potassium Chloride 100 ml @ 50 mls/hr Q2H PRN IV SEE LABEL COMMENTS; Start 12/24/16 at 22:45; Stop 12/25/16 at 12:22; Status DC Potassium Chloride (KCl 20 Meq Premix Inj) 100 ml @ 50 mls/hr Q2H PRN IV SEE LABEL COMMENTS; Start 12/24/16 at 22:45; Stop 12/25/16 at 12:23; Status DC Sodium Bicarbonate (Sodium Bicarbonate 8.4% Inj) 100 meq UNSCH PRN IV SEE LABEL COMMENTS; Start 12/24/16 at 22:45; Stop 12/25/16 at 12:23; Status DC Sodium Bicarbonate 50 meq 50 meq UNSCH PRN IV SEE LABEL COMMENTS; Start at 22:45; Stop 12/25/16 at 12:23; Status DC Sodium Phosphate/ Sodium Chloride (Sodium Phosphate Inj/NS Inj) 105 ml @ 25 mls /hr UNSCH PRN IV SEE LABEL COMMENTS; Start 12/24/16 at 22:45 Miscellaneous Information 1 Q361D XX ; Start 12/24/16 at 22:45; Stop 12/25/16 at 12:38; Status DC Chlorhexidine Gluconate (Chlorhexidine 2% Cloth) 3 pack Taper DAILY@04 TOP Last administered on 12/25/16 04:00; Start 12/25/16 at 04:00; Stop 12/25/16 at 12: 38; Status DC Chlorhexidine Gluconate (Chlorhexidine 2% Cloth) 3 pack UNSCH PRN TOP HYGIENIC CARE; Start 12/24/16 at 22:45; Stop 12/25/16 at 12:38; Status DC Finasteride (Proscar) 5 mg HS PO Last administered on 12/25/16 20:20; Start 12/25/16 at 21:00 Lisinopril (Prinivil) 20 mg HS PO ; Start 12/25/16 at 21:00; Stop 12/25/16 at 21: 00; Status DC Meclizine HCl (Antivert) 25 mg TID PRN PO VERTIGO Last administered on 03:07; Start 12/25/16 at 03:30 Metoprolol Tartrate (Lopressor) 25 mg DAILY PO Last administered on 12/26/16 08 :47; Start 12/25/16 at 09:00 Tamsulosin HCl 0.4 mg 0.4 mg BID PO Last administered on 12/26/16 08:47; Start 12/25/16 at 09:00 Sodium Chloride (NS 1000 ml Inj) 1,000 ml @ 84 mls/hr [id number] IV ; Start at 12:16; Stop 12/25/16 at 12:26; Status DC Sodium Chloride (NS Flush) 2 ml UNSCH PRN IV FLUSH FLUSH AFTER USING IV ACCESS ; Start 12/25/16 at 12:30 Sodium Chloride (NS Flush) 2 ml BID IV FLUSH ; Start 12/25/16 at 21:00 Acetaminophen (Tylenol) 650 mg Q6H PRN PO FEVER >101F; Start 12/25/16 at 12:30 Acetaminophen/ Hydrocodone Bitart ([place] 5-325 Mg) 1 tab Q4H PRN PO PAIN SCALE 1 TO 5 Last administered on 12/25/16 16:53; Start 12/25/16 at 12:30 Morphine Sulfate (Morphine Inj) 2 mg Q2H PRN IV PAIN SCALE 6 TO 10 Last administered on 12/25/16 16:21; Start 12/25/16 at 12:30 Miscellaneous Information 1 Q361D XX Last administered on 12/25/16 12:30; Start 12/25/16 at 12:30 Chlorhexidine Gluconate (Chlorhexidine 2% Cloth) 3 pack Taper DAILY@04 TOP Last administered on 12/26/16 04:00; Start 12/26/16 at 04:00; Stop 12/22/17 at 03: 59 Chlorhexidine Gluconate 3 pack 3 pack UNSCH PRN TOP HYGIENIC CARE; Start at 12:30 Potassium Chloride 100 ml @ 50 mls/hr Q2H PRN IV For Potassium 2.8 - 3.2 mEq/L ; Start 12/25/16 at 12:30 Potassium Chloride (KCl 20 Meq Premix Inj) 100 ml @ 50 mls/hr Q2H PRN IV For Potassium 2.8 - 3.2 mEq/L; Start 12/25/16 at 12:30 Potassium Bicarb/ Potassium Chloride 50 meq 50 meq UNSCH PRN PO For Potassium 3.3 - 3.5 mEq/L; Start 12/25/16 at 12:30 Potassium Chloride 100 ml @ 25 mls/hr UNSCH PRN IV For Potassium 3.3 - 3.5 mEq /L; Start 12/25/16 at 12:30 Potassium Chloride 100 ml @ 50 mls/hr Q2H PRN IV For Potassium 3.3 - 3.5 mEq/L ; Start 12/25/16 at 12:30 Magnesium Sulfate/ Sodium Chloride (Magnesium Sulfate Inj/NS Inj) 100 ml @ 50 mls/hr UNSCH PRN IV For Magnesium 0.9 - 1.1 mg/dL; Start 12/25/16 at 12:30 Magnesium Oxide 800 mg 800 mg UNSCH PRN PO For Magnesium 1.2 - 1.6 mg/dL; Start 12/25/16 at 12:30 Magnesium Sulfate/ Sodium Chloride (Magnesium Sulfate Inj/NS Inj) 100 ml @ 50 mls/hr UNSCH PRN IV For Magnesium 1.2 - 1.6 mg/dL; Start 12/25/16 at 12:30 Potassium Phosphate 2000 mg 2,000 mg Q4H PRN PO For Phosphorus < 2.5 mg/dL; Start 12/25/16 at 12:30 Sodium Phosphate/ Sodium Chloride (Sodium Phosphate Inj/NS 250 ml Inj) 250 ml @ 42 mls/hr UNSCH PRN IV For Phosphorus < 2.5 mg/dL; Start 12/25/16 at 12:30 Potassium Phosphate 2000 mg 2,000 mg UNSCH PRN PO/TUBE SEE LABEL COMMENTS; Start 12/25/16 at 12:30 Potassium Phosphate/Sodium Chloride (Potassium Phosphate Inj/NS 250 ml Inj) 260 ml @ 42 mls/hr UNSCH PRN IV SEE LABEL COMMENTS; Start 12/25/16 at 12:30; Stop 12/25/16 at 12:37; Status DC Insulin Detemir (Levemir Inj) 10 units HS SQ ; Start 12/25/16 at 21:00 Insulin Human Regular (NovoLIN R INJ) 10 units ONCE ONCE SQ Last administered on 12/25/16 12:56; Start 12/25/16 at 12:30; Stop 12/25/16 at 12:43; Status DC Dextrose (D50w (Vial) Inj) 50 ml UNSCH PRN IV HYPOGLYCEMIA-SEE COMMENTS; Start 12/25/16 at 12:30 Glucagon (Glucagon Inj) 1 mg UNSCH PRN OTHER HYPOGLYCEMIA-SEE COMMENTS; Start 12/25/16 at 12:30 Insulin Human Regular (NovoLIN R SUPPLEMENTAL SCALE) 1 ACHS AND 3AM SQ Last administered on 12/26/16 12:34; Start 12/25/16 at 16:00 Insulin Aspart 20 units 20 units BIDAC SQ BSM Last administered on 12/25/16 16: 00; Start 12/25/16 at 16:00 Sodium Chloride (1/2 NS 1000 ml Inj) 1,000 ml @ 84 mls/hr [id number] IV Last administered on 12/26/16 00:47; Start 12/25/16 at 12:30 Hydralazine HCl (Apresoline Inj) 10 mg Q1HR PRN IV PUSH SBP>160, DBP>90; Start 12/25/16 at 12:30 Labetalol HCl (Trandate Inj) 10 mg Q1HR PRN IV PUSH SBP>160, DBP>90, HR>65; Start 12/25/16 at 12:30 Nitroglycerin (Nitroglycerin 2% Oint) 2 inch Q6HR PRN TOPICAL SBP>160, DBP>90; Start 12/25/16 at 12:30 Lisinopril (Prinivil) 5 mg Q12HR PO Last administered on 12/25/16t 20:20; Start 12/25/16 at 12:30 Sodium Biphosphate/ Sodium Phosphate (Fleets Enema (Adult)) 133 ml ONCE ONCE RECTAL ; Start 12/26/16 at 10:45; Stop 12/26/16 at 11:00; Status DC A/P Assessment and Plan 56-year-old male who presented with fatigue and abdominal pain found to have DKA. DKA -Patient was put on DKA protocol. He was weaned successfully off the insulin drip. Patient was transitioned to subcutaneous insulin. Currently he is on Levemir 10 units at night and NovoLog 20 units twice a day. -At home patient takes 15 units of Levemir at night 15 units of NovoLog in the morning with insulin sliding scale that he really use. -Patient seems to not understand how insulin works. Will consult para educator and dietitian. -We will make changes with insulin so that he gets around 50% long-acting and 50 % short acting. Will change Levemir to 10 units twice a day and NovoLog 5 units before meals. Will continue with insulin sliding scale. -Educated patient extensively on the use of insulin and compliance. History of hypertension -Patient on metoprolol 25 mg by mouth twice a day. - He was started on a low dose of lisinopril 5 mg. His home dose of lisinopril 20 mg by mouth daily was held due to acute kidney injury. Severe BPH - on Tamsulosin and Finasteride -Dr. Rene, urologist is following. He change his [place] today. -Per Dr. Rene patient is scheduled for suprapubic prostatectomy on January 03 pending resolution of DKA and better diabetic control. Acute kidney injury -Due to dehydration from uncontrolled diabetes. -Improving. -Continue to monitor and avoid nephrotoxins. Strict ins and outs. Leukocytosis/Anemia -Stable and improved. Pseudohyponatremia secondary to hyperglycemia Hyperkalemia -Resolved. DVT prophylaxis - Subcutaneous heparin GI prophylaxis Pepcid Discharge Planning Patient is medically stable to be transferred out of the [facility]. Mavis Whyte MD Dec 26, 2016 13:51 MSK: PT evaluate and treat FEN: Pseudohyponatremia secondary to hyperglycemia Hyperkalemia Monitor BMP DVT prophylaxis - Subcutaneous heparin GI prophylaxis Pepcid Critical Care: The total care time was 25 minutes. Time to perform other separately billable procedures was not included in the critical care time. Level II Transfer to hospitalist service a.m. 12/26 Jose De Jesus Vergara MD, Lydia Thuy MD Dec 26, 2016 13:51
[2016-12-26] MEDS: DOCUSATE SODIUM 100 MG CAP PO SCH ×2 (14:27→21:11)
[2016-12-26 17:33] LABS: HEMOGLOBIN Ao 51.2 %; HEMOGLOBIN F 2.2 %; HEMOGLOBIN LA1C 1.1 %
[2016-12-26] MEDS: SODIUM CHLORIDE 0.9% FLUSH 10 ML FLUSH IV FLUSH SCH (19:52)
[2016-12-26] MEDS: FINASTERIDE 5 MG TAB PO SCH (21:11)
[2016-12-26] MEDS: INSULIN DETEMIR 100 UNITS/ML VIAL SQ SCH (21:15)
[2016-12-27] VITALS: BP 108/60; PULSE 98; RESP 18; TEMP 97.1; O2SAT 98
[2016-12-27] MEDS: SODIUM CHLOR 0.45% 1000 ML INJ 1,000 ML IV SCH ×2 (00:15→12:10)
[2016-12-27] MEDS: ACETAMINOPHEN/HYDROcodone 325 MG/5 MG TAB PO PRN (02:32)
[2016-12-27] MEDS: INSULIN NovoLIN REGULAR SUPPLEMENTAL SCALE SQ SCH ×5 (02:40→21:17)
[2016-12-27 04:00] VITALS: BP 100/52; PULSE 83; RESP 18; TEMP 97.7; O2SAT 97
[2016-12-27] MEDS: CHLORHEXIDINE GLUCONATE 2 % 1 PACK (2 CLOTHS) TOP SCH (04:00)
[2016-12-27 06:15] LABS: MEAN CELL VOLUME 87.2 FL (80.0-100.0); MEAN CORPUSCULAR HEMOGLOBIN 28.8 PG (27.0-34.0); MEAN CORPUSCULAR HGB CONC 33.1 % (32.0-36.0); PLATELET COUNT 136 TH/MM3 (150-450); RED BLOOD COUNT 3.21 MIL/MM3 (4.50-5.90); RED CELL DISTRIBUTION WIDTH 16.7 % (11.6-17.2); REVIEW FLAG FINAL; WHITE BLOOD COUNT 4.9 TH/MM3 (4.0-11.0)
[2016-12-27 06:53] LABS: BICARBONATE 22.6 MEQ/L (21.0-32.0); POTASSIUM 3.2 MEQ/L (3.5-5.1)
[2016-12-27 08:00] VITALS: BP 94/54; PULSE 78; RESP 16; TEMP 98; O2SAT 98
[2016-12-27] MEDS: METOPROLOL TARTRATE 25 MG TAB PO SCH (09:00)
[2016-12-27] MEDS: LISINOPRIL 5 MG TAB PO SCH (09:00)
[2016-12-27] MEDS ORDERED: POTASSIUM CHLORIDE 10 MEQ CONTROLLED RELEASE TAB PO ONE (09:00)
[2016-12-27] MEDS: SODIUM CHLORIDE 0.9% FLUSH 10 ML FLUSH IV FLUSH SCH ×2 (09:00→21:11)
[2016-12-27] MEDS: INSULIN ASPART 1,000 UNITS/10 ML VIAL SQ SCH ×4 (09:31→21:28)
[2016-12-27] MEDS: INSULIN DETEMIR 100 UNITS/ML VIAL SQ SCH ×2 (09:31→21:17)
[2016-12-27] MEDS: TAMSULOSIN HCL 0.4 MG CAP PO SCH ×2 (09:34→21:11)
[2016-12-27] MEDS: DOCUSATE SODIUM 100 MG CAP PO SCH ×2 (09:34→21:11)
[2016-12-27] MEDS: MECLIZINE HCL 25 MG TAB PO PRN (09:37)
--- NOTE | 2016-12-27 09:52 | HHI.PR ---
Subjective Remarks f/u for DKA patient upset with his diet order. He stated he hasnt been eating much because he is unhappy with the menu. patient stated he has not been ambulating much because he feels weak. he stated he does not feel comfortable going home today. He stated that he does not have any help at home and that his sister will come down next week to help him. remains afebrile. Objective Vitals Vital Signs Date Time Temp Pulse Resp B/P Pulse Ox O2 Delivery O2 Flow Rate FiO2 12/27/16 04:00 97.7 83 18 100/52 97 12/27/16 00:00 97.1 98 18 108/60 98 12/26/16 23:30 96 12/26/16 20:00 97.4 86 18 128/70 100 12/26/16 20:00 100 Room Air 12/26/16 20:00 77 12/26/16 17:42 79 12/26/16 16:00 98.4 77 18 111/60 98 12/26/16 12:00 98.7 80 18 98/59 97 I/O 12/26/16 12/26/16 12/26/16 12/27/16 12/27/16 12/27/16 07:00 15:00 23:00 07:00 15:00 23:00 Intake Total 841 ml 460 ml 1559 ml 928 ml Output Total 475 ml 850 ml 700 ml 425 ml Balance 366 ml -390 ml 859 ml 503 ml Intake Oral 240 ml 780 ml 240 ml IV Total 601 ml 460 ml 779 ml 688 ml Output Urine Total 475 ml 850 ml 700 ml 425 ml Stool Total 0 ml # Bowel Movements 1 0 Result Diagram: 12/27/16 0556 12/27/16 0556 Objective Remarks GENERAL: in NAD CARDIOVASCULAR: Regular rate and rhythm without murmurs, gallops, or rubs. RESPIRATORY: Breath sounds equal bilaterally. No accessory muscle use. GASTROINTESTINAL: Abdomen soft, + TTP in the epigastric area, nondistended. MUSCULOSKELETAL: No cyanosis, or edema. BACK: Nontender without obvious deformity. No CVA tenderness. Medications and IVs Current Medications Sodium Chloride 1,000 ml @ 2,000 mls/hr Q30M ONCE IV Last administered on t 20:49; Start 12/24/16 at 20:07; Stop 12/24/16 at 20:36; Status DC Sodium Chloride (NS 1000 ml Inj) 1,000 ml @ 2,000 mls/hr Q30M ONCE IV Last administered on 12/24/16 20:50; Start 12/24/16 at 20:37; Stop 12/24/16 at 21:06; Status DC Sodium Chloride (NS Flush) 2 ml UNSCH PRN IVF FLUSH AFTER USING IV ACCESS; Start 12/24/16 at 20:15; Stop 12/24/16 at 22:43; Status DC Insulin Human Regular 10 units 10 units ONCE ONCE IV PUSH Last administered on 12/24/16 21:09; Start 12/24/16 at 20:15; Stop 12/24/16 at 20:16; Status DC Sodium Chloride 1,000 ml @ 250 mls/hr Q4H IV ; Start 12/24/16 at 21:31; Stop 12/24/16 at 22:43; Status DC Dextrose/Sodium Chloride 1,000 ml @ 200 mls/hr Q5H IV ; Start 12/24/16 at 21:31 ; Stop 12/24/16 at 22:43; Status DC Insulin Human Regular 100 units/ Sodium Chloride 100 ml @ 0 mls/hr TITRATE IV ; Start 12/24/16 at 21:45; Stop 12/24/16 at 22:43; Status DC Potassium Chloride 100 ml @ 100 mls/hr Q1H PRN IV SEE LABEL COMMENTS; Start at 21:45; Stop 12/24/16 at 22:43; Status DC Potassium Chloride 100 ml @ 50 mls/hr Q2H PRN IV SEE LABEL COMMENTS; Start 12/24/16 at 21:45; Stop 12/24/16 at 22:43; Status DC Potassium Chloride 100 ml @ 100 mls/hr Q1H PRN IV SEE LABEL COMMENTS; Start at 21:45; Stop 12/24/16 at 22:43; Status DC Potassium Chloride 100 ml @ 100 mls/hr Q1H PRN IV SEE LABEL COMMENTS; Start at 21:45; Stop 12/24/16 at 22:43; Status DC Potassium Chloride 100 ml @ 50 mls/hr Q2H PRN IV SEE LABEL COMMENTS; Start 12/24/16 at 21:45; Stop 12/24/16 at 22:43; Status DC Potassium Chloride 100 ml @ 50 mls/hr Q2H PRN IV SEE LABEL COMMENTS; Start 12/24/16 at 21:45; Stop 12/24/16 at 22:43; Status DC Potassium Chloride 100 ml @ 50 mls/hr Q2H PRN IV SEE LABEL COMMENTS; Start 12/24/16 at 21:45; Stop 12/24/16 at 22:43; Status DC Potassium Chloride (KCl 20 Meq Premix Inj) 100 ml @ 50 mls/hr Q2H PRN IV SEE LABEL COMMENTS; Start 12/24/16 at 21:45; Stop 12/24/16 at 22:43; Status DC Sodium Bicarbonate (Sodium Bicarbonate 8.4% Inj) 100 meq UNSCH PRN IV SEE LABEL COMMENTS; Start 12/24/16 at 21:45; Stop 12/24/16 at 22:43; Status DC Sodium Bicarbonate 50 meq 50 meq UNSCH PRN IV SEE LABEL COMMENTS; Start at 21:45; Stop 12/24/16 at 22:43; Status DC Sodium Phosphate 15 mmol/Sodium Chloride 105 ml @ 25 mls/hr UNSCH PRN IV SEE LABEL COMMENTS; Start 12/24/16 at 21:45; Stop 12/24/16 at 22:43; Status DC Sodium Chloride 1,000 ml @ 999 mls/hr BOLUS ONCE IV Last administered on 22:53; Start 12/24/16 at 21:45; Stop 12/24/16 at 22:48; Status DC Sodium Chloride 1,000 ml @ 1,000 mls/hr Q1H IV Last administered on 12/25/16 00:05; Start 12/24/16 at 22:38; Stop 12/25/16 at 00:37; Status DC Sodium Chloride 1,000 ml @ 250 mls/hr Q4H IV ; Start 12/24/16 at 22:38; Stop 12/25/16 at 12:21; Status DC Dextrose/Sodium Chloride 1,000 ml @ 200 mls/hr Q5H IV Last administered on 12/25 05:11; Start 12/24/16 at 22:38; Stop 12/25/16 at 12:21; Status DC Insulin Human Regular 100 units/ Sodium Chloride 100 ml @ 0 mls/hr TITRATE IV Last administered on 12/24/16t 23:07; Start 12/24/16 at 22:45; Stop 12/25/16 at 12: 21; Status DC Potassium Chloride 100 ml @ 100 mls/hr Q1H PRN IV SEE LABEL COMMENTS; Start at 22:45; Stop 12/25/16 at 12:21; Status DC Potassium Chloride 100 ml @ 50 mls/hr Q2H PRN IV SEE LABEL COMMENTS; Start 12/24/16 at 22:45; Stop 12/25/16 at 12:21; Status DC Potassium Chloride 100 ml @ 100 mls/hr Q1H PRN IV SEE LABEL COMMENTS; Start at 22:45; Stop 12/25/16 at 12:22; Status DC Potassium Chloride 100 ml @ 100 mls/hr Q1H PRN IV SEE LABEL COMMENTS; Start at 22:45; Stop 12/25/16 at 12:22; Status DC Potassium Chloride 100 ml @ 50 mls/hr Q2H PRN IV SEE LABEL COMMENTS; Start 12/24/16 at 22:45; Stop 12/25/16 at 12:22; Status DC Potassium Chloride 100 ml @ 50 mls/hr Q2H PRN IV SEE LABEL COMMENTS; Start 12/24/16 at 22:45; Stop 12/25/16 at 12:22; Status DC Potassium Chloride 100 ml @ 50 mls/hr Q2H PRN IV SEE LABEL COMMENTS; Start 12/24/16 at 22:45; Stop 12/25/16 at 12:22; Status DC Potassium Chloride (KCl 20 Meq Premix Inj) 100 ml @ 50 mls/hr Q2H PRN IV SEE LABEL COMMENTS; Start 12/24/16 at 22:45; Stop 12/25/16 at 12:23; Status DC Sodium Bicarbonate (Sodium Bicarbonate 8.4% Inj) 100 meq UNSCH PRN IV SEE LABEL COMMENTS; Start 12/24/16 at 22:45; Stop 12/25/16 at 12:23; Status DC Sodium Bicarbonate 50 meq 50 meq UNSCH PRN IV SEE LABEL COMMENTS; Start at 22:45; Stop 12/25/16 at 12:23; Status DC Sodium Phosphate/ Sodium Chloride (Sodium Phosphate Inj/NS Inj) 105 ml @ 25 mls /hr UNSCH PRN IV SEE LABEL COMMENTS; Start 12/24/16 at 22:45 Miscellaneous Information 1 Q361D XX ; Start 12/24/16 at 22:45; Stop 12/25/16 at 12:38; Status DC Chlorhexidine Gluconate (Chlorhexidine 2% Cloth) 3 pack Taper DAILY@04 TOP Last administered on 12/25/16 04:00; Start 12/25/16 at 04:00; Stop 12/25/16 at 12: 38; Status DC Chlorhexidine Gluconate (Chlorhexidine 2% Cloth) 3 pack UNSCH PRN TOP HYGIENIC CARE; Start 12/24/16 at 22:45; Stop 12/25/16 at 12:38; Status DC Finasteride (Proscar) 5 mg HS PO Last administered on 12/26/16 21:11; Start 12/25/16 at 21:00 Lisinopril (Prinivil) 20 mg HS PO ; Start 12/25/16 at 21:00; Stop 12/25/16 at 21: 00; Status DC Meclizine HCl (Antivert) 25 mg TID PRN PO VERTIGO Last administered on 03:07; Start 12/25/16 at 03:30 Metoprolol Tartrate (Lopressor) 25 mg DAILY PO Last administered on 12/26/16 08 :47; Start 12/25/16 at 09:00 Tamsulosin HCl 0.4 mg 0.4 mg BID PO Last administered on 12/26/16 21:11; Start 12/25/16 at 09:00 Sodium Chloride (NS 1000 ml Inj) 1,000 ml @ 84 mls/hr [id number] IV ; Start at 12:16; Stop 12/25/16 at 12:26; Status DC Sodium Chloride (NS Flush) 2 ml UNSCH PRN IV FLUSH FLUSH AFTER USING IV ACCESS ; Start 12/25/16 at 12:30 Sodium Chloride (NS Flush) 2 ml BID IV FLUSH ; Start 12/25/16 at 21:00 Acetaminophen (Tylenol) 650 mg Q6H PRN PO FEVER >101F; Start 12/25/16 at 12:30 Acetaminophen/ Hydrocodone Bitart ([place] 5-325 Mg) 1 tab Q4H PRN PO PAIN SCALE 1 TO 5 Last administered on 12/27/16 02:32; Start 12/25/16 at 12:30 Morphine Sulfate (Morphine Inj) 2 mg Q2H PRN IV PAIN SCALE 6 TO 10 Last administered on 12/25/16 16:21; Start 12/25/16 at 12:30 Miscellaneous Information 1 Q361D XX Last administered on 12/25/16 12:30; Start 12/25/16 at 12:30 Chlorhexidine Gluconate (Chlorhexidine 2% Cloth) 3 pack Taper DAILY@04 TOP Last administered on 12/26/16 04:00; Start 12/26/16 at 04:00; Stop 12/22/17 at 03: 59 Chlorhexidine Gluconate 3 pack 3 pack UNSCH PRN TOP HYGIENIC CARE; Start at 12:30 Potassium Chloride 100 ml @ 50 mls/hr Q2H PRN IV For Potassium 2.8 - 3.2 mEq/L ; Start 12/25/16 at 12:30 Potassium Chloride (KCl 20 Meq Premix Inj) 100 ml @ 50 mls/hr Q2H PRN IV For Potassium 2.8 - 3.2 mEq/L; Start 12/25/16 at 12:30 Potassium Bicarb/ Potassium Chloride 50 meq 50 meq UNSCH PRN PO For Potassium 3.3 - 3.5 mEq/L; Start 12/25/16 at 12:30 Potassium Chloride 100 ml @ 25 mls/hr UNSCH PRN IV For Potassium 3.3 - 3.5 mEq /L; Start 12/25/16 at 12:30 Potassium Chloride 100 ml @ 50 mls/hr Q2H PRN IV For Potassium 3.3 - 3.5 mEq/L ; Start 12/25/16 at 12:30 Magnesium Sulfate/ Sodium Chloride (Magnesium Sulfate Inj/NS Inj) 100 ml @ 50 mls/hr UNSCH PRN IV For Magnesium 0.9 - 1.1 mg/dL; Start 12/25/16 at 12:30 Magnesium Oxide 800 mg 800 mg UNSCH PRN PO For Magnesium 1.2 - 1.6 mg/dL; Start 12/25/16 at 12:30 Magnesium Sulfate/ Sodium Chloride (Magnesium Sulfate Inj/NS Inj) 100 ml @ 50 mls/hr UNSCH PRN IV For Magnesium 1.2 - 1.6 mg/dL; Start 12/25/16 at 12:30 Potassium Phosphate 2000 mg 2,000 mg Q4H PRN PO For Phosphorus < 2.5 mg/dL; Start 12/25/16 at 12:30 Sodium Phosphate/ Sodium Chloride (Sodium Phosphate Inj/NS 250 ml Inj) 250 ml @ 42 mls/hr UNSCH PRN IV For Phosphorus < 2.5 mg/dL; Start 12/25/16 at 12:30 Potassium Phosphate 2000 mg 2,000 mg UNSCH PRN PO/TUBE SEE LABEL COMMENTS; Start 12/25/16 at 12:30 Potassium Phosphate/Sodium Chloride (Potassium Phosphate Inj/NS 250 ml Inj) 260 ml @ 42 mls/hr UNSCH PRN IV SEE LABEL COMMENTS; Start 12/25/16 at 12:30; Stop 12/25/16 at 12:37; Status DC Insulin Detemir (Levemir Inj) 10 units HS SQ ; Start 12/25/16 at 21:00; Stop 12/26 at 13:44; Status DC Insulin Human Regular (NovoLIN R INJ) 10 units ONCE ONCE SQ Last administered on 12/25/16 12:56; Start 12/25/16 at 12:30; Stop 12/25/16 at 12:43; Status DC Dextrose (D50w (Vial) Inj) 50 ml UNSCH PRN IV HYPOGLYCEMIA-SEE COMMENTS; Start 12/25/16 at 12:30 Glucagon (Glucagon Inj) 1 mg UNSCH PRN OTHER HYPOGLYCEMIA-SEE COMMENTS; Start 12/25/16 at 12:30 Insulin Human Regular (NovoLIN R SUPPLEMENTAL SCALE) 1 ACHS AND 3AM SQ Last administered on 12/27/16 06:31; Start 12/25/16 at 16:00 Insulin Aspart 20 units 20 units BIDAC SQ BSM Last administered on 12/25/16 16: 00; Start 12/25/16 at 16:00; Stop 12/26/16 at 13:44; Status DC Sodium Chloride (1/2 NS 1000 ml Inj) 1,000 ml @ 84 mls/hr [id number] IV Last administered on 12/26/16 19:52; Start 12/25/16 at 12:30 Hydralazine HCl (Apresoline Inj) 10 mg Q1HR PRN IV PUSH SBP>160, DBP>90; Start 12/25/16 at 12:30 Labetalol HCl (Trandate Inj) 10 mg Q1HR PRN IV PUSH SBP>160, DBP>90, HR>65; Start 12/25/16 at 12:30 Nitroglycerin (Nitroglycerin 2% Oint) 2 inch Q6HR PRN TOPICAL SBP>160, DBP>90; Start 12/25/16 at 12:30 Lisinopril (Prinivil) 5 mg Q12HR PO Last administered on 12/26/16 21:11; Start 12/25/16 at 12:30 Sodium Biphosphate/ Sodium Phosphate (Fleets Enema (Adult)) 133 ml ONCE ONCE RECTAL Last administered on 12/26/16 15:50; Start 12/26/16 at 10:45; Stop at 11:00; Status DC Docusate Sodium (Colace) 100 mg BID PO Last administered on 12/26/16 21:11; Start 12/26/16 at 14:00 Polyethylene Glycol (Miralax) 17 gm ONCE ONCE PO Last administered on 14:26; Start 12/26/16 at 13:45; Stop 12/26/16 at 13:54; Status DC Insulin Detemir (Levemir Inj) 10 units BID SQ Last administered on 12/26/16 21: 15; Start 12/26/16 at 21:00 Insulin Aspart (NovoLOG INJ) 5 units ACHS SQ Last administered on 12/26/16 21: 16; Start 12/26/16 at 16:00 Potassium Chloride (KCl) 30 meq ONCE ONCE PO ; Start 12/27/16 at 09:00; Stop 12/27/16 at 09:01; Status DC A/P Assessment and Plan 56-year-old male who presented with fatigue and abdominal pain found to have DKA. DKA -Patient was put on DKA protocol. He was weaned successfully off the insulin drip and now on SQ insulin. -At home patient takes 15 units of Levemir at night 15 units of NovoLog in the morning with insulin sliding scale that he really use. -Patient seems to not understand how insulin works. clinical informatics educator and dietitian consulted. -on Levemir to 10 units twice a day and NovoLog 5 units before meals. Will continue with insulin sliding scale. -Educated patient extensively on the use of insulin and compliance. History of hypertension -Patient on metoprolol 25 mg by mouth twice a day. - today hypotensive so will d/c metoprolol and give lowest dose of lisinopril. Severe BPH - on Tamsulosin and Finasteride -Dr. Rene, urologist is following. He change his Stratton today. -Per Dr. Rene patient is scheduled for suprapubic prostatectomy on January 03 pending resolution of DKA and better diabetic control. Acute kidney injury -Due to dehydration from uncontrolled diabetes. -Improving. -Continue to monitor and avoid nephrotoxins. Strict ins and outs. -on lisinopril. Leukocytosis/Anemia -Stable and improved. Pseudohyponatremia secondary to hyperglycemia Hyperkalemia -Resolved. DVT prophylaxis - Subcutaneous heparin GI prophylaxis Pepcid Discharge Planning Patient is clinically improving but feels very weak and does not feel safe to ambulate on his own. Will consult PT. Anticipate discharge for tomorrow. Mavis Whyte MD Dec 27, 2016 09:52
[2016-12-27] MEDS ORDERED: PILL SPLITTER OTHER PRN (10:00)
--- NOTE | 2016-12-27 10:30 | HHI.PR ---
Subjective Patient symptoms today Pt seen and examined. Feeling better. Had BM. Objective Vital Signs Vital Signs Date Time Temp Pulse Resp B/P Pulse Ox O2 Delivery O2 Flow Rate FiO2 12/27/16 08:00 98.0 78 16 94/54 98 12/27/16 04:00 97.7 83 18 100/52 97 12/27/16 00:00 97.1 98 18 108/60 98 12/26/16 23:30 96 12/26/16 20:00 97.4 86 18 128/70 100 12/26/16 20:00 100 Room Air 12/26/16 20:00 77 12/26/16 17:42 79 12/26/16 16:00 98.4 77 18 111/60 98 12/26/16 12:00 98.7 80 18 98/59 97 Intake & Output 12/27/16 12/27/16 07:00 19:00 Intake Total 2487 ml Output Total 1125 ml Balance 1362 ml Intake Oral 1020 ml IV Total 1467 ml Output Urine Total 1125 ml # Bowel Movements 0 Result Diagram: 12/27/16 0556 12/27/16 0556 Objective Remarks Abd:soft,nt,nd Stratton: urine clear Medications and IVs Current Medications Medications (Trade) Dose Ordered Sig/Jluis Route Start Time Stop Time Status Last Admin (Sodium Phosphate Inj/NS Inj) 105 ml @ 25 mls/hr UNSCH PRN IV 12/24/16 22:45 (Proscar) 5 mg HS PO 12/25/16 21:00 12/26/16 21:11 (Antivert) 25 mg TID PRN PO 12/25/16 03:30 12/27/16 09:37 (Flomax) 0.4 mg BID PO 12/25/16 09:00 12/27/16 09:34 (NS Flush) 2 ml UNSCH PRN IV FLUSH 12/25/16 12:30 (NS Flush) 2 ml BID IV FLUSH 12/25/16 21:00 12/27/16 09:00 (Tylenol) 650 mg Q6H PRN PO 12/25/16 12:30 ([place] 5-325 Mg) 1 tab Q4H PRN PO 12/25/16 12:30 12/27/16 02:32 (Morphine Inj) 2 mg Q2H PRN IV 12/25/16 12:30 12/25/16 16:21 Miscellaneous Information 1 Q361D XX 12/25/16 12:30 12/25/16 12:30 (Chlorhexidine 2% Cloth) 3 pack Taper DAILY@04 TOP 12/26/16 04:00 12/22/17 03:59 12/26/16 04:00 Chlorhexidine Gluconate 3 pack 3 pack UNSCH PRN TOP 12/25/16 12:30 Potassium Chloride 100 ml @ 50 mls/hr Q2H PRN IV 12/25/16 12:30 (KCl 20 Meq Premix Inj) 100 ml @ 50 mls/hr Q2H PRN IV 12/25/16 12:30 Potassium Bicarb/ Potassium Chloride 50 meq 50 meq UNSCH PRN PO 12/25/16 12:30 Potassium Chloride 100 ml @ 25 mls/hr UNSCH PRN IV 12/25/16 12:30 Potassium Chloride 100 ml @ 50 mls/hr Q2H PRN IV 12/25/16 12:30 (Magnesium Sulfate Inj/NS Inj) 100 ml @ 50 mls/hr UNSCH PRN IV 12/25/16 12:30 Magnesium Oxide 800 mg 800 mg UNSCH PRN PO 12/25/16 12:30 (Magnesium Sulfate Inj/NS Inj) 100 ml @ 50 mls/hr UNSCH PRN IV 12/25/16 12:30 Potassium Phosphate 2000 mg 2,000 mg Q4H PRN PO 12/25/16 12:30 (Sodium Phosphate Inj/NS 250 ml Inj) 250 ml @ 42 mls/hr UNSCH PRN IV 12/25/16 12:30 (K-Phos) 2,000 mg UNSCH PRN PO/TUBE 12/25/16 12:30 (D50w (Vial) Inj) 50 ml UNSCH PRN IV 12/25/16 12:30 Glucagon 1 mg 1 mg UNSCH PRN OTHER 12/25/16 12:30 (1/2 NS 1000 ml Inj) 1,000 ml @ 84 mls/hr [id number] IV 12/25/16 12:30 12/26/16 19:52 (Apresoline Inj) 10 mg Q1HR PRN IV PUSH 12/25/16 12:30 (Trandate Inj) 10 mg Q1HR PRN IV PUSH 12/25/16 12:30 (Nitroglycerin 2% Oint) 2 inch Q6HR PRN TOPICAL 12/25/16 12:30 (Colace) 100 mg BID PO 12/26/16 14:00 12/27/16 09:34 (Levemir Inj) 10 units BID SQ 12/26/16 21:00 12/27/16 09:31 (NovoLOG INJ) 5 units ACHS SQ 12/26/16 16:00 12/27/16 09:31 (Prinivil) 2.5 mg DAILY PO 12/28/16 09:00 (Pill Splitter) 1 ea UNSCH PRN OTHER 12/27/16 10:00 Assessment and Plan Assessment and Plan 56-year-old male with history of BPH with obstruction and urinary retention admitted with DKA. Will change Stratton catheter out today. Treat constipation. Glucose now is better controlled and acute renal failure is resolving. Patient scheduled for suprapubic prostatectomy on January 03 pending resolution of DKA and better diabetic control. Patient explained the importance of taking his medications and is noncompliant surgery will need to be postponed near future. 12/27/16 56-year-old male with history of BPH with obstruction and urinary retention admitted with DKA. SPP scheduled for 01/03. Treat constipation Pt to f/u in office this week for pre-op testing. Tanner Rene DO Dec 27, 2016 10:30
[2016-12-27 12:00] VITALS: BP 109/61; PULSE 84; RESP 16; TEMP 98.2; O2SAT 100
[2016-12-27 16:00] VITALS: BP 114/65; PULSE 104; RESP 16; TEMP 99; O2SAT 99
[2016-12-27 20:00] VITALS: BP 118/66; PULSE 95; RESP 22; TEMP 97.1; O2SAT 98
[2016-12-27] MEDS: FINASTERIDE 5 MG TAB PO SCH (21:11)
[2016-12-28] VITALS: BP 130/60; PULSE 101; RESP 22; TEMP 98.7; O2SAT 97
[2016-12-28] MEDS: INSULIN NovoLIN REGULAR SUPPLEMENTAL SCALE SQ SCH ×3 (03:00→12:16)
[2016-12-28 04:00] VITALS: BP 137/70; PULSE 91; RESP 18; TEMP 99; O2SAT 97
[2016-12-28] MEDS: CHLORHEXIDINE GLUCONATE 2 % 1 PACK (2 CLOTHS) TOP SCH (04:00)
[2016-12-28] MEDS: INSULIN ASPART 1,000 UNITS/10 ML VIAL SQ SCH ×2 (07:00→12:16)
[2016-12-28 07:41] LABS: HEMATOCRIT 25.7 % (39.0-51.0); MEAN CELL VOLUME 88.1 FL (80.0-100.0); MEAN CORPUSCULAR HEMOGLOBIN 29.4 PG (27.0-34.0); MEAN CORPUSCULAR HGB CONC 33.4 % (32.0-36.0); PLATELET COUNT 108 TH/MM3 (150-450); RED BLOOD COUNT 2.92 MIL/MM3 (4.50-5.90); RED CELL DISTRIBUTION WIDTH 17.2 % (11.6-17.2); REVIEW FLAG FINAL; WHITE BLOOD COUNT 5.3 TH/MM3 (4.0-11.0)
[2016-12-28 07:52] LABS: BICARBONATE 21.9 MEQ/L (21.0-32.0); POTASSIUM 3.6 MEQ/L (3.5-5.1)
[2016-12-28 08:00] VITALS: BP 149/73; PULSE 90; RESP 16; TEMP 98.2; O2SAT 98
[2016-12-28] MEDS ORDERED: LISINOPRIL 5 MG TAB PO SCH (09:00)
[2016-12-28] MEDS: SODIUM CHLORIDE 0.9% FLUSH 10 ML FLUSH IV FLUSH SCH (09:00)
[2016-12-28] MEDS: DOCUSATE SODIUM 100 MG CAP PO SCH (09:21)
[2016-12-28] MEDS: TAMSULOSIN HCL 0.4 MG CAP PO SCH (09:21)
[2016-12-28] MEDS: MECLIZINE HCL 25 MG TAB PO PRN (09:23)
[2016-12-28] MEDS: INSULIN DETEMIR 100 UNITS/ML VIAL SQ SCH (09:24)
[2016-12-28] MEDS ORDERED: HUMALOG SQ (11:23)
[2016-12-28] MEDS ORDERED: PERI8.6T PO (11:23)
--- NOTE | 2016-12-28 11:25 | HHI.DS ---
Discharge Summary Admission Date Dec 24, 2016 at 22:31 Discharge Date: Dec 28, 2016 Admitting Diagnosis DKA (1) DKA (diabetic ketoacidoses) ICD Code: E13.10 (2) Physical deconditioning ICD Code: R53.81 Procedures None Brief History - From Admission History of present illness from the admitting physician. 56-year-old male with history of insulin dependent diabetes, missed a few doses at home, here for evaluation of generalized weakness and worsening lower extremity weakness. Symptoms have been going on for last 5 days. Patient also endorses generalized malaise. He is scheduled for prostatectomy in 2 weeks. He has a chronic indwelling Stratton catheter. He denies chest pain or dyspnea. No abdominal pain, nausea, vomiting, or diarrhea. No fevers or chills. CBC/BMP: 12/28/16 0644 12/28/16 0644 Significant Findings Laboratory Tests Test 12/26/16 12/27/16 12/28/16 04:26 05:56 06:44 Red Blood Count 3.49 MIL/MM3 3.21 MIL/MM3 2.92 MIL/MM3 (4.50-5.90) (4.50-5.90) (4.50-5.90) Hemoglobin 10.1 GM/DL 9.3 GM/DL 8.6 GM/DL (13.0-17.0) (13.0-17.0) (13.0-17.0) Hematocrit 30.6 % 28.0 % 25.7 % (39.0-51.0) (39.0-51.0) (39.0-51.0) Neutrophils (%) (Auto) 85.5 % (16.0-70.0) Lymphocytes (%) (Auto) 8.1 % (9.0-44.0) Lymphocytes # (Auto) 0.5 TH/MM3 (1.0-4.8) Sodium Level 147 MEQ/L (136-145) Chloride Level 115 MEQ/L 113 MEQ/L 111 MEQ/L (98-107) (98-107) (98-107) Creatinine 1.34 MG/DL 1.32 MG/DL (0.60-1.30) (0.60-1.30) Estimat Glomerular Filtration 66 ML/MIN (>89) 68 ML/MIN (>89) 75 ML/MIN (>89) Rate Random Glucose 156 MG/DL 157 MG/DL 142 MG/DL (74-106) (74-106) (74-106) Hemoglobin A1c 12.4 % (4.3-6.0) Phosphorus Level 2.0 MG/DL (2.5-4.9) Alanine Aminotransferase 8 U/L (12-78) (ALT/SGPT) Troponin I LESS THAN 0.02 NG/ML (0.02-0.05) Albumin 2.4 GM/DL (3.4-5.0) Platelet Count 136 TH/MM3 108 TH/MM3 (150-450) (150-450) Potassium Level 3.2 MEQ/L (3.5-5.1) Calcium Level 8.4 MG/DL (8.5-10.1) PE at Discharge GENERAL: in NAD CARDIOVASCULAR: Regular rate and rhythm without murmurs, gallops, or rubs. RESPIRATORY: Breath sounds equal bilaterally. No accessory muscle use. GASTROINTESTINAL: Abdomen soft, + TTP in the epigastric area, nondistended. MUSCULOSKELETAL: No cyanosis, or edema. BACK: Nontender without obvious deformity. No CVA tenderness. Pt update on day of discharge Patient reports is feeling better. Agreeable to going home. I discussed with physical therapy. He needs a walker. This was ordered. Hospital Course 56-year-old male who presented with fatigue and abdominal pain found to have DKA. Evaluation and treatment course detailed below: DKA -Patient was put on DKA protocol. He was weaned successfully off the insulin drip and now on SQ insulin. -At home patient takes 15 units of Levemir at night 15 units of NovoLog in the morning with insulin sliding scale that he really use. -Patient seems to not understand how insulin works. He was seen by the nurses educator. His insulin were adjusted.. -Educated patient extensively on the use of insulin and compliance. History of hypertension -Antihypertensives adjusted accordingly. Continue lisinopril. Severe BPH - on Tamsulosin and Finasteride -Dr. Rene, urologist is following. Patient's Stratton was changed -Per Dr. Rene patient is scheduled for suprapubic prostatectomy on January 03 Acute kidney injury -Due to dehydration from uncontrolled diabetes. This resolved with hydration. Leukocytosis/Anemia -Stable and improved. Pseudohyponatremia secondary to hyperglycemia Hyperkalemia -Resolved. Pt Condition on Discharge: Good Discharge Disposition: Disch w/ Home Health Serv Discharge Time: <= 30 minutes Discharge Instructions DIET: Follow Instructions for: Diabetic Diet Activities you can perform: Regular-No Restrictions Other Activity Instructions: Per PT instructions New Medications: Walker with Front Wheels (Walker with Front Wheels) 1 Mis Mis 1 EA .ROUTE DIRECTED #1 Ref 0 EA Changed Medications: Insulin Lispro (Human) Inj (Humalog Inj) 1,000 Unit/10 Ml Vial 5 UNITS SQ BIDAC Blood Sugar Management #1 Ref 0 VIAL (Changed from: 20 UNITS) Sennosides-Docusate Sodium (Pamela-Colace) 8.6-50 Mg Tab 1 TAB PO BID Constipation #60 Ref 0 TAB (Changed from: Insulin Detemir Inj ( Levemir Inj) 1,000 unit/ 10 ML Vial 10 Units SQ HS #1 VIAL Ref 0) Continued Medications: Finasteride (Proscar) 5 Mg Tab 5 MG PO HS Do not crush. Manage Prostate Problems #30 Ref 0 TAB Lisinopril (Lisinopril) 20 Mg Tab 20 MG PO HS #30 Ref 0 TAB Meclizine (Meclizine) 25 Mg Tab 25 MG PO TID PRN VERTIGO #60 Ref 1 TAB Tamsulosin (Tamsulosin) 0.4 Mg Cap 0.4 MG PO BID Manage Prostate Problems #90 Ref 2 CAP Discontinued Medications: Metoprolol Tartrate (Metoprolol Tartrate) 25 Mg Tab 25 MG PO DAILY #30 Ref 0 TAB Mary Hirsch MD Dec 28, 2016 11:25
--- NOTE | 2016-12-28 11:25 | HHI.FF ---
Face to Face Verification Diagnosis: (1) DKA (diabetic ketoacidoses) (2) BPH (benign prostatic hyperplasia) (3) Physical deconditioning (4) Encounter for Stratton catheter fitting and adjustment Physical Therapy Order: Evaluate and Treat, Improve ambulation, Strength and gait training Home Health Nursing Order: Medical education Diabetic education Nursing assessment with vital signs Stratton catheter maintenance I have seen patient Demarcus Brownhubabodeana on 12/28/16. My clinical findings support the need for the requested home health care services because: Deconditioned w/ increased weakness Need for psychosocial assistance I certify that my clinical findings support that this patient is homebound because: Unsteady gait/balance Need for psychosocial assistance Mary Hirsch MD Dec 28, 2016 11:25
[2016-12-28 12:00] VITALS: BP_SYST 120; BP_SYST 124; BP_DIAS 71; BP_DIAS 75; PULSE 83; PULSE 90; RESP 16; RESP 18; TEMP 96; TEMP 98.4; O2SAT 95; O2SAT 98
[2016-12-28] MEDS: SODIUM CHLOR 0.45% 1000 ML INJ 1,000 ML IV SCH (12:00)
--- NOTE | 2016-12-28 12:35 | HHI.PR ---
Subjective Patient symptoms today Pt feeling better. No complaints. Had BM. Objective Vital Signs Vital Signs Date Time Temp Pulse Resp B/P Pulse Ox O2 Delivery O2 Flow Rate FiO2 12/28/16 09:15 Room Air 12/28/16 08:00 98.2 90 16 149/73 98 12/28/16 04:00 99.0 91 18 137/70 97 12/28/16 00:00 98.7 101 22 130/60 97 12/27/16 20:00 97.1 95 22 118/66 98 12/27/16 16:00 99.0 104 16 114/65 99 Intake & Output 12/28/16 12/28/16 07:00 19:00 Intake Total 1020 ml Output Total 1100 ml Balance -80 ml Intake Oral 1020 ml Output Urine Total 1100 ml # Bowel Movements 0 Result Diagram: 12/28/1664312/28/16643 Objective Remarks Abd:soft,nt,nd Stratton: urine clear 12/28/16 Abd:soft,nt,nd Stratton: urine clear Medications and IVs Current Medications Medications (Trade) Dose Ordered Sig/Jluis Route Start Time Stop Time Status Last Admin (Sodium Phosphate Inj/NS Inj) 105 ml @ 25 mls/hr UNSCH PRN IV 12/24/16 22:45 (Proscar) 5 mg HS PO 12/25/16 21:00 12/27/16 21:11 (Antivert) 25 mg TID PRN PO 12/25/16 03:30 12/28/16 09:23 (Flomax) 0.4 mg BID PO 12/25/16 09:00 12/28/16 09:21 (NS Flush) 2 ml UNSCH PRN IV FLUSH 12/25/16 12:30 (NS Flush) 2 ml BID IV FLUSH 12/25/16 21:00 12/28/16 09:00 (Tylenol) 650 mg Q6H PRN PO 12/25/16 12:30 ([place] 5-325 Mg) 1 tab Q4H PRN PO 12/25/16 12:30 12/27/16 02:32 (Morphine Inj) 2 mg Q2H PRN IV 12/25/16 12:30 12/25/16 16:21 Miscellaneous Information 1 Q361D XX 12/25/16 12:30 12/25/16 12:30 (Chlorhexidine 2% Cloth) 3 pack Taper DAILY@04 TOP 12/26/16 04:00 12/22/17 03:59 12/26/16 04:00 Chlorhexidine Gluconate 3 pack 3 pack UNSCH PRN TOP 12/25/16 12:30 Potassium Chloride 100 ml @ 50 mls/hr Q2H PRN IV 12/25/16 12:30 (KCl 20 Meq Premix Inj) 100 ml @ 50 mls/hr Q2H PRN IV 12/25/16 12:30 Potassium Bicarb/ Potassium Chloride 50 meq 50 meq UNSCH PRN PO 12/25/16 12:30 Potassium Chloride 100 ml @ 25 mls/hr UNSCH PRN IV 12/25/16 12:30 Potassium Chloride 100 ml @ 50 mls/hr Q2H PRN IV 12/25/16 12:30 (Magnesium Sulfate Inj/NS Inj) 100 ml @ 50 mls/hr UNSCH PRN IV 12/25/16 12:30 Magnesium Oxide 800 mg 800 mg UNSCH PRN PO 12/25/16 12:30 (Magnesium Sulfate Inj/NS Inj) 100 ml @ 50 mls/hr UNSCH PRN IV 12/25/16 12:30 Potassium Phosphate 2000 mg 2,000 mg Q4H PRN PO 12/25/16 12:30 (Sodium Phosphate Inj/NS 250 ml Inj) 250 ml @ 42 mls/hr UNSCH PRN IV 12/25/16 12:30 (K-Phos) 2,000 mg UNSCH PRN PO/TUBE 12/25/16 12:30 (D50w (Vial) Inj) 50 ml UNSCH PRN IV 12/25/16 12:30 Glucagon 1 mg 1 mg UNSCH PRN OTHER 12/25/16 12:30 (1/2 NS 1000 ml Inj) 1,000 ml @ 84 mls/hr [id number] IV 12/25/16 12:30 12/27/16 12:10 (Apresoline Inj) 10 mg Q1HR PRN IV PUSH 12/25/16 12:30 (Trandate Inj) 10 mg Q1HR PRN IV PUSH 12/25/16 12:30 (Nitroglycerin 2% Oint) 2 inch Q6HR PRN TOPICAL 12/25/16 12:30 (Colace) 100 mg BID PO 12/26/16 14:00 12/28/16 09:21 (Levemir Inj) 10 units BID SQ 12/26/16 21:00 12/28/16 09:24 (NovoLOG INJ) 5 units ACHS SQ 12/26/16 16:00 12/28/16 12:16 (Prinivil) 2.5 mg DAILY PO 12/28/16 09:00 12/28/16 09:21 (Pill Splitter) 1 ea UNSCH PRN OTHER 12/27/16 10:00 Assessment and Plan Assessment and Plan 56-year-old male with history of BPH with obstruction and urinary retention admitted with DKA. Will change Stratton catheter out today. Treat constipation. Glucose now is better controlled and acute renal failure is resolving. Patient scheduled for suprapubic prostatectomy on January 03 pending resolution of DKA and better diabetic control. Patient explained the importance of taking his medications and is noncompliant surgery will need to be postponed near future. 12/27/16 56-year-old male with history of BPH with obstruction and urinary retention admitted with DKA. SPP scheduled for 01/03. Treat constipation Pt to f/u in office this week for pre-op testing. 12/28/16 56-year-old male with history of BPH with obstruction and urinary retention admitted with DKA. SPP scheduled for 01/03. Pt to f/u in office this week for pre-op testing. Tanner Rene DO Dec 28, 2016 12:35
--- NOTE | 2016-12-28 12:39 | HHI.FF ---
Face to Face Verification Diagnosis: (1) DKA (diabetic ketoacidoses) (2) Hyperglycemia due to type 2 diabetes mellitus (3) BPH (benign prostatic hyperplasia) (4) Encounter for Stratton catheter fitting and adjustment (5) Physical deconditioning Home Health Nursing Order: Medical education Diabetic education Stratton catheter maintenance I have seen patient Demarcus Cunha on 12/28/16. My clinical findings support the need for the requested home health care services because: Limited ability to care for self Need for psychosocial assistance I certify that my clinical findings support that this patient is homebound because: Need for psychosocial assistance Mary Hirsch MD Dec 28, 2016 12:39
[2016-12-28] MEDS ORDERED: WALKER WHEELS/F1 MIS (13:38)
[2016-12-28 15:00] VITALS: PULSE 90
[2017-01-03] MEDS ORDERED: HUMALOG SQ (08:34)
== END 2016-12-28 16:55 | disposition home health service (06) | DRG 638 ==
LOC: NEPE 19:05 → NEDA 22:31 → N03A 12-25 01:19 → N06A 12-26 18:47
PROVIDERS: ADMIT Family Medicine; ATTEND Family Medicine
DX: E13.10 Other specified diabetes mellitus with ketoacidosis without coma (principal); N17.9 Acute kidney failure, unspecified; N13.8 Other obstructive and reflux uropathy; I48.91 Unspecified atrial fibrillation; I10 Essential (primary) hypertension; E86.0 Dehydration; E78.5 Hyperlipidemia, unspecified; D64.9 Anemia, unspecified; N40.1 Benign prostatic hyperplasia with lower urinary tract symptoms; K59.00 Constipation, unspecified; H54.42 Blindness, left eye, normal vision right eye; Z79.4 Long term (current) use of insulin; Z91.14 Patient's other noncompliance with medication regimen
CPT/HCPCS: 36600; 71010; 76775; 80048; 80053; 81001; 82010; 82570; 82805; 82948; 83036; 83605; 83690; 83735; 83930; 84100; 84300; 84484; 85025; 85027; 87040; 87205; 87641; 87804; 93005; 96374; J1815; J1817; J2270; J7030; J7042

== ENCOUNTER → 2017-01-02 | Outpatient (CLI) | payer MEDICAID ==
[~2017-01-02] MED LIST changes: -LEVEMIR SQ; -MACR100C2 PO; -METO25TA3 PO; +PERI8.6T PO; +WALKER WHEELS/F1 MIS; -WARF-20 PO
[2017-01-02 12:59] LABS: AUTOMATED NEUTROPHIL # 3.2 TH/MM3 (1.8-7.7); BASOPHIL % 0.4 % (0.0-2.0); EOSINOPHIL % 0.7 % (0.0-4.0); HEMATOCRIT 28.7 % (39.0-51.0); HEMO FLAGS DIFF FINAL; LYMPH % 12.5 % (9.0-44.0); LYMPHOCYTE # 0.5 TH/MM3 (1.0-4.8); MEAN CELL VOLUME 92.6 FL (80.0-100.0); MEAN CORPUSCULAR HEMOGLOBIN 29.2 PG (27.0-34.0); MEAN CORPUSCULAR HGB CONC 31.5 % (32.0-36.0); MONO % 6.8 % (0.0-8.0); NEUT % 79.6 % (16.0-70.0); PLATELET COUNT 145 TH/MM3 (150-450); RED CELL DISTRIBUTION WIDTH 18.3 % (11.6-17.2)
[2017-01-02 13:12] LABS: APTT (PATIENT) 29.3 SEC (24.3-30.1); INTERNATIONAL NORMALIZED RATIO 1.1 RATIO; PROTHROMBIN TIME - PATIENT 12.7 SEC (9.8-11.6)
[2017-01-02 13:55] LABS: ALKALINE PHOSPHATASE 87 U/L (45-117); ALT (GPT) 15 U/L (12-78); ANION GAP 7 MEQ/L (5-15); AST (GOT) 30 U/L (15-37); BICARBONATE 27.9 MEQ/L (21.0-32.0); BLOOD UREA NITROGEN 18 MG/DL (7-18); CHLORIDE 102 MEQ/L (98-107); GLOMERULAR FILTRATION RATE 54 ML/MIN (>89); POTASSIUM 4.9 MEQ/L (3.5-5.1); SODIUM (NA) 137 MEQ/L (136-145); TOTAL BILIRUBIN ADULT 0.5 MG/DL (0.2-1.0)
[2017-01-02 14:29] LABS: GLUCOSE,FASTING 450 MG/DL (74-99)
== END ==
LOC: CPRE 11:34
PROVIDERS: ATTEND Urology
DX: Z01.812 Encounter for preprocedural laboratory examination (principal); N40.0 Benign prostatic hyperplasia without lower urinary tract symptoms
CPT/HCPCS: 36415; 80053; 85025; 85610; 85730; 86850; 86900; 86901; 86920

== ENCOUNTER → 2017-06-21 | Outpatient (CLI) | payer MEDICAID ==
[~2017-06-21] MED LIST changes: +AMLO10 PO; +ASPI-516 CHEW; +FERR325T20 PO; +LEVEMIR SQ; +LEVO500T8 PO; -LISI-515 PO; +LISI30TA4 PO; +SENN1TAB PO; +VESI5TAB2 PO
[2017-06-21 11:50] LABS: APTT (PATIENT) 31.9 SEC (24.3-30.1); INTERNATIONAL NORMALIZED RATIO 1.4 RATIO; PROTHROMBIN TIME - PATIENT 14.2 SEC (9.8-11.6)
[2017-06-21 11:57] LABS: AUTOMATED NEUTROPHIL # 1.5 TH/MM3 (1.8-7.7); BASOPHIL % 0.4 % (0.0-2.0); HEMATOCRIT 36.1 % (39.0-51.0); HEMO FLAGS DIFF FINAL; LYMPH % 28.4 % (9.0-44.0); LYMPHOCYTE # 0.7 TH/MM3 (1.0-4.8); MEAN CELL VOLUME 91.1 FL (80.0-100.0); MEAN CORPUSCULAR HEMOGLOBIN 30.3 PG (27.0-34.0); MEAN CORPUSCULAR HGB CONC 33.3 % (32.0-36.0); MONO % 5.6 % (0.0-8.0); NEUT % 64.6 % (16.0-70.0); PLATELET COUNT 121 TH/MM3 (150-450); RED BLOOD COUNT 3.96 MIL/MM3 (4.50-5.90); RED CELL DISTRIBUTION WIDTH 13.6 % (11.6-17.2); WHITE BLOOD COUNT 2.3 TH/MM3 (4.0-11.0)
[2017-06-21 12:02] LABS: BICARBONATE 27.7 MEQ/L (21.0-32.0); POTASSIUM 4.7 MEQ/L (3.5-5.1)
== END ==
LOC: CPRE 11:08
PROVIDERS: ATTEND Urology
DX: Z01.812 Encounter for preprocedural laboratory examination (principal); N40.1 Benign prostatic hyperplasia with lower urinary tract symptoms
CPT/HCPCS: 36415; 80048; 85025; 85610; 85730

== ENCOUNTER 2017-06-28 14:11 | Inpatient (IN) | payer MEDICAID ==
[~2017-06-28] VITALS: Ht 185.4 cm; Wt 92.0 kg
[~2017-06-28 14:11] MED LIST changes: -HUMALOG SQ; -LEVO500T8 PO; -PERI8.6T PO; -WALKER WHEELS/F1 MIS
[2017-09-17] MEDS ORDERED: AMPICILLIN 1 GM/NS 100 ML IV SCH ×2 (06:00)
[2017-09-17] MEDS ORDERED: CHLORHEXIDINE GLUCONATE 2 % 1 PACK (2 CLOTHS) TOPICAL PRN (06:00)
[2017-09-17] MEDS ORDERED: LACTATED RINGER'S 1000 ML IV PRN (06:00)
[2017-09-17] MEDS ORDERED: GENTAMICIN INJ 120 MG in SODIUM CHLORIDE 0.9% INJ 100 ML IV SCH (06:00)
[2017-09-17] MEDS ORDERED: SODIUM CHLORID 0.9% 500 ML IV PRN (06:00)
[2017-09-17] MEDS ORDERED: POVIDONE IODINE 5% (ANTISEPSIS KIT) 4 APPLICATIONS EACH NARE PRN (06:00)
[2017-09-17] MEDS ORDERED: METOPROLOL TARTRATE 25 MG TAB PO PRN (06:00)
[2017-09-17] MEDS ORDERED: BUPIVACAINE HCL PF 0.5% 30 ML VIAL ONE (07:06)
[2017-09-17] MEDS ORDERED: ceFAZolin INJ 1,000 MG VIAL ONE (07:06)
[2017-09-17] MEDS ORDERED: GENTAMICIN SULFATE 80 MG/2 ML VIAL ONE (07:07)
[2017-09-17] MEDS ORDERED: DEXTROSE 50% IN WATER 50 ML SYRINGE ONE (07:12)
[2017-09-17] MEDS ORDERED: ACETAMINOPHEN 1000 MG/100 ML 100 ML IV ONE (08:38)
[2017-09-17] MEDS ORDERED: HYDROmorphone HCL PF 2 MG/ML VIAL ONE (08:38)
[2017-09-17] MEDS ORDERED: FUROSEMIDE 40 MG/4 ML VIAL ONE (09:43)
[2017-09-17] MEDS ORDERED: ONDANSETRON HCL 4 MG/2 ML VIAL IV PUSH PRN (11:30)
[2017-09-17] MEDS ORDERED: DIAZEPAM 5 MG TAB PO PRN (11:30)
[2017-09-17] MEDS ORDERED: MECLIZINE HCL 25 MG TAB PO PRN (11:30)
[2017-09-17] MEDS ORDERED: DO NOT ADM ANY ANTICOAGULANT DRUGS PRN (11:42)
[2017-09-17] MEDS ORDERED: NEOSTIGMINE 5 MG/5 ML SYRINGE IV PUSH ONE (12:00)
[2017-09-17] MEDS ORDERED: PHENYLEPH/NS 1000 MCG/10 ML SYR IV ONE (12:00)
[2017-09-17] MEDS ORDERED: ONDANSETRON HCL 4 MG/2 ML VIAL IV ONE (12:00)
[2017-09-17] MEDS ORDERED: NORMOSOL R INJ 1,000 ML IV ONE (12:00)
[2017-09-17] MEDS ORDERED: ePHEDrine/NS 25 MG/5 ML SYRINGE IV ONE (12:00)
[2017-09-17] MEDS ORDERED: ROCURONIUM INJ 50 MG/5 ML SYRINGE IV PUSH ONE (12:00)
[2017-09-17] MEDS ORDERED: LIDOCAINE HCL 1% PF 5 ML SYRINGE OTHER ONE (12:00)
[2017-09-17] MEDS ORDERED: GLYCOPYRROLATE 1 MG/5 ML SYRINGE IV PUSH ONE (12:00)
[2017-09-17] MEDS ORDERED: DEXAMETHASONE SOD PHOS 4 MG/ML VIAL IV ONE (12:00)
[2017-09-17] MEDS ORDERED: PROPOFOL 200 MG/20 ML AMP IV ONE (12:00)
[2017-09-17 12:20] LABS: HEMATOCRIT 29.2 % (39.0-51.0); HEMOGLOBIN 10.1 GM/DL (13.0-17.0); MEAN CORPUSCULAR HEMOGLOBIN 30.7 PG (27.0-34.0); MEAN CORPUSCULAR HGB CONC 34.5 % (32.0-36.0); MEAN PLATELET VOLUME 9.8 FL (7.0-11.0); PLATELET COUNT 110 TH/MM3 (150-450); RED BLOOD COUNT 3.28 MIL/MM3 (4.50-5.90); RED CELL DISTRIBUTION WIDTH 13.5 % (11.6-17.2); WHITE BLOOD COUNT 9.7 TH/MM3 (4.0-11.0)
[2017-09-17 12:32] LABS: BICARBONATE 25.1 MEQ/L (21.0-32.0); CALCIUM 8.3 MG/DL (8.5-10.1); CREATININE 1.28 MG/DL (0.60-1.30)
--- NOTE | 2017-09-17 12:38 | MP ---
cc: Tanner Rene DO DATE OF OPERATION: 09/17/2017 PREOPERATIVE DIAGNOSES: Bladder outlet obstruction with benign prostatic hyperplasia and chronic indwelling suprapubic tube. POSTOPERATIVE DIAGNOSES: Bladder outlet obstruction with benign prostatic hyperplasia and chronic indwelling suprapubic tube. PROCEDURE PERFORMED: Suprapubic prostatectomy. SURGEON: Tanner Rene DO ANESTHESIA: General endotracheal tube. RED HAT LINUX ENGINEER: Gio Tinsley MD DRAINS: A 24-Sammarinese Stratton and a 28 Malecot. BLOOD LOSS: 900 mL. COMPLICATIONS: There were no complications. DISPOSITION: The patient was awoken, extubated and transferred to the recovery room in stable condition. INDICATION FOR PROCEDURE: This is a 57-year-old male with a history of diabetes and a history of a prostatic abscess last year, who was in DKA at the time. He underwent suprapubic tube insertion due to chronic urosepsis and infection. He was a noncompliant patient and the suprapubic tube remained in for approximately 1 year. He became more compliant with his diabetes and his hypertension medication and was cleared by Medicine to undergo suprapubic prostatectomy. Risks and benefits were discussed preoperatively and he was willing to proceed. DESCRIPTION OF PROCEDURE: The patient was brought to the operating room, identified by myself as Paco Cunha. he was placed on the operating table in the supine position. he was prepped and draped in the usual sterile fashion, received preprocedure antibiotics, and general endotracheal tube anesthesia was administered. A 15-blade was used to make the opening incision, extending from the symphysis pubis up to below the umbilicus. The Nati and Camper fascia were then entered and then the transversalis fascia was identified. This was incised in the area of the midline and extended from the symphysis pubis up to near the umbilicus. The bladder was then identified and the overlying fat was dissected down to the area of the bladder. Once the bladder was identified, then 4 stay sutures were placed on each of the midline and then the bladder was also filled through the suprapubic tube to distend it. With the bladder distended, the incision was made using the Bovie cautery and the bladder was entered. The Bookwalter was placed in position and retraction was then provided. A large adenoma was identified protruding into the bladder. The prostate was then retracted anteriorly and both ureteral orifices identified. Scoring of the bladder neck was then performed using the Bovie cautery. The ureteral orifices were more cephalad to the bladder neck and easily identified. The anterior commissure was then fractured with my right index finger and then the adenoma was then circumferentially dissected from its capsular attachments and then removed. This was very large in size. Once that was done, the area of the bladder neck was then sewn with interrupted 2-0 chromic sutures to provide hemostasis. Once that was done, then Robert was placed into the prostatic bed and then a 24-Sammarinese Stratton was inserted with 30 mL in the balloon to provide tamponading in the prostatic bed. Hemostasis was finally attained and the Stratton remained in good position. A 28 Malecot was then inserted through the prior suprapubic tube site, which was lateral to the wound and was placed in good position. The bladder was then closed with running 2-0 chromic interlocking sutures and a double closure was then performed. The fascia was then closed with #1 looped PDS and schuyler were used to close the final skin incision. The patient tolerated the procedure well, was awoken and transferred to the recovery room in stable condition. DO EMILY Uribe/EMILY , 11:40 AM , 12:36 PM
[2017-09-17] MEDS ORDERED: MORPHINE SULFATE 30 MG/30 ML PCA ONE (12:42)
[2017-09-17] MEDS ORDERED: diphenhydrAMINE HCL 50 MG/ML VIAL IV PUSH PRN (13:00)
[2017-09-17] MEDS ORDERED: ACETAMINOPHEN 650 MG/20.3 ML UDC PO PRN (14:00)
[2017-09-17] MEDS: POTASSIUM CHLORIDE INJ 20 MEQ in LACTATED RINGER'S 1000 ML INJ 1,000 ML IV SCH (14:00)
[2017-09-17] MEDS ORDERED: INSULIN HUMAN REGULAR 1,000 UNITS/10 ML VIAL SQ ONE (14:00)
[2017-09-17] MEDS: ceFAZolin 2 GM PREMIX 50 ML IV SCH ×2 (15:00→21:08)
[2017-09-17] MEDS ORDERED: NALOXONE HCL 0.4 MG/ML AMP IV PUSH PRN (16:00)
[2017-09-17] MEDS ORDERED: MORPHINE SULFATE 30 MG/30 ML PCA IV SCH (16:00)
[2017-09-17 17:10] VITALS: BP 176/86; PULSE 68; RESP 20; TEMP 97.7; O2SAT 100
[2017-09-17 20:00] VITALS: BP 157/82; PULSE 72; RESP 18; TEMP 98.9; O2SAT 100
[2017-09-17 20:21] VITALS: PULSE 67
[2017-09-17] MEDS: INSULIN DETEMIR 100 UNITS/ML VIAL SQ SCH (21:00)
[2017-09-17] MEDS: OXYBUTYNIN CHLORIDE 5 MG TAB PO SCH (21:07)
[2017-09-17] MEDS: PCA - TOTAL MG MORPHINE DELIVERED PER SHIFT SCH (21:09)
[2017-09-18] VITALS (8 sets, daily range): BP systolic 140–170; BP diastolic 66–77; PULSE 64–92; RESP 16–30; TEMP 98.6–99.4; O2SAT 97–100
[2017-09-18] MEDS: POTASSIUM CHLORIDE INJ 20 MEQ in LACTATED RINGER'S 1000 ML INJ 1,000 ML IV SCH ×3 (00:06→20:02)
[2017-09-18] MEDS: AMINOCAPROIC ACID INJ 3,000 MG in SODIUM CHLORIDE 0.9% IRR BAG 3,000 ML IRRIGATION SCH (01:32)
[2017-09-18] MEDS: ceFAZolin 2 GM PREMIX 50 ML IV SCH (05:24)
[2017-09-18] MEDS: PCA - TOTAL MG MORPHINE DELIVERED PER SHIFT SCH ×3 (05:27→22:00)
[2017-09-18] MEDS: OXYBUTYNIN CHLORIDE 5 MG TAB PO SCH ×2 (08:58→21:00)
[2017-09-18] MEDS: LISINOPRIL 10 MG TAB PO SCH (08:58)
--- NOTE | 2017-09-18 09:00 | HHI.PR ---
Subjective Patient symptoms today Pt seen and examined. Feels well. Urine clearing Objective Vital Signs Vital Signs Date Time Temp Pulse Resp B/P (MAP) Pulse Ox O2 Delivery O2 Flow Rate FiO2 09/18/17 08:00 98.7 73 30 163/75 (104) 100 09/18/17 05:27 16 09/18/17 04:00 98.7 64 18 150/67 (94) 97 09/18/17 00:05 68 09/18/17 00:00 98.6 69 18 140/66 (90) 97 09/17/17 21:09 16 09/17/17 20:21 67 09/17/17 20:00 98.9 72 18 157/82 (107) 100 09/17/17 17:10 97.7 68 20 176/86 (116) 100 09/17/17 16:03 16 09/17/17 16:00 68 16 162/70 (100) 100 Nasal Cannula 2 09/17/17 15:30 64 16 161/82 (108) 100 Nasal Cannula 2 09/17/17 15:00 62 16 164/82 (109) 100 Nasal Cannula 2 09/17/17 14:30 60 16 158/84 (108) 100 Nasal Cannula 2 09/17/17 14:00 64 16 153/76 (101) 100 Nasal Cannula 2 09/17/17 13:30 60 16 165/79 (107) 100 Nasal Cannula 2 09/17/17 13:00 60 16 162/80 (107) 100 Nasal Cannula 2 09/17/17 12:45 64 16 168/80 (109) 100 Nasal Cannula 2 09/17/17 12:30 60 16 161/76 (104) 100 Nasal Cannula 2 09/17/17 12:15 60 16 163/77 (105) 100 Nasal Cannula 2 09/17/17 12:00 60 16 162/77 (105) 100 Nasal Cannula 2 09/17/17 11:45 62 16 160/74 (102) 100 Nasal Cannula 2 09/17/17 11:40 97.6 60 16 150/73 (98) 100 Nasal Cannula 2 Intake & Output 09/18/17 09/18/17 07:00 19:00 Intake Total 4050 ml Balance 4050 ml Intake IV Total 4050 ml Result Diagram: 09/17/17 1205 09/17/17 1205 Objective Remarks Abd:soft,nt,nd Dressing intact Stratton: slight blood tinged urine; on CBI Medications and IVs Current Medications Medications (Trade) Dose Ordered Sig/Jluis Route Start Time Stop Time Status Last Admin Lactated Ringer's 1,000 ml @ 30 mls/hr Q24H PRN IV 09/17/17 06:00 09/20/17 05:59 09/17/17 06:15 Sodium Chloride 500 ml @ 30 mls/hr [id number] PRN IV 09/17/17 06:00 09/20/17 05:59 (Lopressor) 25 mg DIGITAL CONTENT PRODUCER PRN PO 09/17/17 06:00 09/20/17 05:59 (Betadine 5% Antisepsis Kit) 1 applic DIGITAL CONTENT PRODUCER PRN EACH NARE 09/17/17 06:00 09/20/17 05:59 09/17/17 07:00 (Chlorhexidine 2% Cloth) 3 pack DIGITAL CONTENT PRODUCER PRN TOPICAL 09/17/17 06:00 09/20/17 05:59 09/17/17 06:00 (Antivert) 25 mg Q8H PRN PO 09/17/17 11:30 (Norvasc) 10 mg DAILY PO 09/18/17 09:00 (Levemir Inj) 10 units HS SQ 09/17/17 21:00 (Prinivil) 30 mg DAILY PO 09/18/17 09:00 (Ditropan) 5 mg Q12HR PO 09/17/17 21:00 09/17/17 21:07 (Zofran Inj) 4 mg Q6HR PRN IV PUSH 09/17/17 11:30 09/17/17 23:12 (Tylenol 650 Mg/ 20 ml Liq) 650 mg Q6H PRN PO 09/17/17 14:00 (Valium) 5 mg Q12H PRN PO 09/17/17 11:30 (Benadryl Inj) 25 mg Q6H PRN IV PUSH 09/17/17 13:00 Potassium Chloride 20 meq/ Lactated Ringer's 1,010 ml @ 100 mls/hr Q10H6M IV 09/17/17 14:00 09/18/17 00:06 Aminocaproic Acid 3000 mg/Sodium Chloride 3,012 ml @ 0 mls/hr UNSCH IRRIGATION 09/17/17 13:00 09/18/17 01:32 Miscellaneous Information ALL NURSING DEPARTME... UNSCH PRN .XX 09/17/17 11:42 09/18/17 11:41 (Morphine 1 Mg/ ml GAMING CAGE WORKER) 30 mg UNSCH IV 09/17/17 16:00 09/17/17 16:03 GAMING CAGE WORKER Dosage Infused (Pha) 1 Q8HR .XX 09/17/17 22:00 09/18/17 05:27 (Narcan Inj) 0.4 mg UNSCH PRN IV PUSH 09/17/17 16:00 Assessment and Plan Assessment and Plan Stable s/p SPP POD#1 OOB to chair Continue CBI Check Labs Tanner Rene DO Sep 18, 2017 09:00
[2017-09-18 09:11] LABS: MEAN CELL VOLUME 89.9 FL (80.0-100.0); MEAN CORPUSCULAR HGB CONC 34.5 % (32.0-36.0); MEAN PLATELET VOLUME 10.2 FL (7.0-11.0); PLATELET COUNT 119 TH/MM3 (150-450); RED BLOOD COUNT 3.22 MIL/MM3 (4.50-5.90); RED CELL DISTRIBUTION WIDTH 13.8 % (11.6-17.2); WHITE BLOOD COUNT 8.7 TH/MM3 (4.0-11.0)
[2017-09-18 09:16] LABS: INTERNATIONAL NORMALIZED RATIO 1.3 RATIO; PROTHROMBIN TIME - PATIENT 13.5 SEC (9.8-11.6)
[2017-09-18 09:28] LABS: BICARBONATE 29.3 MEQ/L (21.0-32.0); CALCIUM 8.7 MG/DL (8.5-10.1); CREATININE 1.55 MG/DL (0.60-1.30)
[2017-09-18] MEDS: INSULIN DETEMIR 100 UNITS/ML VIAL SQ SCH (21:00)
[2017-09-19] VITALS (7 sets, daily range): BP systolic 124–156; BP diastolic 64–78; PULSE 71–95; RESP 18–20; TEMP 98.3–100; O2SAT 95–100
[2017-09-19 05:02] LABS: HEMATOCRIT 26.2 % (39.0-51.0); MEAN CELL VOLUME 90.1 FL (80.0-100.0); MEAN CORPUSCULAR HEMOGLOBIN 31.1 PG (27.0-34.0); MEAN CORPUSCULAR HGB CONC 34.5 % (32.0-36.0); MEAN PLATELET VOLUME 10.6 FL (7.0-11.0); PLATELET COUNT 104 TH/MM3 (150-450); RED CELL DISTRIBUTION WIDTH 13.9 % (11.6-17.2); WHITE BLOOD COUNT 6.6 TH/MM3 (4.0-11.0)
[2017-09-19] MEDS: POTASSIUM CHLORIDE INJ 20 MEQ in LACTATED RINGER'S 1000 ML INJ 1,000 ML IV SCH ×2 (05:12→14:54)
[2017-09-19] MEDS: AMINOCAPROIC ACID INJ 3,000 MG in SODIUM CHLORIDE 0.9% IRR BAG 3,000 ML IRRIGATION SCH (05:12)
[2017-09-19 05:13] LABS: CALCIUM 8.9 MG/DL (8.5-10.1); CREATININE 1.27 MG/DL (0.60-1.30)
[2017-09-19] MEDS: PCA - TOTAL MG MORPHINE DELIVERED PER SHIFT SCH ×3 (05:13→22:00)
--- NOTE | 2017-09-19 08:28 | HHI.PR ---
Subjective Patient symptoms today Pt seen and examined. Urine pink on CBI. Hgb 9,0 Objective Vital Signs Vital Signs Date Time Temp Pulse Resp B/P (MAP) Pulse Ox O2 Delivery O2 Flow Rate FiO2 09/19/17 04:00 99.1 84 20 156/78 (104) 97 09/19/17 00:22 99.6 71 20 135/64 (87) 95 09/18/17 23:00 92 09/18/17 20:00 99.0 87 22 170/77 (108) 09/18/17 16:00 99.4 76 16 158/74 (102) 99 09/18/17 13:49 30 09/18/17 12:00 98.8 75 30 159/75 (103) 99 Intake & Output 09/19/17 09/19/17 07:00 19:00 Intake Total 4000 ml Output Total 5700 ml Balance -1700 ml Intake IV Total 4000 ml Output Urine Total 5700 ml Result Diagram: 09/19/1740609/19/17406 Objective Remarks Abd:soft,nt,nd Dressing intact Stratton: slight blood tinged urine; on CBI 09/19 Abd:soft,nt,nd Wound: clean and dry Stratton: pink urine on CBI Medications and IVs Current Medications Medications (Trade) Dose Ordered Sig/Jluis Route Start Time Stop Time Status Last Admin Lactated Ringer's 1,000 ml @ 30 mls/hr Q24H PRN IV 09/17/17 06:00 09/20/17 05:59 09/17/17 06:15 Sodium Chloride 500 ml @ 30 mls/hr [id number] PRN IV 09/17/17 06:00 09/20/17 05:59 (Lopressor) 25 mg TECHNICAL SERVICES CONSULTANT PRN PO 09/17/17 06:00 09/20/17 05:59 (Betadine 5% Antisepsis Kit) 1 applic TECHNICAL SERVICES CONSULTANT PRN EACH NARE 09/17/17 06:00 09/20/17 05:59 09/17/17 07:00 (Chlorhexidine 2% Cloth) 3 pack TECHNICAL SERVICES CONSULTANT PRN TOPICAL 09/17/17 06:00 09/20/17 05:59 09/17/17 06:00 (Antivert) 25 mg Q8H PRN PO 09/17/17 11:30 (Norvasc) 10 mg DAILY PO 09/18/17 09:00 09/18/17 08:58 (Levemir Inj) 10 units HS SQ 09/17/17 21:00 (Prinivil) 30 mg DAILY PO 09/18/17 09:00 09/18/17 08:58 (Ditropan) 5 mg Q12HR PO 09/17/17 21:00 09/18/17 21:00 (Zofran Inj) 4 mg Q6HR PRN IV PUSH 09/17/17 11:30 09/17/17 23:12 (Tylenol 650 Mg/ 20 ml Liq) 650 mg Q6H PRN PO 09/17/17 14:00 (Valium) 5 mg Q12H PRN PO 09/17/17 11:30 (Benadryl Inj) 25 mg Q6H PRN IV PUSH 09/17/17 13:00 Potassium Chloride 20 meq/ Lactated Ringer's 1,010 ml @ 100 mls/hr Q10H6M IV 09/17/17 14:00 09/19/17 05:12 Aminocaproic Acid 3000 mg/Sodium Chloride 3,012 ml @ 0 mls/hr UNSCH IRRIGATION 09/17/17 13:00 09/19/17 05:12 (Morphine 1 Mg/ ml MONONITROTOLUENE OPERATOR) 30 mg UNSCH IV 09/17/17 16:00 09/17/17 16:03 MONONITROTOLUENE OPERATOR Dosage Infused (Pha) 1 Q8HR .XX 09/17/17 22:00 09/19/17 05:13 (Narcan Inj) 0.4 mg UNSCH PRN IV PUSH 09/17/17 16:00 Assessment and Plan Assessment and Plan Stable s/p SPP POD#1 OOB to chair Continue CBI Check Labs 09/19 Stable s/p SPP POD#2 OOB to chair Full liquid diet Continue Amicar CBI Tanner Rene DO Sep 19, 2017 08:28
[2017-09-19] MEDS: OXYBUTYNIN CHLORIDE 5 MG TAB PO SCH ×2 (10:54→23:21)
[2017-09-19] MEDS: LISINOPRIL 10 MG TAB PO SCH (10:54)
[2017-09-19] MEDS: INSULIN DETEMIR 100 UNITS/ML VIAL SQ SCH (21:00)
[2017-09-20] VITALS (7 sets, daily range): BP systolic 130–159; BP diastolic 64–76; PULSE 69–94; RESP 18–23; TEMP 98.2–98.9; O2SAT 96–100
[2017-09-20] MEDS: POTASSIUM CHLORIDE INJ 20 MEQ in LACTATED RINGER'S 1000 ML INJ 1,000 ML IV SCH ×3 (02:36→20:00)
[2017-09-20 05:14] LABS: HEMATOCRIT 27.5 % (39.0-51.0); HEMOGLOBIN 9.5 GM/DL (13.0-17.0); MEAN CELL VOLUME 89.8 FL (80.0-100.0); MEAN CORPUSCULAR HGB CONC 34.6 % (32.0-36.0); MEAN PLATELET VOLUME 9.9 FL (7.0-11.0); PLATELET COUNT 116 TH/MM3 (150-450); RED BLOOD COUNT 3.06 MIL/MM3 (4.50-5.90); RED CELL DISTRIBUTION WIDTH 13.5 % (11.6-17.2); WHITE BLOOD COUNT 6.1 TH/MM3 (4.0-11.0)
[2017-09-20] MEDS: PCA - TOTAL MG MORPHINE DELIVERED PER SHIFT SCH (06:00)
[2017-09-20] MEDS: LISINOPRIL 10 MG TAB PO SCH (08:38)
[2017-09-20] MEDS: OXYBUTYNIN CHLORIDE 5 MG TAB PO SCH ×2 (08:38→20:00)
--- NOTE | 2017-09-20 09:24 | HHI.PR ---
Subjective Patient symptoms today Pt seen and examined. Clots irrigated at bedside. CBI was not running. Objective Vital Signs Vital Signs Date Time Temp Pulse Resp B/P (MAP) Pulse Ox O2 Delivery O2 Flow Rate FiO2 09/20/17 08:00 98.7 86 23 157/75 (102) 99 09/20/17 06:00 16 09/20/17 03:17 98.6 93 20 146/70 (95) 99 09/20/17 00:00 98.5 81 18 136/69 (91) 96 09/19/17 23:00 95 09/19/17 22:00 18 09/19/17 21:29 98.9 87 19 156/71 (99) 98 09/19/17 16:00 98.3 80 18 143/71 (95) 100 09/19/17 14:00 16 09/19/17 12:00 98.5 86 18 143/66 (91) 95 Intake & Output 09/20/17 09/20/17 07:00 19:00 Intake Total 420 ml Output Total 8100 ml Balance -7680 ml Intake Oral 420 ml Output Urine Total 8100 ml Result Diagram: 09/20/17 0417 09/19/17 0407 Objective Remarks Abd:soft,nt,nd Dressing intact Stratton: slight blood tinged urine; on CBI 09/19 Abd:soft,nt,nd Wound: clean and dry Stratton: pink urine on CBI 09/20 Abd:soft,nt,nd Stratton: urine clear: CBI off Wound: clean and dry Ext: neg C/C/E Medications and IVs Current Medications Medications (Trade) Dose Ordered Sig/Jluis Route Start Time Stop Time Status Last Admin (Antivert) 25 mg Q8H PRN PO 09/17/17 11:30 (Norvasc) 10 mg DAILY PO 09/18/17 09:00 09/20/17 08:37 (Levemir Inj) 10 units HS SQ 09/17/17 21:00 (Prinivil) 30 mg DAILY PO 09/18/17 09:00 09/20/17 08:38 (Ditropan) 5 mg Q12HR PO 09/17/17 21:00 09/20/17 08:38 (Zofran Inj) 4 mg Q6HR PRN IV PUSH 09/17/17 11:30 09/17/17 23:12 (Tylenol 650 Mg/ 20 ml Liq) 650 mg Q6H PRN PO 09/17/17 14:00 (Valium) 5 mg Q12H PRN PO 09/17/17 11:30 09/20/17 08:37 (Benadryl Inj) 25 mg Q6H PRN IV PUSH 09/17/17 13:00 Potassium Chloride 20 meq/ Lactated Ringer's 1,010 ml @ 100 mls/hr Q10H6M IV 09/17/17 14:00 09/20/17 02:36 Aminocaproic Acid 3000 mg/Sodium Chloride 3,012 ml @ 0 mls/hr UNSCH IRRIGATION 09/17/17 13:00 09/19/17 05:12 (Morphine 1 Mg/ ml GEMOLOGIST) 30 mg UNSCH IV 09/17/17 16:00 09/17/17 16:03 GEMOLOGIST Dosage Infused (Pha) 1 Q8HR .XX 09/17/17 22:00 09/20/17 06:00 (Narcan Inj) 0.4 mg UNSCH PRN IV PUSH 09/17/17 16:00 Assessment and Plan Assessment and Plan Stable s/p SPP POD#1 OOB to chair Continue CBI Check Labs 3/ Stable s/p SPP POD#2 OOB to chair Full liquid diet Continue Amicar CBI 3/2 Stable s/p SPP POD#3 OOB/Ambulate CBI clamped to off SP tube plugged Regular diet Tanner Rene DO Sep 20, 2017 09:24
[2017-09-20] MEDS ORDERED: MORPHINE SULFATE 2 MG/ML INJ IM PRN (09:30)
[2017-09-20] MEDS: BELLADONNA ALKALOIDS/OPIUM 60 MG SUPP RECTAL PRN ×2 (15:54→21:54)
[2017-09-20] MEDS: oxyCODONE/ACETAMINOPHEN 7.5 MG/325 MG TAB PO PRN ×2 (15:55→21:54)
[2017-09-20] MEDS: MORPHINE SULFATE 2 MG/ML INJ IV PRN (20:00)
[2017-09-20] MEDS: INSULIN DETEMIR 100 UNITS/ML VIAL SQ SCH (20:02)
[2017-09-21] VITALS (8 sets, daily range): BP systolic 118–153; BP diastolic 63–76; PULSE 62–86; RESP 21–38; TEMP 98.4–98.8; O2SAT 96–99
[2017-09-21] MEDS: BELLADONNA ALKALOIDS/OPIUM 60 MG SUPP RECTAL PRN (05:51)
[2017-09-21] MEDS: oxyCODONE/ACETAMINOPHEN 7.5 MG/325 MG TAB PO PRN ×4 (05:51→22:36)
[2017-09-21] MEDS: OXYBUTYNIN CHLORIDE 5 MG TAB PO SCH ×2 (09:31→20:13)
[2017-09-21] MEDS: LISINOPRIL 10 MG TAB PO SCH (09:31)
--- NOTE | 2017-09-21 11:41 | HHI.PR ---
Subjective Patient symptoms today Pt seen and examined. Feeling well. Still with some hematuria. Objective Vital Signs Vital Signs Date Time Temp Pulse Resp B/P (MAP) Pulse Ox O2 Delivery O2 Flow Rate FiO2 09/21/17 08:00 98.4 63 38 118/63 (81) 97 09/21/17 07:46 Room Air 09/21/17 07:46 62 09/21/17 06:51 20 09/21/17 04:00 98.6 86 22 138/72 (94) 98 09/21/17 00:00 98.7 68 21 126/72 (90) 99 09/21/17 00:00 Room Air 09/20/17 20:30 Room Air 09/20/17 20:05 20 09/20/17 20:00 Room Air 09/20/17 20:00 77 09/20/17 19:54 98.7 69 20 131/64 (86) 100 09/20/17 16:00 98.9 94 20 159/72 (101) 98 09/20/17 12:00 99 Room Air 09/20/17 12:00 98.2 84 20 130/76 (94) 99 Intake & Output 09/21/17 09/21/17 07:00 19:00 Intake Total 820 ml Output Total 1350 ml Balance -530 ml Intake Oral 820 ml Output Urine Total 1350 ml Result Diagram: 09/20/17 0417 09/19/17 0407 Objective Remarks Abd:soft,nt,nd Dressing intact Stratton: slight blood tinged urine; on CBI 09/19 Abd:soft,nt,nd Wound: clean and dry Stratton: pink urine on CBI 09/20 Abd:soft,nt,nd Stratton: urine clear: CBI off Wound: clean and dry Ext: neg C/C/E 09/21 Abd:soft,nt,nd Stratton: urine slight blood tinge Wound: clean and dry Ext: neg C/C/E Medications and IVs Current Medications Medications (Trade) Dose Ordered Sig/Jluis Route Start Time Stop Time Status Last Admin (Antivert) 25 mg Q8H PRN PO 09/17/17 11:30 (Norvasc) 10 mg DAILY PO 09/18/17 09:00 09/21/17 09:31 (Levemir Inj) 10 units HS SQ 09/17/17 21:00 09/20/17 20:02 (Prinivil) 30 mg DAILY PO 09/18/17 09:00 09/21/17 09:31 (Ditropan) 5 mg Q12HR PO 09/17/17 21:00 09/21/17 09:31 (Zofran Inj) 4 mg Q6HR PRN IV PUSH 09/17/17 11:30 09/17/17 23:12 (Tylenol 650 Mg/ 20 ml Liq) 650 mg Q6H PRN PO 09/17/17 14:00 (Valium) 5 mg Q12H PRN PO 09/17/17 11:30 09/20/17 08:37 (Benadryl Inj) 25 mg Q6H PRN IV PUSH 09/17/17 13:00 Potassium Chloride 20 meq/ Lactated Ringer's 1,010 ml @ 60 mls/hr [id number] IV 09/17/17 14:00 09/20/17 20:00 (Percocet 7.5-325 Mg) 1 tab Q6H PRN PO 09/20/17 09:30 09/21/17 11:19 (B & O Supp) 60 mg Q6HR PRN RECTAL 09/20/17 12:00 09/21/17 05:51 (Morphine Inj) 2 mg Q4H PRN IV 09/20/17 13:30 09/20/17 20:00 Assessment and Plan Assessment and Plan Stable s/p SPP POD#1 OOB to chair Continue CBI Check Labs 3/ Stable s/p SPP POD#2 OOB to chair Full liquid diet Continue Amicar CBI 3/2 Stable s/p SPP POD#3 OOB/Ambulate CBI clamped to off SP tube plugged Regular diet 3/3 Stable s/p SPP POD#4 OOB/Ambulate Ducolux suppository Tanner Rene DO Sep 21, 2017 11:41
[2017-09-21] MEDS ORDERED: BISACODYL 10 MG SUPP RECTAL ONE (11:45)
[2017-09-21] MEDS: INSULIN DETEMIR 100 UNITS/ML VIAL SQ SCH (20:13)
[2017-09-21] MEDS: POTASSIUM CHLORIDE INJ 20 MEQ in LACTATED RINGER'S 1000 ML INJ 1,000 ML IV SCH (20:13)
[2017-09-22 00:14] VITALS: BP 133/74; PULSE 75; RESP 18; TEMP 98.4; O2SAT 97
[2017-09-22 04:37] VITALS: BP 127/67; PULSE 74; RESP 20; TEMP 98.8; O2SAT 96
[2017-09-22] MEDS: oxyCODONE/ACETAMINOPHEN 7.5 MG/325 MG TAB PO PRN ×2 (05:56→20:10)
[2017-09-22 07:48] VITALS: BP 176/88; PULSE 76; RESP 20; TEMP 99; O2SAT 97
[2017-09-22] MEDS: LISINOPRIL 10 MG TAB PO SCH (09:39)
[2017-09-22] MEDS: OXYBUTYNIN CHLORIDE 5 MG TAB PO SCH ×2 (09:39→20:03)
[2017-09-22] MEDS: MORPHINE SULFATE 2 MG/ML INJ IV PRN ×2 (09:48→14:23)
--- NOTE | 2017-09-22 09:50 | HHI.PR ---
Subjective Patient symptoms today Pt seen and examined. Feels well. Urine with old blood in bag. Clearing. Off CBI. Objective Vital Signs Vital Signs Date Time Temp Pulse Resp B/P (MAP) Pulse Ox O2 Delivery O2 Flow Rate FiO2 09/22/17 07:48 99.0 76 20 176/88 (117) 97 09/22/17 06:56 20 09/22/17 04:37 98.8 74 20 127/67 (87) 96 09/22/17 00:14 98.4 75 18 133/74 (93) 97 09/21/17 20:12 98.8 74 22 142/66 (91) 96 09/21/17 20:12 Room Air 09/21/17 20:00 75 09/21/17 16:05 09/21/17 16:00 98.7 66 30 153/75 (101) 97 09/21/17 12:00 98.8 64 30 147/76 (99) 97 Intake & Output 09/22/17 09/22/17 07:00 19:00 Output Total 1650 ml Balance -1650 ml Output Urine Total 1650 ml # Bowel Movements 4 Result Diagram: 09/20/17 0417 09/19/17 0407 Objective Remarks Abd:soft,nt,nd Dressing intact Stratton: slight blood tinged urine; on CBI 09/19 Abd:soft,nt,nd Wound: clean and dry Stratton: pink urine on CBI 09/20 Abd:soft,nt,nd Stratton: urine clear: CBI off Wound: clean and dry Ext: neg C/C/E 09/21 Abd:soft,nt,nd Stratton: urine slight blood tinge Wound: clean and dry Ext: neg C/C/E 09/22 Abd:soft,nt,nd Stratton: old blood; urine clearing Wound: clean and dry Ext: neg C/C/E Medications and IVs Current Medications Medications (Trade) Dose Ordered Sig/Jluis Route Start Time Stop Time Status Last Admin (Antivert) 25 mg Q8H PRN PO 09/17/17 11:30 (Norvasc) 10 mg DAILY PO 09/18/17 09:00 09/22/17 09:39 (Levemir Inj) 10 units HS SQ 09/17/17 21:00 09/21/17 20:13 (Prinivil) 30 mg DAILY PO 09/18/17 09:00 09/22/17 09:39 (Ditropan) 5 mg Q12HR PO 09/17/17 21:00 09/22/17 09:39 (Zofran Inj) 4 mg Q6HR PRN IV PUSH 09/17/17 11:30 09/17/17 23:12 (Tylenol 650 Mg/ 20 ml Liq) 650 mg Q6H PRN PO 09/17/17 14:00 (Valium) 5 mg Q12H PRN PO 09/17/17 11:30 09/20/17 08:37 (Benadryl Inj) 25 mg Q6H PRN IV PUSH 09/17/17 13:00 Potassium Chloride 20 meq/ Lactated Ringer's 1,010 ml @ 60 mls/hr [id number] IV 09/17/17 14:00 09/21/17 20:13 (Percocet 7.5-325 Mg) 1 tab Q6H PRN PO 09/20/17 09:30 09/22/17 05:56 (B & O Supp) 60 mg Q6HR PRN RECTAL 09/20/17 12:00 09/21/17 05:51 (Morphine Inj) 2 mg Q4H PRN IV 09/20/17 13:30 09/22/17 09:48 Assessment and Plan Assessment and Plan Stable s/p SPP POD#1 OOB to chair Continue CBI Check Labs 3/ Stable s/p SPP POD#2 OOB to chair Full liquid diet Continue Amicar CBI 3/2 Stable s/p SPP POD#3 OOB/Ambulate CBI clamped to off SP tube plugged Regular diet 3/3 Stable s/p SPP POD#4 OOB/Ambulate Ducolux suppository 3/4 Stable s/p SPP POD#5 OOB/Ambulate Tanner Rene DO Sep 22, 2017 09:50
[2017-09-22 11:55] VITALS: BP 142/81; PULSE 82; RESP 20; TEMP 98.5; O2SAT 98
[2017-09-22 16:51] VITALS: BP 161/76; PULSE 87; RESP 20; TEMP 98.9; O2SAT 99
[2017-09-22] MEDS: POTASSIUM CHLORIDE INJ 20 MEQ in LACTATED RINGER'S 1000 ML INJ 1,000 ML IV SCH (17:45)
[2017-09-22 20:00] VITALS: BP 144/75; PULSE 83; RESP 20; TEMP 99.1; O2SAT 95
[2017-09-22] MEDS: INSULIN DETEMIR 100 UNITS/ML VIAL SQ SCH (20:03)
[2017-09-23 00:05] VITALS: BP 121/71; PULSE 89; RESP 20; TEMP 99; O2SAT 98
[2017-09-23] MEDS: MORPHINE SULFATE 2 MG/ML INJ IV PRN ×3 (00:31→17:41)
[2017-09-23 04:00] VITALS: BP 147/76; PULSE 71; RESP 20; TEMP 98.2; O2SAT 98
[2017-09-23] MEDS: oxyCODONE/ACETAMINOPHEN 7.5 MG/325 MG TAB PO PRN ×3 (04:39→21:24)
[2017-09-23 08:00] VITALS: BP 124/68; PULSE 66; RESP 16; TEMP 98.5; O2SAT 100
[2017-09-23] MEDS: LISINOPRIL 10 MG TAB PO SCH (09:54)
[2017-09-23] MEDS: OXYBUTYNIN CHLORIDE 5 MG TAB PO SCH ×2 (09:55→21:23)
--- NOTE | 2017-09-23 10:53 | HHI.PR ---
Subjective Patient symptoms today Pt seen and examined. Feels well. Some hematuria overnight. Objective Vital Signs Vital Signs Date Time Temp Pulse Resp B/P (MAP) Pulse Ox O2 Delivery O2 Flow Rate FiO2 09/23/17 08:00 98.5 66 16 124/68 (86) 100 09/23/17 04:00 98.2 71 20 147/76 (99) 98 09/23/17 00:05 99.0 89 20 121/71 (88) 98 09/22/17 21:00 Room Air 09/22/17 20:00 99.1 83 20 144/75 (98) 95 09/22/17 16:51 98.9 87 20 161/76 (104) 99 09/22/17 11:55 98.5 82 20 142/81 (101) 98 Intake & Output 09/23/17 09/23/17 07:00 19:00 Intake Total 1000 ml Output Total 2500 ml Balance -1500 ml Intake Oral 1000 ml Output Urine Total 2500 ml Result Diagram: 09/20/17 0417 09/19/17 0407 Objective Remarks Abd:soft,nt,nd Dressing intact [place]: slight blood tinged urine; on CBI 09/19 Abd:soft,nt,nd Wound: clean and dry [place]: pink urine on CBI 09/20 Abd:soft,nt,nd [place]: urine clear: CBI off Wound: clean and dry Ext: neg C/C/E 09/21 Abd:soft,nt,nd [place]: urine slight blood tinge Wound: clean and dry Ext: neg C/C/E 09/22 Abd:soft,nt,nd [place]: old blood; urine clearing Wound: clean and dry Ext: neg C/C/E 09/23 Abd:soft,nt,nd [place]: old blood; urine clearing Wound: clean and dry Ext: neg C/C/E Medications and IVs Current Medications Medications (Trade) Dose Ordered Sig/Jluis Route Start Time Stop Time Status Last Admin (Antivert) 25 mg Q8H PRN PO 09/17/17 11:30 (Norvasc) 10 mg DAILY PO 09/18/17 09:00 09/23/17 09:55 (Levemir Inj) 10 units HS SQ 09/17/17 21:00 09/22/17 20:03 (Prinivil) 30 mg DAILY PO 09/18/17 09:00 09/23/17 09:54 (Ditropan) 5 mg Q12HR PO 09/17/17 21:00 09/23/17 09:55 (Zofran Inj) 4 mg Q6HR PRN IV PUSH 09/17/17 11:30 09/17/17 23:12 (Tylenol 650 Mg/ 20 ml Liq) 650 mg Q6H PRN PO 09/17/17 14:00 (Valium) 5 mg Q12H PRN PO 09/17/17 11:30 09/20/17 08:37 (Benadryl Inj) 25 mg Q6H PRN IV PUSH 09/17/17 13:00 Potassium Chloride 20 meq/ Lactated Ringer's 1,010 ml @ 60 mls/hr [id number] IV 09/17/17 14:00 09/22/17 17:45 (Percocet 7.5-325 Mg) 1 tab Q6H PRN PO 09/20/17 09:30 09/23/17 04:39 (B & O Supp) 60 mg Q6HR PRN RECTAL 09/20/17 12:00 09/21/17 05:51 (Morphine Inj) 2 mg Q4H PRN IV 09/20/17 13:30 09/23/17 10:05 Assessment and Plan Assessment and Plan Stable s/p SPP POD#1 OOB to chair Continue CBI Check Labs 3/ Stable s/p SPP POD#2 OOB to chair Full liquid diet Continue Amicar CBI 3/2 Stable s/p SPP POD#3 OOB/Ambulate CBI clamped to off SP tube plugged Regular diet 3/3 Stable s/p SPP POD#4 OOB/Ambulate Ducolux suppository 3/4 Stable s/p SPP POD#5 OOB/Ambulate 3/5 Stable s/p SPP POD#6 OOB/Ambulate Plan for discharge in AM if urine remains clear. Tanner Rene DO Sep 23, 2017 10:53
[2017-09-23 12:00] VITALS: BP 125/63; PULSE 87; RESP 16; TEMP 99.2; O2SAT 100
[2017-09-23] MEDS: LACTATED RINGER S IV SCH ×3 (14:59→23:49)
[2017-09-23] MEDS: POTASSIUM CHLORIDE IV SCH ×3 (14:59→23:49)
[2017-09-23 16:00] VITALS: BP 111/63; PULSE 80; RESP 16; TEMP 98.3; O2SAT 100
[2017-09-23 21:16] VITALS: BP 131/70; PULSE 79; RESP 20; TEMP 98.5; O2SAT 97
[2017-09-23] MEDS: INSULIN DETEMIR 100 UNITS/ML VIAL SQ SCH (21:24)
[2017-09-24 00:16] VITALS: BP 119/65; PULSE 85; RESP 29; TEMP 98.3; O2SAT 96
[2017-09-24] MEDS: BELLADONNA ALKALOIDS/OPIUM 60 MG SUPP RECTAL PRN ×3 (00:25→21:15)
[2017-09-24 04:49] VITALS: BP 125/73; PULSE 73; RESP 11; TEMP 98.5; O2SAT 99
[2017-09-24 07:28] VITALS: BP 139/72; PULSE 73; RESP 18; TEMP 98.4; O2SAT 97
--- NOTE | 2017-09-24 08:29 | HHI.PR ---
Subjective Patient symptoms today Pt seen and examined. Doing well overall. Urine clearing. Objective Vital Signs Vital Signs Date Time Temp Pulse Resp B/P (MAP) Pulse Ox O2 Delivery O2 Flow Rate FiO2 09/24/17 07:28 98.4 73 18 139/72 (94) 97 09/24/17 04:49 98.5 73 11 125/73 (90) 99 09/24/17 00:16 98.3 85 29 119/65 (83) 96 09/23/17 23:25 18 09/23/17 21:16 98.5 79 20 131/70 (90) 97 09/23/17 20:00 Room Air 09/23/17 18:00 Room Air 2.00 09/23/17 16:00 98.3 80 16 111/63 (79) 100 09/23/17 12:00 99.2 87 16 125/63 (83) 100 Intake & Output 09/24/17 09/24/17 07:00 19:00 Intake Total 805 ml Output Total 1150 ml Balance -345 ml IV Total 805 ml Output Urine Total 1150 ml Result Diagram: 09/20/17 0417 Objective Remarks Abd:soft,nt,nd Dressing intact [place]: slight blood tinged urine; on CBI 09/19 Abd:soft,nt,nd Wound: clean and dry [place]: pink urine on CBI 09/20 Abd:soft,nt,nd [place]: urine clear: CBI off Wound: clean and dry Ext: neg C/C/E 09/21 Abd:soft,nt,nd [place]: urine slight blood tinge Wound: clean and dry Ext: neg C/C/E 09/22 Abd:soft,nt,nd [place]: old blood; urine clearing Wound: clean and dry Ext: neg C/C/E 09/23 Abd:soft,nt,nd [place]: old blood; urine clearing Wound: clean and dry Ext: neg C/C/E 09/24 Abd:soft,nt,nd Urine: clear Wound: clean and dry Ext: neg C/C/E Medications and IVs Current Medications Medications (Trade) Dose Ordered Sig/Jluis Route Start Time Stop Time Status Last Admin (Antivert) 25 mg Q8H PRN PO 09/17/17 11:30 (Norvasc) 10 mg DAILY PO 09/18/17 09:00 09/23/17 09:55 (Levemir Inj) 10 units HS SQ 09/17/17 21:00 09/23/17 21:24 (Prinivil) 30 mg DAILY PO 09/18/17 09:00 09/23/17 09:54 (Ditropan) 5 mg Q12HR PO 09/17/17 21:00 09/23/17 21:23 (Zofran Inj) 4 mg Q6HR PRN IV PUSH 09/17/17 11:30 09/17/17 23:12 (Tylenol 650 Mg/ 20 ml Liq) 650 mg Q6H PRN PO 09/17/17 14:00 (Valium) 5 mg Q12H PRN PO 09/17/17 11:30 09/20/17 08:37 (Benadryl Inj) 25 mg Q6H PRN IV PUSH 09/17/17 13:00 (Percocet 7.5-325 Mg) 1 tab Q6H PRN PO 09/20/17 09:30 09/23/17 21:24 (B & O Supp) 60 mg Q6HR PRN RECTAL 09/20/17 12:00 09/24/17 00:25 (Morphine Inj) 2 mg Q4H PRN IV 09/20/17 13:30 09/23/17 17:41 Potassium Chloride 10 meq/ Lactated Ringer's 505 ml @ 60 mls/hr Q8H25M IV 09/23/17 11:00 09/23/17 23:49 Assessment and Plan Assessment and Plan Stable s/p SPP POD#1 OOB to chair Continue CBI Check Labs 3/ Stable s/p SPP POD#2 OOB to chair Full liquid diet Continue Amicar CBI 3/2 Stable s/p SPP POD#3 OOB/Ambulate CBI clamped to off SP tube plugged Regular diet 3/ Stable s/p SPP POD#4 OOB/Ambulate Ducolux suppository 3/4 Stable s/p SPP POD#5 OOB/Ambulate 3/5 Stable s/p SPP POD#6 OOB/Ambulate Plan for discharge in AM if urine remains clear. 3/ Stable s/p SPP POD#7 Strat[place] removed. Void trial today Possible D/C home later today Tanner Rene DO Sep 24, 2017 08:29
[2017-09-24] MEDS: OXYBUTYNIN CHLORIDE 5 MG TAB PO SCH ×2 (08:45→21:09)
[2017-09-24] MEDS: LISINOPRIL 10 MG TAB PO SCH (08:46)
[2017-09-24] MEDS: oxyCODONE/ACETAMINOPHEN 7.5 MG/325 MG TAB PO PRN ×2 (09:59→21:15)
[2017-09-24 11:46] VITALS: BP 115/63; PULSE 84; RESP 18; TEMP 98.6; O2SAT 98
[2017-09-24] MEDS ORDERED: POTASSIUM CHLORIDE INJ 20 MEQ in LACTATED RINGER'S 1000 ML INJ 1,000 ML IV SCH (15:00)
[2017-09-24] MEDS: POTASSIUM CHLORIDE INJ 20 MEQ in LACTATED RINGER'S 1000 ML INJ 1,000 ML IV SCH (15:05)
[2017-09-24 15:36] VITALS: BP 127/62; PULSE 86; RESP 18; TEMP 97.9; O2SAT 99
[2017-09-24 20:00] VITALS: BP 151/72; PULSE 80; RESP 20; TEMP 98.5; O2SAT 100
[2017-09-24] MEDS: INSULIN DETEMIR 100 UNITS/ML VIAL SQ SCH (21:09)
[2017-09-25] VITALS: BP 127/67; PULSE 73; RESP 22; TEMP 98.7; O2SAT 97
[2017-09-25] MEDS: POTASSIUM CHLORIDE INJ 20 MEQ in LACTATED RINGER'S 1000 ML INJ 1,000 ML IV SCH ×2 (01:50→08:46)
[2017-09-25] MEDS: MORPHINE SULFATE 2 MG/ML INJ IV PRN (03:21)
[2017-09-25 04:00] VITALS: BP 125/70; PULSE 71; RESP 20; TEMP 98.5; O2SAT 97
[2017-09-25 08:00] VITALS: BP 126/67; PULSE 74; RESP 15; TEMP 98.6; O2SAT 96
[2017-09-25] MEDS: LISINOPRIL 10 MG TAB PO SCH (08:47)
[2017-09-25] MEDS: OXYBUTYNIN CHLORIDE 5 MG TAB PO SCH (08:47)
[2017-09-25] MEDS: oxyCODONE/ACETAMINOPHEN 7.5 MG/325 MG TAB PO PRN (08:48)
[2017-09-25] MEDS: BELLADONNA ALKALOIDS/OPIUM 60 MG SUPP RECTAL PRN (08:48)
[2017-09-25] MEDS ORDERED: BACT800T5 PO ×2 (11:01→11:02)
[2017-09-25] MEDS ORDERED: PERC5TAB12 PO (11:02)
[2017-09-25] MEDS ORDERED: COLA100C5 PO (11:03)
--- NOTE | 2017-09-25 11:13 | HHI.FF ---
Face to Face Verification Diagnosis: (1) BPH (benign prostatic hyperplasia) Physical Therapy Order: Evaluate and Treat Occupational Therapy Order: Improve ADL Home Health Nursing Order: Medical education Signs/symptoms of disease process Diabetic education Home Health Aide Order: To Assist In: Bathing and personal care Sourcing Specialist Order: To Evaluate: Support services I have seen patient Demarcus Cunha on 09/25/17. My clinical findings support the need for the requested home health care services because: Med compliance is questionable I certify that my clinical findings support that this patient is homebound because: Post-op weakness manage SP tube. Unclamp SP tube after voiding to check post void residuals Wound care Tanner Rene DO Sep 25, 2017 11:13
--- NOTE | 2017-09-25 11:16 | HHI.PR ---
Subjective Patient symptoms today Pt seen and examined. Feels well and voiding. Objective Vital Signs Vital Signs Date Time Temp Pulse Resp B/P (MAP) Pulse Ox O2 Delivery O2 Flow Rate FiO2 09/25/17 08:00 98.6 74 15 126/67 (86) 96 09/25/17 04:00 98.5 71 20 125/70 (88) 97 09/25/17 00:00 98.7 73 22 127/67 (87) 97 09/24/17 20:00 98.5 80 20 151/72 (98) 100 09/24/17 15:36 97.9 86 18 127/62 (83) 99 09/24/17 11:46 98.6 84 18 115/63 (80) 98 Intake & Output 09/25/17 09/25/17 07:00 19:00 Intake Total 1735 ml Output Total 1300 ml 200 ml Balance 435 ml -200 ml Intake Oral 300 ml IV Total 1435 ml Output Urine Total 1300 ml 200 ml # Bowel Movements 0 Objective Remarks Abd:soft,nt,nd Dressing intact [place]: slight blood tinged urine; on CBI 09/19 Abd:soft,nt,nd Wound: clean and dry [place]: pink urine on CBI 09/20 Abd:soft,nt,nd [place]: urine clear: CBI off Wound: clean and dry Ext: neg C/C/E 09/21 Abd:soft,nt,nd [place]: urine slight blood tinge Wound: clean and dry Ext: neg C/C/E 09/22 Abd:soft,nt,nd [place]: old blood; urine clearing Wound: clean and dry Ext: neg C/C/E 09/23 Abd:soft,nt,nd [place]: old blood; urine clearing Wound: clean and dry Ext: neg C/C/E 09/24 Abd:soft,nt,nd Urine: clear Wound: clean and dry Ext: neg C/C/E 09/25 Abd:soft,nt,nd SP tube: clean and dry Voiding well Medications and IVs Current Medications Medications (Trade) Dose Ordered Sig/Jluis Route Start Time Stop Time Status Last Admin (Antivert) 25 mg Q8H PRN PO 09/17/17 11:30 (Norvasc) 10 mg DAILY PO 09/18/17 09:00 09/25/17 08:47 (Levemir Inj) 10 units HS SQ 09/17/17 21:00 09/24/17 21:09 (Prinivil) 30 mg DAILY PO 09/18/17 09:00 09/25/17 08:47 (Ditropan) 5 mg Q12HR PO 09/17/17 21:00 09/25/17 08:47 (Zofran Inj) 4 mg Q6HR PRN IV PUSH 09/17/17 11:30 09/17/17 23:12 (Tylenol 650 Mg/ 20 ml Liq) 650 mg Q6H PRN PO 09/17/17 14:00 (Valium) 5 mg Q12H PRN PO 09/17/17 11:30 09/20/17 08:37 (Benadryl Inj) 25 mg Q6H PRN IV PUSH 09/17/17 13:00 (Percocet 7.5-325 Mg) 1 tab Q6H PRN PO 09/20/17 09:30 09/25/17 08:48 (B & O Supp) 60 mg Q6HR PRN RECTAL 09/20/17 12:00 09/25/17 08:48 (Morphine Inj) 2 mg Q4H PRN IV 09/20/17 13:30 09/25/17 03:21 Potassium Chloride 20 meq/ Lactated Ringer's 1,010 ml @ 125 mls/hr Q8H5M IV 09/24/17 15:15 09/25/17 08:46 Assessment and Plan Assessment and Plan Stable s/p SPP POD#1 OOB to chair Continue CBI Check Labs 3/ Stable s/p SPP POD#2 OOB to chair Full liquid diet Continue Amicar CBI 3/ Stable s/p SPP POD#3 OOB/Ambulate CBI clamped to off SP tube plugged Regular diet 3/ Stable s/p SPP POD#4 OOB/Ambulate Ducolux suppository 3/ Stable s/p SPP POD#5 OOB/Ambulate / Stable s/p SPP POD#6 OOB/Ambulate Plan for discharge in AM if urine remains clear. 09/24 Stable s/p SPP POD#7 [place] removed. Void trial today Possible D/C home later today 09/25 Stable S/P SPP POD#8 D/C home F/U one week for staple removal Tanner Rene DO Sep 25, 2017 11:16
[2017-09-25 12:00] VITALS: BP 138/70; PULSE 75; RESP 22; TEMP 99.1; O2SAT 97
== END 2017-09-25 14:14 | disposition home or self-care (01) | DRG 708 ==
LOC: HSDI 09-17 05:30 → N03B 09-17 17:02
PROVIDERS: ADMIT Urology; ATTEND Urology
PROC: 30233K1 Transfusion of Nonautologous Frozen Plasma into Peripheral Vein, Percutaneous Approach (ICD-10-PCS; 2017-09-17)
PROC: 0VT00ZZ Resection of Prostate, Open Approach (ICD-10-PCS; principal; 2017-09-17 08:06)
DX: N40.1 Benign prostatic hyperplasia with lower urinary tract symptoms (principal); Z93.59 Other cystostomy status; I10 Essential (primary) hypertension; E11.9 Type 2 diabetes mellitus without complications; N32.0 Bladder-neck obstruction; R31.9 Hematuria, unspecified; Z79.4 Long term (current) use of insulin
CPT/HCPCS: 36430; 80048; 82805; 82948; 85027; 85610; 85730; 86850; 86900; 86901; 86920; 86927; 88307; 94150; A4346; J0131; J0290; J0690; J1100; J1170; J1580; J1815; J1940; J2270; J2370; J2405; J2710; J3010; J3480; J7120; P9016; P9017

== ENCOUNTER → 2017-09-10 | Outpatient (CLI) | payer MEDICAID ==
[~2017-09-10] MED LIST changes: +LEVO500T8 PO
[2017-09-10 12:29] LABS: AUTOMATED NEUTROPHIL # 2.2 TH/MM3 (1.8-7.7); BASOPHIL % 0.5 % (0.0-2.0); EOSINOPHIL % 1.2 % (0.0-4.0); HEMATOCRIT 36.2 % (39.0-51.0); HEMOGLOBIN 12.2 GM/DL (13.0-17.0); LYMPH % 24.2 % (9.0-44.0); LYMPHOCYTE # 0.8 TH/MM3 (1.0-4.8); MEAN CELL VOLUME 90.8 FL (80.0-100.0); MEAN CORPUSCULAR HEMOGLOBIN 30.7 PG (27.0-34.0); MEAN CORPUSCULAR HGB CONC 33.8 % (32.0-36.0); MEAN PLATELET VOLUME 10.6 FL (7.0-11.0); MONO % 4.3 % (0.0-8.0); MONOCYTE # 0.1 TH/MM3 (0-0.9); NEUT % 69.8 % (16.0-70.0); PLATELET COUNT 129 TH/MM3 (150-450); RED BLOOD COUNT 3.98 MIL/MM3 (4.50-5.90); RED CELL DISTRIBUTION WIDTH 13.9 % (11.6-17.2); WHITE BLOOD COUNT 3.2 TH/MM3 (4.0-11.0)
[2017-09-10 12:35] LABS: INTERNATIONAL NORMALIZED RATIO 1.3 RATIO; PROTHROMBIN TIME - PATIENT 13.5 SEC (9.8-11.6)
[2017-09-10 12:49] LABS: ALBUMIN 3.6 GM/DL (3.4-5.0); ALT (GPT) 16 U/L (12-78); AST (GOT) 25 U/L (15-37); BICARBONATE 26.2 MEQ/L (21.0-32.0); BLOOD UREA NITROGEN 14 MG/DL (7-18); CALCIUM 8.9 MG/DL (8.5-10.1); CHLORIDE 109 MEQ/L (98-107); CREATININE 1.42 MG/DL (0.60-1.30); GLOMERULAR FILTRATION RATE 62 ML/MIN (>89); GLUCOSE,FASTING 141 MG/DL (74-99); SODIUM (NA) 141 MEQ/L (136-145)
[2017-09-10 12:52] LABS: ALKALINE PHOSPHATASE 88 U/L (45-117); TOTAL BILIRUBIN ADULT 0.3 MG/DL (0.2-1.0); TOTAL PROTEIN 7.8 GM/DL (6.4-8.2)
== END ==
LOC: CPRE 11:40
PROVIDERS: ATTEND Urology
DX: Z01.812 Encounter for preprocedural laboratory examination (principal)
CPT/HCPCS: 36415; 80053; 85025; 85610; 85730